=== PATIENT | female | born 1955 | race Caucasian/White ===

== ENCOUNTER 2025-08-19 16:02 | Inpatient (IN) | payer OTHER ==
[~2025-08-19] VITALS: Ht 160 cm; Wt 55.8 kg
--- NOTE | 2025-08-19 16:21 | ED.PDOC ---
History of Present Illness HPI Comments 70 year old female with PMHx COPD presents to the ED with a chief complaint of generalized weakness onset 1 week. Patient states she has been experiencing generalized weakness for the past week, worsened today. She is usually on home O2, 2L due to COPD. Patient noticed bilateral leg weakness, cough, sore throat. Denies chest pain, headache, nausea, vomiting, diarrhea, hematuria, dizziness. No other symptoms or modifying factors present at this time. Chief Complaint: General Weakness Time Seen by MD: 16:20 Reviewed Notes: Medications, Allergies Allergies: Coded Allergies: Acetaminophen (Verified Allergy, Severe, 08/19/25) Codeine (Verified Allergy, Severe, 08/19/25) Home Meds Reported Medications Omeprazole (Gnp Omeprazole) 20 Mg Tab, 40 MG PO, TAB 08/20/25 Primidone (Primidone) 125 Mg Tab, 1 TAB PO BID 08/20/25 Information Source: Patient, Emergency Med Personnel Mode of Arrival: EMS Severity: Moderate Timing: Weeks Duration: Since onset Prehospital treatment: None Past Medical History PAST MEDICAL HISTORY: COPD Surgical History: Denies all surgeries GRINDER HAND History: No Pertinent GRINDER HAND History Family History Family History: Reviewed,noncontributory to illness, No family hx of Cancer, No family hx of DM, No family hx of Heart joanne, No family hx of HTN, No family hx ofKidney joanne, No family hx of Liver joanne, No family hx of Lung joanne, No family hx of Stroke Social History Smoker: Non-Smoker Alcohol: Denies ETOH Use Drugs: Denies Drug Use Lives In: Home Constitutional: reports: weakness; denies: chills, diaphoresis, fatigue, fever, malaise, sweats, others EENTM: reports: throat pain; denies: blurred vision, double vision, ear bleeding, ear discharge, ear drainage, ear pain, ear ringing, eye pain, eye redness, hearing loss, mouth pain, mouth swelling, nasal discharge, nose bleeding, nose congestion, nose pain, photophobia, tearing, throat swelling, voice changes, others Respiratory: reports: cough; denies: hemoptysis, orthopnea, SOB at rest, shortness of breath, SOB with excertion, stridor, wheezing, others Cardiovascular: denies: chest pain, dizzy spells, diaphoresis, Dyspnea on exertion, edema, irregular heart beat, left arm pain, lightheadedness, palpitations, PND, syncope, others Gastrointestinal: denies: abdomen distended, abdominal pain, blood streaked bowels, constipated, diarrhea, dysphagia, difficulty swallowing, hematemesis, melena, nausea, poor appetite, poor fluid intake, rectal bleeding, rectal pain, vomiting, others Genitourinary: denies: abnormal vagina bleeding, burning, dyspareunia, dysuria, flank pain, frequency, hematuria, incontinence, pain, , vagina discharge, urgency, others Neurological: reports: weakness; denies: dizziness, fainting, headache, left sided numbness, left sided weakness, numbness, paresthesia, pre-existing deficit, right sided numbness, right sided weakness, seizure, speech problems, tingling, tremors, others Musculoskeletal: denies: back pain, gout, joint pain, joint swelling, muscle pain, muscle stiffness, neck pain, others Integumetry: denies: bruises, change in color, change in hair/nails, dryness, laceration, lesions, lumps, rash, wounds, others Allergic/Immunocompromised: denies: Difficulty Healing, Frequent Infections, Hives, Itching, others Hematologic/Lymphatic: denies: anemia, blood clots, easy bleeding, easy bruising, swollen glands, others Endocrine: denies: excessive hunger, excessive sweating, excessive thirst, excessive urination, flushing, intolerance to cold, intolerance to heat, unexplained weight gain, unexplained weight loss, others Psychiatric: denies: anxiety, bipolar disorder, depression, hopeless, panic disorder, schizophrenia, sleepless, suicidal, others All Other Systems: Reviewed and Negative Physical Exam General Appearance: Normal HEENT: Normal ENT Inspection, Pharynx Normal, TMs Normal Neck: Full Range of Motion, Non-Tender, Normal, Normal Inspection Respiratory: Chest Non-Tender, Lungs Clear, No Accessory Muscle Use, No Respiratory Distress, Normal Breath Sounds Cardiovascular: No Edema, No JVD, No Murmur, No Gallop, Normal Peripheral Pulses, Regular Rate/Rhythm Breast Exam: Deferred Gastrointestinal: No Organomegaly, Non Tender, No Pulsatile Mass, Normal Bowel Sounds, Soft Genitalia: Deferred Pelvic: Deferred Rectal: Deferred Extremities: No calf tenderness, Normal capillary refill, Normal inspection, Normal range of motion, Non-tender, No pedal edema Musculoskeletal : Apperance: Normal Neurologic: Alert, cookie mixer helper II-XII nml as Tested, No Motor Deficits, Normal Affect, Normal Mood, No Sensory Deficits Cerebellar Function: Normal Reflexes: Normal Skin: Dry, Normal Color, Warm Lymphatic: No Adenopathy Was a procedure done? Was a procedure done?: No Differential Dx Considerations may include: ACS, CHF, COPD, CVA, electrolyte abnormality X-Ray, Labs, Meds, VS Vital Signs Date Time Temp Pulse Resp B/P (MAP) Pulse Ox O2 Delivery O2 Flow Rate FiO2 08/19/25 20:01 98 Room Air* 0 21 08/19/25 18:43 99.0 72 14 137/65 (89) 99 99.0 08/19/25 16:12 73 08/19/25 16:05 98.9 88 15 140/69 100 98.9 Lab Test 08/19/25 19:59 08/19/25 17:58 08/19/25 17:05 08/19/25 16:50 Range/Units Troponin I High Sensitivity 38 *H 38 *H 40 *H </=34 ng/L White Blood Count 2.3 L 4.4-10.8 10^3/uL Red Blood Count 3.60 L 4.0-5.20 10^6/uL Hemoglobin 11.0 L 12.2-16.2 g/dL Hematocrit 35.0 L 36.0-46.0 % Mean Corpuscular Volume 97.4 80.0-100.0 fL Mean Corpuscular Hemoglobin 30.7 28.0-32.0 pg Mean Corpuscular Hemoglobin Concent 31.5 L 32.0-36.0 g/dL Red Cell Distribution Width 22.0 H 11.8-14.3 % Platelet Count 170 140-450 10^3/uL Mean Platelet Volume 6.8 L 6.9-10.8 fL Neutrophils (%) (Auto) 75.3 37.0-80.0 % Lymphocytes (%) (Auto) 16.2 10.0-50.0 % Monocytes (%) (Auto) 7.4 0.0-12.0 % Eosinophils (%) (Auto) 0.3 0.0-7.0 % Basophils (%) (Auto) 0.8 0.0-2.0 % Neutrophils # (Auto) 1.7 1.6-8.6 10 ^3/uL Lymphocytes # (Auto) 0.4 0.4-5.4 10 ^3/uL Monocytes # (Auto) 0.2 0-1.3 10 ^3/uL Eosinophils # (Auto) 0 0-0.8 10 ^3/uL Basophils # (Auto) 0 0-0.2 10 ^3/uL Nucleated Red Blood Cells 0.5 % Sodium Level 142 136-145 mmol/L Potassium Level 2.9 L 3.5-5.1 mmol/L Chloride Level 104 98-107 mmol/L Carbon Dioxide Level 20 20-31 mmol/L Anion Gap 18 H 5-15 Blood Urea Nitrogen 6 L 9-23 mg/dL Creatinine 0.76 0.550-1.02 mg/dL Glomerular Filtration Rate Calc 84 >90 mL/min BUN/Creatinine Ratio 7.9 L 10.0-20.0 Serum Glucose 68 L 74-106 mg/dL Lactic Acid Level 0.7 0.4-2.0 mmol/L Calcium Level 7.9 L 8.7-10.4 mg/dL Total Bilirubin 0.8 0.2-1.0 mg/dL Aspartate Amino Transferase (AST) 24 13-40 U/L Alanine Aminotransferase (ALT) 17 7-40 U/L Alkaline Phosphatase 82 46-116 U/L Total Protein 6.2 5.7-8.2 g/dL Albumin 3.8 3.2-4.8 g/dL Lipase 21 12-53 U/L Urine Color Light-yellow Yellow Urine Clarity Clear Clear Urine pH 6.0 5.0-9.0 Urine Specific [place] 1.014 1.001-1.035 Urine Protein Trace H Negative Urine Ketones 4+ H Negative Urine Blood Negative Negative /uL Urine Nitrite Negative Negative Urine Bilirubin Negative Negative Urine Urobilinogen Normal Negative mg/dL Urine Leukocyte Esterase Negative Negative /uL Urine RBC 1 0 - 4 /hpf Urine Microscopic WBC 1 0-5 /HPF Urine Squamous Epithelial Cells Few <5 /hpf Urine Bacteria None seen None Seen /hpf Urine Glucose Normal Normal mg/dL Microbiology Date/Time Source Procedure Growth Status 08/19/25 17:15 Blood Blood Culture - Preliminary NO GROWTH AFTER 48 HOURS OF INCUBATION. Resulted 08/19/25 17:05 Blood Blood Culture - Preliminary NO GROWTH AFTER 48 HOURS OF INCUBATION. Resulted 08/19/25 16:50 Voided Urine Urine Culture - Preliminary Resulted Time of 1ST Reevaluation: 16:50 Reevaluation 1ST: Unchanged Patient Education/Counseling: Diagnosis, Treatment, Prognosis Family Education/Counseling: No Family Present SEPSIS Sepsis Screen Date sepsis recognized/suspect: Aug 19, 2025 Time Sepsis recognized/suspect: 1605 Recent Procedure: No On Antibiotic Therapy: No Respiratory Rate >20: No Heart Rate >90: No Temp<36 C (96.8 F) or >38.3 C: No SBP <90 or MAP <65 mmHG: No New Acute Mental Status Change: No Is the patient on CPAP, BIPAP,: No Physician Orders Chest Portable (08/19/25 16:17) Head Without Contrast (08/19/25 16:17) Blood Culture (08/19/25 16:17) Urine Bacterial Culture (08/19/25 16:17) Electrocardigram (08/19/25 17:17) Electrocardigram (08/19/25 19:17) Atorvastatin (Lipitor) (08/20/25 22:00) Albuterol Medneb (Ventolin Medneb) (08/19/25 22:45) Aspirin Tablet (08/20/25 10:00) Admit (08/19/25 22:33) Ondansetron Hcl (Zofran) (08/19/25 22:45) Cardiac Diet-2gna,Lofat,Lochol (08/20/25 Breakfast) Condition: Stable (08/19/25 22:33) Bedrest With Bathroom Privileg (08/19/25 22:33) Pt Request For Service (08/19/25 22:33) Vital Signs Date Time Temp Pulse Resp B/P (MAP) Pulse Ox O2 Delivery O2 Flow Rate FiO2 08/19/25 20:01 98 Room Air* 0 21 08/19/25 18:43 99.0 72 14 137/65 (89) 99 99.0 08/19/25 16:12 73 08/19/25 16:05 98.9 88 15 140/69 100 98.9 Laboratory Tests Test 08/19/25 17:05 Lactic Acid Level 0.7 mmol/L (0.4-2.0) White Blood Count 2.3 10^3/uL (4.4-10.8) L Departure 1 Departure Time of Disposition: 19:04 Impression: Primary Impression: Generalized weakness Additional Impressions: Unable to ambulate Hypokalemia Elevated troponin Disposition: ADMITTED INPATIENT Admit to: Tele Condition: Guarded Discharged With: Self Critical Care Note Critical Care Time?: No Stability Stability form required: No Heart Score Heart Score: Heart Score Response (Comments) Value History N/A 0 EKG N/A 0 Age N/A 0 Risk Factors N/A 0 Troponin N/A 0 Total 0 I personally scribed for NICOLE LOUISE MD ([email or web address]) on 08/19/25 at 16:21. Electronically submitted by Katey Gutiérrez ([email or web address]). NICOLE LOUISE MD Aug 19, 2025 16:21 DANN SANDERS DO Aug 19, 2025 19:05
--- NOTE | 2025-08-19 16:56 | ECG ---
[facility] Test Date: 2025-08-19 Test Time: 16:12:26 Pat Name: DAMIEN COPELAND Department: Room: 0219 Gender: F Health Promoter: RADHA : 1955 Requested By: NICOLE LOUISE Order Number: [id number] Reading MD: Ceferino Chong Measurements Intervals [place] Rate: 73 P: 40 MI: 113 QRS: 64 QRSD: 101 T: -53 QT: 396 QTc: 437 Interpretive Statements Sinus rhythm Borderline short MI interval RSR' in V1 or V2, right VCD or RVH Borderline T abnormalities, diffuse leads Baseline wander in lead(s) V1 Electronically Signed On 08-22-2025 19:22:28 PST by Ceferino Chong Please click the below link to view image of tracing.
[2025-08-19 17:36] LABS: Hematocrit 35.0 % (36.0-46.0); Hemoglobin 11.0 g/dL (12.2-16.2); Mean Corpuscular Hemoglobin 30.7 pg (28.0-32.0); Mean Corpuscular Volume 97.4 fL (80.0-100.0); Nucleated Red Blood Cells % 0.5 %
[2025-08-19 18:47] LABS: Alanine Aminotransferase 17 U/L (7-40); Albumin 3.8 g/dL (3.2-4.8); Alkaline Phosphatase 82 U/L (46-116); Anion Gap 18 (5-15); BUN/Creatinine Ratio 7.9 (10.0-20.0); Bilirubin, Total 0.8 mg/dL (0.2-1.0); Chloride 104 mmol/L (98-107); Lipase 21 U/L (12-53); Sodium 142 mmol/L (136-145); Total Protein 6.2 g/dL (5.7-8.2)
[2025-08-19 18:48] LABS: Urine Protein, UAD TRACE (Negative)
[2025-08-19 18:55] LABS: Blood Urea Nitrogen 6 mg/dL (9-23); Calcium 7.9 mg/dL (8.7-10.4); Carbon Dioxide 20 mmol/L (20-31); Glucose 68 mg/dL (74-106); Potassium 2.9 mmol/L (3.5-5.1)
--- NOTE | 2025-08-19 19:04 | DVH ---
Procedure: CT HEAD WITHOUT CONTRAST Study Date and Requested Time: 08/19/2025 06:19 PM History: weakness Comparison: None Dose: CTDI: 51.33 mGy DLP: 1.71 mGycm Technique: Multiplanar images obtained through the brain without intravenous contrast. Findings: [id number] Diffuse brain atrophy Mild chronic small vessel ischemic changes. Right posterior frontal lobe areas of hypodensity with associated Adjacent prominent sulci. No hemorrhages, masses, mass effect, midline shift, herniation or cytotoxic edema following a large vascular territory. No intra-axial or extra-axial fluid collections. No evidence of hydrocephalus. The basal cisterns are patent. The pituitary gland, sella and parasellar regions are unremarkable. The cerebellar tonsils are in normal position. The cerebellum is unremarkable. Bilateral lens replacement. Otherwise, orbits and globes are unremarkable. The paranasal sinuses and mastoids are clear. There are no worrisome calvarial lesions. 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 Superimposed acute infarct can not be completely excluded. If there is concern for acute infarct, MRI should be considered for further evaluation.
--- NOTE | 2025-08-19 19:21 | DVH ---
CHEST RADIOGRAPH Indication: weakness Technique: Single frontal view of the chest was obtained Comparison: XR CHEST 1 VIEW on DOS: 06/14/25 FINDINGS: Lines and Tubes: None Lungs: No focal consolidation. Pleura: No effusion. No pneumothorax. Cardiomediastinal contours: Unremarkable Bones: No acute osseous abnormality. IMPRESSION: 1. No acute cardiopulmonary disease.
[2025-08-19 20:01] VITALS: O2SAT 98
[2025-08-19] MEDS: POTASSIUM CHL 20 Meq TABLET PO ONE (20:01)
[2025-08-19] MEDS: ASPirin-EC 325mg tab PO ONE (22:08)
[2025-08-20] VITALS (11 sets, daily range): BP systolic 137–156; BP diastolic 76–82; PULSE 73–83; RESP 14–18; TEMP 97.6–98.2; O2SAT 90–99
--- NOTE | 2025-08-20 00:58 | DVHHP2 ---
History of Present Illness Reason for Visit: Generalized weakness History of Present Illness 70-year-old female presents for evaluation of generalized weakness. Patient reports a one-week history of worsening generalized weakness. Patient reports having bilateral lower extremity pain and weakness making it difficult to ambula te. Patient reports living alone and does not have anyone to assist her. Denies unilateral weakness or slurred speech. No cardiac or respiratory complaints. Past Medical History COPD Past Surgical History Denies Family History Noncontributory Smoke: No ALCOHOL: none Drugs: None Lives: Alone Review of Systems Review of Systems Review of systems are currently negative otherwise addressed in HPI. Allergies: Coded Allergies: Acetaminophen (Verified Allergy, Severe, 08/19/25) Codeine (Verified Allergy, Severe, 08/19/25) Medications Current Medications Medications Dose Ordered Sig/Darci Route Start Time Stop Time Status Last Admin Dose Admin Atorvastatin Calcium 10 mg HS PO 08/20/25 22:00 Albuterol 2.5 mg Q6HPRN PRN NEB 08/19/25 22:45 Aspirin 81 mg DAILY PO 08/20/25 10:00 Ondansetron HCl 4 mg Q4HP PRN IV 08/19/25 22:45 Enoxaparin Sodium 40 mg DAILY SC 08/20/25 10:00 Exam Vital Signs Vital Signs Date Time Temp Pulse Resp B/P (MAP) Pulse Ox O2 Delivery O2 Flow Rate FiO2 08/20/25 00:19 80 18 0.0 21 08/20/25 00:16 96 Room Air* 08/19/25 23:17 98.5 128/63 (84) 98.5 Exam Gen: 70-year-old female in mild distress. Skin: Warm, dry, normal color and texture, no rash. HEENT: Normocephalic atraumatic, mucous membranes moist and pink. Neck: Cervical and supraclavicular nodes normal without enlargement, trachea is midline, thyroid gland is normal without masses. Pulmonary: Clear to auscultation and percussion bilaterally. Cardiac: Regular rate and rhythm. No murmur Abdomen: Soft, nontender, nondistended, bowel sounds present all 4 quadrants, no guarding, no rigidity, no organomegaly. Extremities: No cyanosis, clubbing, no edema Neuro: Cranial nerves II through XII grossly intact, normal affect and speech, no focal motor deficits. Labs/Xrays Labs Test 08/19/25 19:59 08/19/25 17:05 08/19/25 16:50 Range/Units Troponin I High Sensitivity 38 *H </=34 ng/L White Blood Count 2.3 L 4.4-10.8 10^3/uL Red Blood Count 3.60 L 4.0-5.20 10^6/uL Hemoglobin 11.0 L 12.2-16.2 g/dL Hematocrit 35.0 L 36.0-46.0 % Mean Corpuscular Volume 97.4 80.0-100.0 fL Mean Corpuscular Hemoglobin 30.7 28.0-32.0 pg Mean Corpuscular Hemoglobin Concent 31.5 L 32.0-36.0 g/dL Red Cell Distribution Width 22.0 H 11.8-14.3 % Platelet Count 170 140-450 10^3/uL Mean Platelet Volume 6.8 L 6.9-10.8 fL Neutrophils (%) (Auto) 75.3 37.0-80.0 % Lymphocytes (%) (Auto) 16.2 10.0-50.0 % Monocytes (%) (Auto) 7.4 0.0-12.0 % Eosinophils (%) (Auto) 0.3 0.0-7.0 % Basophils (%) (Auto) 0.8 0.0-2.0 % Neutrophils # (Auto) 1.7 1.6-8.6 10 ^3/uL Lymphocytes # (Auto) 0.4 0.4-5.4 10 ^3/uL Monocytes # (Auto) 0.2 0-1.3 10 ^3/uL Eosinophils # (Auto) 0 0-0.8 10 ^3/uL Basophils # (Auto) 0 0-0.2 10 ^3/uL Nucleated Red Blood Cells 0.5 % Sodium Level 142 136-145 mmol/L Potassium Level 2.9 L 3.5-5.1 mmol/L Chloride Level 104 98-107 mmol/L Carbon Dioxide Level 20 20-31 mmol/L Anion Gap 18 H 5-15 Blood Urea Nitrogen 6 L 9-23 mg/dL Creatinine 0.76 0.550-1.02 mg/dL Glomerular Filtration Rate Calc 84 >90 mL/min BUN/Creatinine Ratio 7.9 L 10.0-20.0 Serum Glucose 68 L 74-106 mg/dL Lactic Acid Level 0.7 0.4-2.0 mmol/L Calcium Level 7.9 L 8.7-10.4 mg/dL Total Bilirubin 0.8 0.2-1.0 mg/dL Aspartate Amino Transferase (AST) 24 13-40 U/L Alanine Aminotransferase (ALT) 17 7-40 U/L Alkaline Phosphatase 82 46-116 U/L Total Protein 6.2 5.7-8.2 g/dL Albumin 3.8 3.2-4.8 g/dL Lipase 21 12-53 U/L Urine Color Light-yellow Yellow Urine Clarity Clear Clear Urine pH 6.0 5.0-9.0 Urine Specific [place] 1.014 1.001-1.035 Urine Protein Trace H Negative Urine Ketones 4+ H Negative Urine Blood Negative Negative /uL Urine Nitrite Negative Negative Urine Bilirubin Negative Negative Urine Urobilinogen Normal Negative mg/dL Urine Leukocyte Esterase Negative Negative /uL Urine RBC 1 0 - 4 /hpf Urine Microscopic WBC 1 0-5 /HPF Urine Squamous Epithelial Cells Few <5 /hpf Urine Bacteria None seen None Seen /hpf Urine Glucose Normal Normal mg/dL SEPSIS Sepsis Screen Date sepsis recognized/suspect: Aug 19, 2025 Time Sepsis recognized/suspect: 1606 Recent Procedure: No On Antibiotic Therapy: No Respiratory Rate >20: No Heart Rate >90: No Temp<36 C (96.8 F) or >38.3 C: No SBP <90 or MAP <65 mmHG: No New Acute Mental Status Change: No Is the patient on CPAP, BIPAP,: No Physician Orders Atorvastatin (Lipitor) (08/20/25 22:00) Albuterol Medneb (Ventolin Medneb) (08/19/25 22:45) Aspirin Tablet (08/20/25 10:00) Basic Metabolic Panel (08/20/25 04:00) Admit (08/19/25 22:33) Ondansetron Hcl (Zofran) (08/19/25 22:45) Enoxaparin Sodium (Lovenox) (08/20/25 10:00) Complete Blood Count (08/20/25 04:00) Cardiac Diet-2gna,Lofat,Lochol (08/20/25 Breakfast) Condition: Stable (08/19/25 22:33) Bedrest With Bathroom Privileg (08/19/25 22:33) Pt Request For Service (08/19/25 22:33) Vital Signs Date Time Temp Pulse Resp B/P (MAP) Pulse Ox O2 Delivery O2 Flow Rate FiO2 08/20/25 00:19 80 18 0.0 21 08/20/25 00:16 96 Room Air* 0 21 08/20/25 00:16 96 Room Air 0.0 08/19/25 23:17 98.5 75 18 128/63 (84) 95 98.5 08/19/25 20:01 98 Room Air* 0 21 08/19/25 18:43 99.0 72 14 137/65 (89) 99 99.0 Laboratory Tests Test 08/19/25 17:05 Lactic Acid Level 0.7 mmol/L (0.4-2.0) White Blood Count 2.3 10^3/uL (4.4-10.8) L Medications Medications Dose Ordered Sig/Darci Route Start Time Stop Time Status Last Admin Dose Admin Aspirin 325 mg ONCE ONCE PO 08/19/25 21:15 08/19/25 21:16 DC 08/19/25 22:08 325 MG Potassium Chloride 40 meq ONCE ONCE PO 08/19/25 19:15 08/19/25 19:16 DC 08/19/25 20:01 40 MEQ Assessment/Plan Assessment/Plan Assessment Generalized weakness Hypokalemia Elevated troponin, downtrending Neutropenia Plan Admit the patient to [facility] to the hospitalist Physical therapy eval Social service consult for possible placement MRI of the brain pending Continue treatment per orders. Plan discussed with: Patient My Orders Orders - PRANAY ARMENTASiria Procedure Category Date Status Time Atorvastatin (Lipitor) PHA 08/20/25 In Process 22:00 Albuterol Medneb PHA 08/19/25 In Process (Ventolin Medneb) 22:45 Aspirin Tablet PHA 08/20/25 In Process 10:00 Basic Metabolic Panel LAB 08/20/25 Logged 04:00 Admit ADMIT 08/19/25 Transmitted 22:33 Ondansetron Hcl PHA 08/19/25 In Process (Zofran) 22:45 Enoxaparin Sodium PHA 08/20/25 In Process (Lovenox) 10:00 Complete Blood Count LAB 08/20/25 Logged 04:00 Cardiac DIET 08/20/25 Transmitted Diet-2gna,Lofat,Lochol Breakfast Condition: Stable SANDY 08/19/25 In Process 22:33 Bedrest With Bathroom SANDY 08/19/25 In Process Privileg 22:33 Pt Request For Service PT 08/19/25 Logged 22:33 Date of Service: Aug 19, 2025 Billing Provider: PRANAY ARMENTA Common Visit Codes: [id number] INP/OBS CARE (MOD) PRANAY ARMENTA Aug 20, 2025 00:58
[2025-08-20 05:00] LABS: Chloride 103 mmol/L (98-107); Sodium 142 mmol/L (136-145)
[2025-08-20 05:01] LABS: Anion Gap 19 (5-15)
[2025-08-20 05:02] LABS: Calcium 9.0 mg/dL (8.7-10.4)
[2025-08-20 05:03] LABS: Carbon Dioxide 20 mmol/L (20-31); Potassium 3.1 mmol/L (3.5-5.1)
[2025-08-20 05:06] LABS: BUN/Creatinine Ratio 6.5 (10.0-20.0); Glucose 99 mg/dL (74-106)
[2025-08-20 05:08] LABS: Blood Urea Nitrogen 6 mg/dL (9-23); Hematocrit 40.8 % (36.0-46.0); Hemoglobin 12.7 g/dL (12.2-16.2); Mean Corpuscular Hemoglobin 30.2 pg (28.0-32.0); Mean Corpuscular Volume 97.3 fL (80.0-100.0); Nucleated Red Blood Cells % 0.4 %
[2025-08-20] MEDS ORDERED: PRIM125T PO (05:59)
[2025-08-20] MEDS ORDERED: OMEP20TA PO (05:59)
--- NOTE | 2025-08-20 09:07 | DVH ---
CLINICAL HISTORY: r/o cva TECHNIQUE: Routine multiplanar imaging of the brain was performed without gadolinium contrast. COMPARISON: CT HEAD WITHOUT CONTRAST on DOS: 08/19/25 FINDINGS: There is no abnormal restricted diffusion to suggest acute infarction. There is mild brain volume loss. There is a small to moderate old infarct involving the right posterior frontal and parietal lobes. There is no evidence for acute ischemic changes, mass, mass effect, or extra- axial fluid collection. There is no hydrocephalus or midline shift. The cerebral sulci and subarachnoid cisterns are not effaced. The imaged paranasal sinuses are clear. There has been bilateral cataract extraction. The midline structures, including the corpus callosum, are unremarkable. The intracranial flow voids are maintained. IMPRESSION: No acute intracranial abnormality seen. No evidence for acute infarct. 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 Bilateral cataract extraction.
[2025-08-20] MEDS: ENOXAPARIN SOD 40 MG/0.4 ML SYRINGE SC SCH (09:34)
--- NOTE | 2025-08-20 13:13 | DVHPN2 ---
Reviewed: Care Plan, H&P, Labs, Medications, Previous Orders, Radiology Changes from previous H/P or p: No Changes Objective Vitals Vital Signs Date Time Temp Pulse Resp B/P (MAP) Pulse Ox O2 Delivery O2 Flow Rate FiO2 08/20/25 10:00 96 Nasal Cannula 2.0 08/20/25 10:00 21 08/20/25 08:30 97.9 78 14 141/76 (97) 97.9 Intake/Output Intake and Output 08/20/25 07:00 Intake Total 240 ml Balance 240 ml Intake Oral 240 ml # Voids 1 Medications Current Medications Medications Dose Ordered Sig/Darci Route Start Time Stop Time Status Last Admin Dose Admin Atorvastatin Calcium 10 mg HS PO 08/20/25 22:00 Albuterol 2.5 mg Q6HPRN PRN NEB 08/19/25 22:45 Aspirin 81 mg DAILY PO 08/20/25 10:00 08/20/25 09:34 81 MG Ondansetron HCl 4 mg Q4HP PRN IV 08/19/25 22:45 Enoxaparin Sodium 40 mg DAILY SC 08/20/25 10:00 08/20/25 09:34 40 MG Mupirocin 1 applic BID EACHNOSTRI 08/20/25 22:00 08/25/25 21:59 UNV Laboratory Results Laboratory Tests 08/20/25 04:15 Chemistry Test 08/19/25 17:05 08/20/25 04:15 Albumin 3.8 g/dL (3.2-4.8) Calcium Level 7.9 mg/dL (8.7-10.4) L 9.0 mg/dL (8.7-10.4) Total Protein 6.2 g/dL (5.7-8.2) Lipid panel Test 08/19/25 17:05 Lipase 21 U/L (12-53) LFT Test 08/19/25 17:05 Alanine Aminotransferase (ALT) 17 U/L (7-40) Alkaline Phosphatase 82 U/L (46-116) Aspartate Amino Transferase (AST) 24 U/L (13-40) Total Bilirubin 0.8 mg/dL (0.2-1.0) Urinalysis Test 08/19/25 16:50 Urine Color Light-yellow (Yellow) Urine Clarity Clear (Clear) Urine pH 6.0 (5.0-9.0) Urine Specific [place] 1.014 (1.001-1.035) Urine Protein Trace (Negative) H Urine Ketones 4+ (Negative) H Urine Blood Negative /uL (Negative) Urine Nitrite Negative (Negative) Urine Bilirubin Negative (Negative) Urine Urobilinogen Normal mg/dL (Negative) Urine Leukocyte Esterase Negative /uL (Negative) Urine RBC 1 /hpf (0 - 4) Urine Microscopic WBC 1 /HPF (0-5) Urine Squamous Epithelial Cells Few /hpf (<5) Urine Bacteria None seen /hpf (None Seen) Urine Glucose Normal mg/dL (Normal) Microbiology Microbiology Date/Time Source Procedure Growth Status 08/19/25 16:50 Voided Urine Urine Culture - Preliminary No growth Resulted Labs and/or images reviewed: Labs reviewed by me, Image(s) reviewed by me Assessment/Plan Assessment/Plan Acute Generalized weakness Acute Hypokalemia potassium 2.9: Replace potassium Elevated troponin, downtrending Neutropenia WBC 2.5 Chronic anemia hemoglobin 11 Acute COPD exacerbation Unsteady gait Chest x-ray negative CT head shows chronic right posterior frontal infarct MRI brain shows chronic right posterior frontal infarct: Consult for Neurology Dr. Tong Patient lives alone: Social service consult Time spent 70 minutes Advanced care planning time 20 minutes Patient is full code Plan discussed with: Patient My Orders Orders - RACH WU MD Procedure Category Date Status Time Mupirocin 2% Oint PHA 08/20/25 Logged Mrsa Nares (Bactroban 22:00 Date of Service: Aug 20, 2025 Billing Provider: RACH WU MD Common Visit Codes: [id number] CARE 30-74 MIN RACH WU MD Aug 20, 2025 13:13
[2025-08-20] MEDS: POTASSIUM EFFERVESENT TAB 25 MEQ PO ONE (15:06)
[2025-08-20 16:40] LABS: COVID19 ANTIGEN SOFIA FIA NEGATIVE (NEGATIVE)
[2025-08-20] MEDS: ATORVASTATIN 20 MG TAB PO SCH (20:51)
--- NOTE | 2025-08-20 21:51 | DVHINCON2 ---
Date of service: Aug 20, [address] De Jesus Reason for Consultation Unsteady gait History of Present Illness This is a difficult and complicated consultation Ms. Yanez is a 70 years old right-handed female with a history of breast cancer, COPD on home oxygen, she came to the [facility] on 08/19/2025 with a chief complaint of general weakness, gait disturbance, at that time, he is alert, oriented x3, but is a poor historian. She has a gait disturbance for a while, in early 2024, the patient could walk up to 30 ft, her gait disturbance has been progressively getting worse since 04/2025, especially in lasts a few weeks, she could hardly walk. About eight years ago, she developed acute left-sided weakness, she was seen in the local hospital, stroke was confirmed after MR brain scan. Patient has some recovery after rehab. At home, he is on aspirin 81 mg daily, Crystal 5 mg daily Coincidentally after the stroke eight years ago, the patient has fecal incontinence but bladder control is normal He is tingling and numbness in both feet, at that time she has burning pain, worse with walking, he was said to have polyneuropathy He has reports pain in the lumbar spine for 3-4 months of time She had shaking in both legs when he walks, he was said to have wobbling leg, she has been on primidone with good results. He only occasionally has tremor in the hands when he is carrying an object. No family history of tremors. She does not touch alcohol at all Urinalysis, 08/19/2025: Unremarkable WBC/HB/PLT/MCV, 08/20/2025: 3.1/12.7/201/97.3 BMP, 08/19/2025: Unremarkable Liver function tests, 08/19/2025: Unremarkable CT head, 08/19/2025: Right posterior frontal lobe suggested area of Chronic infarct. Superimposed acute infarct can not be completely excluded. If there is concern for acute infarct, MRI should be considered for further evaluation MRI head, 08/20/2025: No acute intracranial abnormality seen. No evidence for acute infarct. 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 Bilateral cataract extraction. Past Medical History COPD, breast cancer. No hypertension, no diabetes Past Surgical History Lumpectomy for breast cancer Family History: Patient reports no known family medical history. Family History Hypertension, diabetes, heart disease no tremor Social History She is a not-smoker, she does not touch alcohol, she has no history of drug abuse Allergies: Coded Allergies: Acetaminophen (Verified Allergy, Severe, 08/19/25) Codeine (Verified Allergy, Severe, 08/19/25) Home Meds Reported Medications Omeprazole (Gnp Omeprazole) 20 Mg Tab, 40 MG PO, TAB 08/20/25 Primidone (Primidone) 125 Mg Tab, 1 TAB PO BID 08/20/25 Current Medications Current Medications Medications (Trade) Dose Ordered Sig/Darci Route PRN Reason Start Time Stop Time Status Last Admin Atorvastatin Calcium (Lipitor) 10 mg HS PO 08/20/25 22:00 08/20/25 20:51 Albuterol (Ventolin Medneb) 2.5 mg Q6HPRN PRN NEB SHORTNESS OF BREATH 08/19/25 22:45 Aspirin 81 mg DAILY PO 08/20/25 10:00 08/20/25 09:34 Ondansetron HCl (Zofran) 4 mg Q4HP PRN IV NAUSEA / VOMITING 08/19/25 22:45 Enoxaparin Sodium (Lovenox) 40 mg DAILY SC 08/20/25 10:00 08/20/25 09:34 Mupirocin (Bactroban 2% Ointment) 1 applic BID EACHNOSTRI 08/20/25 22:00 08/20/25 14:10 DC Review of Systems As above, the other systems are negative Vital Signs Vital Signs Date Time Temp Pulse Resp B/P (MAP) Pulse Ox O2 Delivery O2 Flow Rate FiO2 08/20/25 21:00 98.1 73 18 153/79 (103) 98 98.1 08/20/25 10:00 Nasal Cannula 2.0 08/20/25 10:00 21 Physical Exam GENERAL EXAM: General: the patient is well developed and nourished. No acute distress. HEENT: Normocephalic, neck is supple, no carotid bruits. No mass. RESPIRATORY: Normal respiratory effort with symmetrical lung expansion. Lungs clear to auscultation. CARDIOVASCULAR: Regular rate and rhythm with no murmurs. S1, S2. ABDOMEN: Soft, nontender, normal bowel sound MUSCULOSKELETAL EXAM: Mild tenderness to palpation in the neck NEUROLOGICAL: MENTAL STATUS: Awake and alert. Oriented to person, place, time, poor historian SPEECH, LANGUAGE, HIGHER CORTICAL FUNCTION: no aphasia or dysathria. CRANIAL NERVES: #2: Intact visual whitehead to confrontation. The optic discs were sharp. #3,4,6: Pupils are equal, round and reactive. EOMs full and conjugate. No nystagmus. #5: Facial sensation intact in all three divisions bilaterally. Mandibular strength intact. #7: Facial muscles symmetrical and strength intact. #8: Hearing grossly normal to voice. #9,10: Uvula and soft palate rise in the midline. Swallow and voice are normal. #11: Trapezius and sternomastoid strength intact bilaterally. #12: Tongue midline. No fasciculations or atrophy. SENSATION: Sensation to touch and pinprick is diminished distally in the lower extremities, no sensory level MOTOR: Increased muscle tone in the left arm than leg, questionable increased tone in the right leg. Normal muscle bulk. No fasciculations. No abnormal movements or posturing. Muscle strength of the major groups in the upper extremities is 4/5 with the left-sided weaker. Muscle strength of the major groups in the lower extremities is 4/5. REFLEXES: Deep tendon reflexes: Arms: 3/4 with left-sided stronger, knees: 3/4, ankles: 3-4/4. No pathological reflexes. CEREBELLAR/COORDINATION: Finger to nose fine bilaterally. GAIT/STATION: deferred. Labs/Diagnostic Data Labs Test 08/20/25 15:35 08/20/25 14:29 08/20/25 04:15 08/19/25 19:59 Range/Units Influenza Type A Antigen Negative Negative Influenza Type B Antigen Negative Negative SARS-CoV-2 Antigen (Rapid) Negative NEGATIVE D-Dimer, Quantitative 3.07 H 0.0-0.49 mg/L FEU White Blood Count 3.1 #L 4.4-10.8 10^3/uL Red Blood Count 4.19 4.0-5.20 10^6/uL Hemoglobin 12.7 # 12.2-16.2 g/dL Hematocrit 40.8 # 36.0-46.0 % Mean Corpuscular Volume 97.3 80.0-100.0 fL Mean Corpuscular Hemoglobin 30.2 28.0-32.0 pg Mean Corpuscular Hemoglobin Concent 31.0 L 32.0-36.0 g/dL Red Cell Distribution Width 22.1 H 11.8-14.3 % Platelet Count 201 140-450 10^3/uL Mean Platelet Volume 7.0 6.9-10.8 fL Neutrophils (%) (Auto) 78.3 37.0-80.0 % Lymphocytes (%) (Auto) 14.2 10.0-50.0 % Monocytes (%) (Auto) 6.0 0.0-12.0 % Eosinophils (%) (Auto) 0.6 0.0-7.0 % Basophils (%) (Auto) 0.9 0.0-2.0 % Neutrophils # (Auto) 2.4 1.6-8.6 10 ^3/uL Lymphocytes # (Auto) 0.4 0.4-5.4 10 ^3/uL Monocytes # (Auto) 0.2 0-1.3 10 ^3/uL Eosinophils # (Auto) 0 0-0.8 10 ^3/uL Basophils # (Auto) 0 0-0.2 10 ^3/uL Nucleated Red Blood Cells 0.4 % Sodium Level 142 136-145 mmol/L Potassium Level 3.1 L 3.5-5.1 mmol/L Chloride Level 103 98-107 mmol/L Carbon Dioxide Level 20 20-31 mmol/L Anion Gap 19 H 5-15 Blood Urea Nitrogen 6 L 9-23 mg/dL Creatinine 0.92 0.550-1.02 mg/dL Glomerular Filtration Rate Calc 67 >90 mL/min BUN/Creatinine Ratio 6.5 L 10.0-20.0 Serum Glucose 99 74-106 mg/dL Calcium Level 9.0 8.7-10.4 mg/dL Troponin I High Sensitivity 38 *H </=34 ng/L Test 08/19/25 17:05 08/19/25 16:50 Range/Units Lactic Acid Level 0.7 0.4-2.0 mmol/L Total Bilirubin 0.8 0.2-1.0 mg/dL Aspartate Amino Transferase (AST) 24 13-40 U/L Alanine Aminotransferase (ALT) 17 7-40 U/L Alkaline Phosphatase 82 46-116 U/L Total Protein 6.2 5.7-8.2 g/dL Albumin 3.8 3.2-4.8 g/dL Lipase 21 12-53 U/L Urine Color Light-yellow Yellow Urine Clarity Clear Clear Urine pH 6.0 5.0-9.0 Urine Specific [place] 1.014 1.001-1.035 Urine Protein Trace H Negative Urine Ketones 4+ H Negative Urine Blood Negative Negative /uL Urine Nitrite Negative Negative Urine Bilirubin Negative Negative Urine Urobilinogen Normal Negative mg/dL Urine Leukocyte Esterase Negative Negative /uL Urine RBC 1 0 - 4 /hpf Urine Microscopic WBC 1 0-5 /HPF Urine Squamous Epithelial Cells Few <5 /hpf Urine Bacteria None seen None Seen /hpf Urine Glucose Normal Normal mg/dL Microbiology Date/Time Source Procedure Growth Status 08/19/25 17:15 Blood Blood Culture - Preliminary NO GROWTH AFTER 24 HOURS OF INCUBATION. Resulted 08/19/25 16:50 Voided Urine Urine Culture - Preliminary No growth Resulted Assessment General weakness Gait disturbance Chronic stroke Cervical spine myelopathy Subacute combined degeneration Polyneuropathy "Wobbling leg" Plan/Recommendation Monitoring Supportive treatment Med surge Vitamin B12, folic acid, TSH, FT4 HGB A1c MRI C-spine MRI thoracic spine Aspirin 81 mg daily Lipitor 10 mg daily Primidone 125 mg HS for now (was b.i.d. at home) Oxygen DVT prophylaxis Up to chair Physical therapy More recommendation per clinical course Prognosis: Poor This medical document was created using an electronic medical record system with [employer] dictation system. Although this document has been carefully reviewed, there may still be some phonetic and typographical errors. These areas are purely typographical due to imperfections of the software programs, and do not reflect any compromise in the patient's medical care. Plan discussed with: Patient, Other SUZAN ROLDAN MD Aug 20, 2025 21:51
[2025-08-20] MEDS ORDERED: MUPIROCIN 2% OINT 15gm or 22gm FOR MRSA NARES EACHNOSTRI SCH (22:00)
[2025-08-20] MEDS ORDERED: LORazepam 2MG/ML-1ML VIAL IV PRN (23:00)
[2025-08-20 23:38] LABS: Free T4 (Free Thyroxine) 0.75 ng/dL (0.89-1.76)
[2025-08-21] VITALS (11 sets, daily range): BP systolic 110–129; BP diastolic 47–64; PULSE 75–107; RESP 16–18; TEMP 97.2–98.5; O2SAT 90–99
[2025-08-21] MEDS: PRIMIDONE 50 MG TAB PO ONE (03:42)
--- NOTE | 2025-08-21 10:20 | DVHPN2 ---
Reviewed: Care Plan, H&P, Labs, Medications, Previous Orders, Radiology Changes from previous H/P or p: No Changes Objective Vitals Vital Signs Date Time Temp Pulse Resp B/P (MAP) Pulse Ox O2 Delivery O2 Flow Rate FiO2 08/21/25 10:00 99 Nasal Cannula* 2 28 08/21/25 08:40 97.6 75 16 128/63 (84) 97.6 Intake/Output Intake and Output 08/21/25 07:00 Intake Total 225 ml Output Total 0 ml Balance 225 ml Intake Oral 225 ml Output Stool Total 0 ml # Voids 9 Medications Current Medications Medications Dose Ordered Sig/Darci Route Start Time Stop Time Status Last Admin Dose Admin Atorvastatin Calcium 10 mg HS PO 08/20/25 22:00 08/20/25 20:51 10 MG Albuterol 2.5 mg Q6HPRN PRN NEB 08/19/25 22:45 Aspirin 81 mg DAILY PO 08/20/25 10:00 08/21/25 09:48 81 MG Ondansetron HCl 4 mg Q4HP PRN IV 08/19/25 22:45 Enoxaparin Sodium 40 mg DAILY SC 08/20/25 10:00 08/21/25 09:49 40 MG Primidone 125 mg HS PO 08/21/25 22:00 Lorazepam 1 mg ONCE PRN IV 08/20/25 23:00 Laboratory Results Laboratory Tests 08/20/25 04:15 Coagulation Test 08/20/25 14:29 D-Dimer, Quantitative 3.07 mg/L FEU (0.0-0.49) H HgA1c, TSH Test 08/20/25 17:58 08/20/25 19:59 Hemoglobin A1c 4.8 % A1C (<5.7) Thyroid Stimulating Hormone (TSH) 0.78 uIU/mL (0.55-4.78) Urinalysis Test 08/19/25 16:50 Urine Color Light-yellow (Yellow) Urine Clarity Clear (Clear) Urine pH 6.0 (5.0-9.0) Urine Specific [place] 1.014 (1.001-1.035) Urine Protein Trace (Negative) H Urine Ketones 4+ (Negative) H Urine Blood Negative /uL (Negative) Urine Nitrite Negative (Negative) Urine Bilirubin Negative (Negative) Urine Urobilinogen Normal mg/dL (Negative) Urine Leukocyte Esterase Negative /uL (Negative) Urine RBC 1 /hpf (0 - 4) Urine Microscopic WBC 1 /HPF (0-5) Urine Squamous Epithelial Cells Few /hpf (<5) Urine Bacteria None seen /hpf (None Seen) Urine Glucose Normal mg/dL (Normal) Microbiology Microbiology Date/Time Source Procedure Growth Status 08/19/25 17:15 Blood Blood Culture - Preliminary NO GROWTH AFTER 24 HOURS OF INCUBATION. Resulted 08/19/25 16:50 Voided Urine Urine Culture - Preliminary No growth Resulted Labs and/or images reviewed: Labs reviewed by me, Image(s) reviewed by me Assessment/Plan Assessment/Plan Acute Generalized weakness Acute Hypokalemia potassium 2.9: Replace potassium Elevated troponin, downtrending Neutropenia WBC 2.5 Chronic anemia hemoglobin 11 Acute COPD exacerbation Unsteady gait Chronic stroke Cervical spine myelopathy Chest x-ray negative CT head shows chronic right posterior frontal infarct MRI brain shows chronic right posterior frontal infarct: Consult for Neurology Dr. Tong, primidone 125 mg p.o. HS Bipedal edema: Venous ultrasound rule out DVT Patient lives alone: Social service consult Time spent 60 minutes Advanced care planning time 20 minutes Patient is full code Plan discussed with: Patient My Orders Orders - RACH WU MD Procedure Category Date Status Time * Neurology Consult CONS 08/20/25 Transmitted 13:08 Date of Service: Aug 21, 2025 Billing Provider: RACH WU MD Common Visit Codes: [id number] INP/OBS CARE(HIGH) RACH WU MD Aug 21, 2025 10:20
[2025-08-21] MEDS: ONDANSETRON HCL 4 MG/2 ML VIAL IV PRN (12:23)
--- NOTE | 2025-08-21 12:48 | DVH ---
EXAM: MRI THORACIC SPINE WITHOUT HISTORY: Combined subacute degeneration COMPARISON: CT scan of the chest dated 06/14/2025 was not made available on the PACS system for viewing. TECHNIQUE: Multiplanar multisequence noncontrast MR images of the thoracic spine were performed. FINDINGS: No fracture or listhesis are identified in the thoracic spine. There is mild degenerative disc disease without significant spinal canal stenosis at any level in the thoracic spine. No abnormal signal is identified in the thoracic spinal cord. The conus terminates at L1. There is Advanced lower Cervical degenerative disc disease, not fully imaged here. The heart is enlarged. There are bilateral pleural effusions, larger on the right. There is a gallstone in the dependent portion of the gallbladder measuring 2.2 cm (image 59, series 15). IMPRESSION: 1. No fracture of the thoracic spine. 2. Mild thoracic and advanced lower cervical degenerative disc disease. No high- grade spinal canal stenosis at any level in the thoracic spine. 3. Cardiomegaly and bilateral pleural effusions suggestive of CHF. This is better appreciated on chest x-ray dated 08/19/2025. 4. Cholelithiasis.
--- NOTE | 2025-08-21 13:37 | DVH ---
Bilateral lower extremity venous duplex CLINICAL HISTORY: Rule out DVT COMPARISON: US VENOUS EXTREMITY BILAT on DOS: 06/14/25 TECHNIQUE: Duplex doppler evaluation of the deep venous systems of both lower extremities from the common femoral veins to the popliteal veins including color doppler and spectral/pulsed waveform analysis was performed. FINDINGS: RIGHT SIDE: The common femoral vein demonstrates appropriate compressibility and waveform variability. There is compressibility/patency of the great saphenous vein at the proximal thigh. The deep femoral vein demonstrates appropriate compressibility and waveform variability. Occlusive deep venous thrombus in the mid to distal right femoral vein and in the right popliteal vein. LEFT SIDE: The common femoral vein demonstrates appropriate compressibility and waveform variability. There is compressibility/patency of the great saphenous vein at the proximal thigh. The femoral vein demonstrates appropriate compressibility and waveform variability. The deep femoral vein demonstrates appropriate compressibility and waveform variability. The popliteal vein demonstrates appropriate compressibility and waveform variability. There is normal compressibility at the tibioperoneal trunk. IMPRESSION: 1. Occlusive deep venous thrombus in the mid-distal right femoral vein and right popiteal vein. 2. No evidence of deep venous thrombosis in the left lower extremity. Critical findings discussed with Dr. Rogelio De Jesus by Dr. Kang ness 08/21/2025 01:34 PM.
--- NOTE | 2025-08-21 14:32 | DVH ---
PROCEDURE: MRI CERVICAL WO CONTRAST INDICATION: C-spine myelopathy, subacute combined degeneration EXAM DATE: 08/21/2025 11:28 AM COMPARISON: No comparison studies are available. TECHNIQUE: MRI cervical spine without intravenous contrast. FINDINGS: No fracture or listhesis of the cervical spine. There is slight reversal of normal cervical lordosis. No cerebellar tonsillar ectopia. No abnormal signal in the cervical spinal cord. C2-C3: No significant discopathy, spinal canal stenosis, or neural foraminal stenosis bilaterally. There is right facet hypertrophy. C3-C4: There is disc desiccation without loss of disc height. There is a central disc herniation measuring 4.6 mm AP, with extrusion of disc material cephalad and caudad measuring 12 mm longitudinal (image 8, series 5). The AP dimension of the spinal canal measures 8.8 mm. There is mass effect on the anterior margin of the cervical spinal cord. There is moderate right and no significant left neural foraminal stenosis. C4-C5: There is disc desiccation with loss of disc height. There is a circumferential disc bulge with endplate hypertrophy. There are Modic type 2 changes in the adjacent endplates. There is bilateral uncinate process hypertrophy. No significant facet hypertrophy. The AP dimension of the spinal canal measures 9.7 mm. There is mild mass effect on the anterior margin of the cervical spinal cord at this level. There is moderate to severe bilateral neural foraminal stenosis. C5-C6: There is disc desiccation with loss of disc height. There are mild Modic type 2 changes in the adjacent endplates. There is a circumferential disc bulge with endplate hypertrophy. There is bilateral uncinate process hypertrophy. No significant facet hypertrophy. The AP dimension of the spinal canal measures 8.2 mm. There is mass effect on the anterior margin of the cervical spinal cord at this level. There is moderate to severe right and moderate left neural foraminal stenosis. C6-C7: There is disc desiccation with loss of disc height. Possible vacuum phenomenon in the disc. There are Schmorl's nodes and Modic type 2 changes in the adjacent endplates. There is a circumferential disc bulge with endplate hypertrophy. There is bilateral uncinate process hypertrophy, greater on the right. No significant facet hypertrophy. The AP dimension of the spinal canal measures 8.2 mm. There is moderate bilateral neural foraminal stenosis. IMPRESSION: 1. No fracture of the cervical spine. 2. Advanced cervical degenerative disc disease and facet arthropathy with [id number] spinal canal stenosis at C5-C6 and C6-C7; mild spinal canal stenosis at C3-C4 and C4-C5. There is mass effect on the cervical spinal cord at every disc level C3-C6. Recommend spinal surgery consultation if not already obtained. 3. Multilevel significant neural foraminal stenosis including C3-C4 on the right, C4-C5 bilaterally, C5-C6 bilaterally, and C6-C7 bilaterally. These findings may correspond to upper extremity radicular symptoms in the right C4, bilateral C5, bilateral C6, and bilateral C7 nerve root distributions. 4. Slight reversal of normal cervical lordosis is likely chronic for the patient, less likely due to muscle spasm.
--- NOTE | 2025-08-21 20:31 | DVHPN2 ---
Progress Note - Dictate Date Seen: Aug 21, 2025 Medical Necessity Reason Pt with a Central, PICC or Fol: No Subjective Ms. Yanez is a 70 years old right-handed female with a history of breast cancer, COPD on home oxygen, she came to the [facility] on 08/19/2025 with a chief complaint of general weakness, gait disturbance I have seen and examined the patient, I have talked to her nurse, she is alert, oriented x3, again not a good historian No change on physical examination Urinalysis, 08/19/2025: Unremarkable WBC/HB/PLT/MCV, 08/20/2025: 3.1/12.7/201/97.3 BMP, 08/19/2025: Unremarkable HGB A1c, 08/20/2025: 4.8 Liver function tests, 08/19/2025: Unremarkable Vitamin B12, 08/20/25: 718 Folic acid, 08/20/2025: 2.62 TSH, 08/20/2025: 0.78 FT4, 08/20/2025: 0.75 Extremity venous study, 08/21/2025: 1. Occlusive deep venous thrombus in the mid-distal right femoral vein and right popiteal vein. 2. No evidence of deep venous thrombosis in the left lower extremity. CT head, 08/19/2025: Right posterior frontal lobe suggested area of Chronic infarct. Superimposed acute infarct can not be completely excluded. If there is concern for acute infarct, MRI should be considered for further evalution MRI head, 08/20/2025: No acute intracranial abnormality seen. No evidence for acute infarct. 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 Bilateral cataract extraction MRI C-spine, 08/21/2025: 1. No fracture of the cervical spine. 2. Advanced cervical degenerative disc disease and facet arthropathy with [id number] spinal canal stenosis at C5-C6 and C6-C7; mild spinal canal stenosis at C3-C4 and C4-C5. There is mass effect on the cervical spinal cord at every disc level C3-C6. Recommend spinal surgery consultation if not already obtained. 3. Multilevel significant neural foraminal stenosis including C3-C4 on the right, C4-C5 bilaterally, C5-C6 bilaterally, and C6-C7 bilaterally. These findings may correspond to upper extremity radicular symptoms in the right C4, bilateral C5, bilateral C6, and bilateral C7 nerve root distributions. 4. Slight reversal of normal cervical lordosis is likely chronic for the patient, less likely due to muscle spasm MRI T-spine, 08/21/2025: 1. No fracture of the thoracic spine. 2. Mild thoracic and advanced lower cervical degenerative disc disease. No high-grade spinal canal stenosis at any level in the thoracic spine. 3. Cardiomegaly and bilateral pleural effusions suggestive of CHF. This is better appreciated on chest x-ray dated 08/19/2025. 4. Cholelithiasis. vital signs Vital Sign Date Time Temp Pulse Resp B/P (MAP) Pulse Ox O2 Delivery O2 Flow Rate FiO2 08/21/25 19:58 99 Nasal Cannula 2.0 08/21/25 19:58 28 08/21/25 17:00 97.4 77 16 125/64 (84) 97.4 Total Intake and Output 08/20/25 08/20/25 08/21/25 15:00 23:00 07:00 Intake Total 225 ml Output Total 0 ml Balance 0 ml 225 ml medications Current Medications Medications Dose Ordered Sig/Darci Route Start Time Stop Time Status Last Admin Dose Admin Atorvastatin Calcium 10 mg HS PO 08/20/25 22:00 08/20/25 20:51 10 MG Albuterol 2.5 mg Q6HPRN PRN NEB 08/19/25 22:45 Aspirin 81 mg DAILY PO 08/20/25 10:00 08/21/25 09:48 81 MG Ondansetron HCl 4 mg Q4HP PRN IV 08/19/25 22:45 08/21/25 12:23 4 MG Primidone 125 mg HS PO 08/21/25 22:00 Lorazepam 1 mg ONCE PRN IV 08/20/25 23:00 Enoxaparin Sodium 60 mg Q12HR SC 08/21/25 22:00 objective General: the patient is well developed and nourished. No acute distress. MUSCULOSKELETAL EXAM: Mild tenderness to palpation in the neck MENTAL STATUS: Subjective SPEECH, LANGUAGE, HIGHER CORTICAL FUNCTION: no aphasia or dysathria. CRANIAL NERVES: Pupils are equal, round and reactive. EOMs full and conjugate. No nystagmus. Facial sensation intact in all three divisions bilaterally. Mandibular strength intact. Facial muscles symmetrical and strength intact. SENSATION: Sensation to touch and pinprick is diminished distally in the lower extremities, no sensory level MOTOR: Increased muscle tone in the left arm than leg, questionable increased tone in the right leg. Normal muscle bulk. No fasciculations. No abnormal movements or posturing. Muscle strength of the major groups in the upper extremities is 4/5 with the left-sided weaker. Muscle strength of the major groups in the lower extremities is 4/5. REFLEXES: Deep tendon reflexes: Arms: 3/4 with left-sided stronger, knees: 3/4, ankles: 3-4/4. No pathological reflexes. CEREBELLAR/COORDINATION: Finger to nose fine bilaterally. GAIT/STATION: deferred laboratory and microbiology Laboratory Tests 08/20/25 04:15 Test 08/20/25 04:15 Range/Units Serum Glucose 99 74-106 mg/dL Problem List General weakness Gait disturbance Chronic stroke Cervical spine spondylosis Polyneuropathy "Wobbling leg" Assessment/Plan Monitoring Supportive treatment Med surge Aspirin 81 mg daily Lipitor 10 mg daily Primidone 125 mg HS for now (was b.i.d. at home) Oxygen DVT prophylaxis Up to chair Physical therapy More recommendation per clinical course This medical document was created using an electronic medical record system with [employer] dictation system. Although this document has been carefully reviewed, there may still be some phonetic and typographical errors. These areas are purely typographical due to imperfections of the software programs, and do not reflect any compromise in the patient's medical care. Prognosis poor Plan discussed with: Patient, Other Total Time (mins): 35 SUZAN ROLDAN MD Aug 21, 2025 20:31
[2025-08-21] MEDS: PRIMIDONE 50 MG TAB PO SCH (21:29)
[2025-08-21] MEDS: ENOXAPARIN SOD 60 MG/0.6 ML SYRINGE SC SCH (21:30)
[2025-08-22] VITALS (11 sets, daily range): BP systolic 114–144; BP diastolic 60–76; PULSE 72–85; RESP 16–18; TEMP 97.6–99.3; O2SAT 95–100
--- NOTE | 2025-08-22 10:15 | DVHPN2 ---
Progress Note - Dictate Date Seen: Aug 22, 2025 Medical Necessity Reason Pt with a Central, PICC or Fol: No Subjective Ms. Yanez is a 70 years old right-handed female with a history of breast cancer, COPD on home oxygen, she came to the [facility] on 08/19/2025 with a chief complaint of general weakness, gait disturbance I have seen and examined the patient, I have talked to her nurse, she is alert, oriented x3, again not a good historian No change on physical examination She walked, her gait was slow, but no tremors/shaking noticed Urinalysis, 08/19/2025: Unremarkable WBC/HB/PLT/MCV, 08/20/2025: 3.1/12.7/201/97.3 BMP, 08/19/2025: Unremarkable HGB A1c, 08/20/2025: 4.8 Liver function tests, 08/19/2025: Unremarkable Vitamin B12, 08/20/25: 718 Folic acid, 08/20/2025: 2.62 TSH, 08/20/2025: 0.78 FT4, 08/20/2025: 0.75 Extremity venous study, 08/21/2025: 1. Occlusive deep venous thrombus in the mid-distal right femoral vein and right popiteal vein. 2. No evidence of deep venous thrombosis in the left lower extremity. CT head, 08/19/2025: Right posterior frontal lobe suggested area of Chronic infarct. Superimposed acute infarct can not be completely excluded. If there is concern for acute infarct, MRI should be considered for further evalution MRI head, 08/20/2025: No acute intracranial abnormality seen. No evidence for acute infarct. 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 Bilateral cataract extraction MRI C-spine, 08/21/2025: 1. No fracture of the cervical spine. 2. Advanced cervical degenerative disc disease and facet arthropathy with [id number] spinal canal stenosis at C5-C6 and C6-C7; mild spinal canal stenosis at C3-C4 and C4-C5. There is mass effect on the cervical spinal cord at every disc level C3-C6. Recommend spinal surgery consultation if not already obtained. 3. Multilevel significant neural foraminal stenosis including C3-C4 on the right, C4-C5 bilaterally, C5-C6 bilaterally, and C6-C7 bilaterally. These findings may correspond to upper extremity radicular symptoms in the right C4, bilateral C5, bilateral C6, and bilateral C7 nerve root distributions. 4. Slight reversal of normal cervical lordosis is likely chronic for the patient, less likely due to muscle spasm MRI T-spine, 08/21/2025: 1. No fracture of the thoracic spine. 2. Mild thoracic and advanced lower cervical degenerative disc disease. No high-grade spinal canal stenosis at any level in the thoracic spine. 3. Cardiomegaly and bilateral pleural effusions suggestive of CHF. This is better appreciated on chest x-ray dated 08/19/2025. 4. Cholelithiasis. vital signs Vital Sign Date Time Temp Pulse Resp B/P (MAP) Pulse Ox O2 Delivery O2 Flow Rate FiO2 08/22/25 09:20 98 Nasal Cannula 2.0 08/22/25 09:20 28 08/22/25 09:00 98.2 73 16 124/60 (81) 98.2 Total Intake and Output 08/21/25 08/21/25 08/22/25 15:00 23:00 07:00 Intake Total 1410 ml 600 ml Output Total 800 ml Balance 610 ml 600 ml medications Current Medications Medications Dose Ordered Sig/Darci Route Start Time Stop Time Status Last Admin Dose Admin Atorvastatin Calcium 10 mg HS PO 08/20/25 22:00 08/21/25 21:28 10 MG Albuterol 2.5 mg Q6HPRN PRN NEB 08/19/25 22:45 Aspirin 81 mg DAILY PO 08/20/25 10:00 08/22/25 09:56 81 MG Ondansetron HCl 4 mg Q4HP PRN IV 08/19/25 22:45 08/21/25 12:23 4 MG Primidone 125 mg HS PO 08/21/25 22:00 08/21/25 21:29 125 MG Lorazepam 1 mg ONCE PRN IV 08/20/25 23:00 Enoxaparin Sodium 60 mg Q12HR SC 08/21/25 22:00 08/22/25 09:56 60 MG objective General: the patient is well developed and nourished. No acute distress. MUSCULOSKELETAL EXAM: Mild tenderness to palpation in the neck MENTAL STATUS: Subjective SPEECH, LANGUAGE, HIGHER CORTICAL FUNCTION: no aphasia or dysathria. CRANIAL NERVES: Pupils are equal, round and reactive. EOMs full and conjugate. No nystagmus. Facial sensation intact in all three divisions bilaterally. Mandibular strength intact. Facial muscles symmetrical and strength intact. SENSATION: Sensation to touch and pinprick is diminished distally in the lower extremities, no sensory level MOTOR: Increased muscle tone in the left arm than leg, questionable increased tone in the right leg. Normal muscle bulk. No fasciculations. No abnormal movements or posturing. Muscle strength of the major groups in the upper extremities is 4/5 with the left-sided weaker. Muscle strength of the major groups in the lower extremities is 4/5. REFLEXES: Deep tendon reflexes: Arms: 3/4 with left-sided stronger, knees: 3/4, ankles: 3-4/4. No pathological reflexes. CEREBELLAR/COORDINATION: Finger to nose fine bilaterally. GAIT/STATION: Slow, but no tremors/shaking laboratory and microbiology Laboratory Tests 08/20/25 04:15 Test 08/20/25 04:15 Range/Units Serum Glucose 99 74-106 mg/dL Problem List General weakness Gait disturbance Chronic stroke Cervical spine spondylosis Polyneuropathy "Wobbling leg" Assessment/Plan Monitoring Supportive treatment Med surge Aspirin 81 mg daily Lipitor 10 mg daily Primidone 125 mg HS for now (was b.i.d. at home) Oxygen Lovenox 60 mg subQ b.i.d. Up to chair Physical therapy Orthopedic surgeon More recommendation per clinical course This medical document was created using an electronic medical record system with [employer] dictation system. Although this document has been carefully reviewed, there may still be some phonetic and typographical errors. These areas are purely typographical due to imperfections of the software programs, and do not reflect any compromise in the patient's medical care. Prognosis poor Plan discussed with: Patient, Other SUZAN ROLDAN MD Aug 22, 2025 10:15
--- NOTE | 2025-08-22 10:33 | DVHPN2 ---
Reviewed: Care Plan, H&P, Labs, Medications, Previous Orders, Radiology Changes from previous H/P or p: No Changes Objective Vitals Vital Signs Date Time Temp Pulse Resp B/P (MAP) Pulse Ox O2 Delivery O2 Flow Rate FiO2 08/22/25 09:20 98 Nasal Cannula 2.0 08/22/25 09:20 28 08/22/25 09:00 98.2 73 16 124/60 (81) 98.2 Intake/Output Intake and Output 08/22/25 07:00 Intake Total 2009 ml Output Total 800 ml Balance 1210 ml Intake Oral 2010 ml Output Urine Total 800 ml # Voids 2 Medications Current Medications Medications Dose Ordered Sig/Darci Route Start Time Stop Time Status Last Admin Dose Admin Atorvastatin Calcium 10 mg HS PO 08/20/25 22:00 08/21/25 21:28 10 MG Albuterol 2.5 mg Q6HPRN PRN NEB 08/19/25 22:45 Aspirin 81 mg DAILY PO 08/20/25 10:00 08/22/25 09:56 81 MG Ondansetron HCl 4 mg Q4HP PRN IV 08/19/25 22:45 08/21/25 12:23 4 MG Primidone 125 mg HS PO 08/21/25 22:00 08/21/25 21:29 125 MG Lorazepam 1 mg ONCE PRN IV 08/20/25 23:00 Enoxaparin Sodium 60 mg Q12HR SC 08/21/25 22:00 08/22/25 09:56 60 MG Laboratory Results Laboratory Tests 08/20/25 04:15 Urinalysis Test 08/19/25 16:50 Urine Color Light-yellow (Yellow) Urine Clarity Clear (Clear) Urine pH 6.0 (5.0-9.0) Urine Specific [place] 1.014 (1.001-1.035) Urine Protein Trace (Negative) H Urine Ketones 4+ (Negative) H Urine Blood Negative /uL (Negative) Urine Nitrite Negative (Negative) Urine Bilirubin Negative (Negative) Urine Urobilinogen Normal mg/dL (Negative) Urine Leukocyte Esterase Negative /uL (Negative) Urine RBC 1 /hpf (0 - 4) Urine Microscopic WBC 1 /HPF (0-5) Urine Squamous Epithelial Cells Few /hpf (<5) Urine Bacteria None seen /hpf (None Seen) Urine Glucose Normal mg/dL (Normal) Microbiology Microbiology Date/Time Source Procedure Growth Status 08/19/25 17:15 Blood Blood Culture - Preliminary NO GROWTH AFTER 48 HOURS OF INCUBATION. Resulted 08/19/25 16:50 Voided Urine Urine Culture - Preliminary Resulted Labs and/or images reviewed: Labs reviewed by me, Image(s) reviewed by me Assessment/Plan Assessment/Plan Acute Generalized weakness Acute Hypokalemia potassium 2.9: Replace potassium Elevated troponin, downtrending Neutropenia WBC 2.5 Chronic anemia hemoglobin 11 Acute COPD exacerbation Unsteady gait Chronic stroke Cervical spine myelopathy Chest x-ray negative CT head shows chronic right posterior frontal infarct MRI brain shows chronic right posterior frontal infarct: Consult for Neurology Dr. Tong, primidone 125 mg p.o. HS DVT right lower extremity: Lovenox 1 milligram/kilos subQ b.i.d. Patient lives alone: Social service consult Time spent 60 minutes Advanced care planning time 20 minutes Patient is full code Plan discussed with: Patient My Orders Orders - RACH WU MD Procedure Category Date Status Time Enoxaparin Sodium PHA 08/21/25 In Process (Lovenox) 22:00 Date of Service: Aug 22, 2025 Billing Provider: RACH WU MD Common Visit Codes: [id number] INP/OBS CARE(HIGH) RACH WU MD Aug 22, 2025 10:33
[2025-08-22] MEDS: POLYETHYLENE GLYCOL 17 GM PWDR PO PRN (16:31)
--- NOTE | 2025-08-22 22:37 | DVHINCON2 ---
TAMMY FRIED NP 08/22/25 2237: Consultation - Surgical Date Seen: Aug 22, 2025 Referring Physician Referring Physician Attending Doctor: Rogelio De Jesus MD Reason for Consultation Reason for Visit: Generalized weakness History of Present Illness History of Present Illness History of Present Illness 70-year-old female presents for evaluation of generalized weakness. Patient reports a one-week history of worsening generalized weakness. Patient reports having bilateral lower extremity pain and weakness making it difficult to ambulate. Patient reports living alone and does not have anyone to assist her. Denies unilateral weakness or slurred speech. No cardiac or respiratory complaints. Past Medical/Surgical History Past Medical/Surgical History Past Medical History COPD Past Surgical History Denies Family and Social History Family and Social History Family History Noncontributory Smoke: No ALCOHOL: none Drugs: None Lives: Alone Allergies and medications Allergies: Coded Allergies: Acetaminophen (Verified Allergy, Severe, 08/19/25) Codeine (Verified Allergy, Severe, 08/19/25) Home Meds Reported Medications Omeprazole (Gnp Omeprazole) 20 Mg Tab, 40 MG PO, TAB 08/20/25 Primidone (Primidone) 125 Mg Tab, 1 TAB PO BID 08/20/25 Review of systems Review of Systems: NEURO:Abnormal (patient reports weakness and difficulty ambulating, no hx of spine surgery ) Examination Vital signs Imaging: RDERING PHYSICIAN: SUZAN ROLDAN MD PROCEDURE(s): MNE - CERVICAL WO CONTRAST REASON: C-spine myelopathy, subacute combined degeneration ORDER NUMBER(s): [id number], ACCESSION NUMBER(s): [id number] PROCEDURE: MRI CERVICAL WO CONTRAST INDICATION: C-spine myelopathy, subacute combined degeneration EXAM DATE: 08/21/2025 11:28 AM COMPARISON: No comparison studies are available. TECHNIQUE: MRI cervical spine without intravenous contrast. FINDINGS: No fracture or listhesis of the cervical spine. There is slight reversal of normal cervical lordosis. No cerebellar tonsillar ectopia. No abnormal signal in the cervical spinal cord. C2-C3: No significant discopathy, spinal canal stenosis, or neural foraminal stenosis bilaterally. There is right facet hypertrophy. C3-C4: There is disc desiccation without loss of disc height. There is a central disc herniation measuring 4.6 mm AP, with extrusion of disc material cephalad and caudad measuring 12 mm longitudinal (image 8, series 5). The AP dimension of the spinal canal measures 8.8 mm. There is mass effect on the anterior margin of the cervical spinal cord. There is moderate right and no significant left neural foraminal stenosis. C4-C5: There is disc desiccation with loss of disc height. There is a circumferential disc bulge with endplate hypertrophy. There are Modic type 2 changes in the adjacent endplates. There is bilateral uncinate process hypertrophy. No significant facet hypertrophy. The AP dimension of the spinal canal measures 9.7 mm. There is mild mass effect on the anterior margin of the cervical spinal cord at this level. There is moderate to severe bilateral neural foraminal stenosis. C5-C6: There is disc desiccation with loss of disc height. There are mild Modic type 2 changes in the adjacent endplates. There is a circumferential disc bulge with endplate hypertrophy. There is bilateral uncinate process hypertrophy. No significant facet hypertrophy. The AP dimension of the spinal canal measures 8.2 mm. There is mass effect on the anterior margin of the cervical spinal cord at this level. There is moderate to severe right and moderate left neural foraminal stenosis. C6-C7: There is disc desiccation with loss of disc height. Possible vacuum phenomenon in the disc. There are Schmorl's nodes and Modic type 2 changes in the adjacent endplates. There is a circumferential disc bulge with endplate hypertrophy. There is bilateral uncinate process hypertrophy, greater on the rig ht. No significant facet hypertrophy. The AP dimension of the spinal canal measures 8.2 mm. There is moderate bilateral neural foraminal stenosis. IMPRESSION: 1. No fracture of the cervical spine. 2. Advanced cervical degenerative disc disease and facet arthropathy with [id number] spinal canal stenosis at C5-C6 and C6-C7; mild spinal canal stenosis at C3-C4 and C4-C5. There is mass effect on the cervical spinal cord at every disc level C3-C6. Recommend spinal surgery consultation if not already obtained. 3. Multilevel significant neural foraminal stenosis including C3-C4 on the right, C4-C5 bilaterally, C5-C6 bilaterally, and C6-C7 bilaterally. These findings may correspond to upper extremity radicular symptoms in the right C4, bilateral C5, bilateral C6, and bilateral C7 nerve root distributions. 4. Slight reversal of normal cervical lordosis is likely chronic for the patient, less likely due to muscle spasm. RING PHYSICIAN: SUZAN ROLDAN MD PROCEDURE(s): MST4 - THORACIC SPINE WITHOUT REASON: Combined subacute degeneration ORDER NUMBER(s): [id number], ACCESSION NUMBER(s): [id number] EXAM: MRI THORACIC SPINE WITHOUT HISTORY: Combined subacute degeneration COMPARISON: CT scan of the chest dated 06/14/2025 was not made available on the PACS system for viewing. TECHNIQUE: Multiplanar multisequence noncontrast MR images of the thoracic spine were performed. FINDINGS: No fracture or listhesis are identified in the thoracic spine. There is mild degenerative disc disease without significant spinal canal stenosis at any level in the thoracic spine. No abnormal signal is identified in the thoracic spinal cord. The conus terminates at L1. There is Advanced lower Cervical degenerative disc disease, not fully imaged here. The heart is enlarged. There are bilateral pleural effusions, larger on the right. There is a gallstone in the dependent portion of the gallbladder measuring 2.2 cm (image 59, series 15). IMPRESSION: 1. No fracture of the thoracic spine. 2. Mild thoracic and advanced lower cervical degenerative disc disease. No high- grade spinal canal stenosis at any level in the thoracic spine. 3. Cardiomegaly and bilateral pleural effusions suggestive of CHF. This is better appreciated on chest x-ray dated 08/19/2025. 4. Cholelithiasis. Vital Signs Date Time Temp Pulse Resp B/P (MAP) Pulse Ox O2 Delivery O2 Flow Rate FiO2 08/22/25 21:00 97.9 85 16 144/76 (98) 97 97.9 08/22/25 20:23 Nasal Cannula 2.5 08/22/25 20:23 28 Medications Current Medications Medications (Trade) Dose Ordered Sig/Darci Route PRN Reason Start Time Stop Time Status Last Admin Polyethylene Glycol (Miralax 17GM Powder) 17 gm DAILYPRN PRN PO FOR CONSTIPATION 08/22/25 16:15 08/22/25 16:31 Laboratory Labs Test 08/20/25 19:59 08/20/25 17:58 08/20/25 15:35 08/20/25 14:29 Range/Units Thyroid Stimulating Hormone (TSH) 0.78 0.55-4.78 uIU/mL Hemoglobin A1c 4.8 <5.7 % A1C Vitamin B12 Level 718 211-911 pg/mL Folic Acid 2.62 >5.38 ng/mL Free Thyroxine (T4) Calculated 0.75 L 0.89-1.76 ng/dL Influenza Type A Antigen Negative Negative Influenza Type B Antigen Negative Negative SARS-CoV-2 Antigen (Rapid) Negative NEGATIVE D-Dimer, Quantitative 3.07 H 0.0-0.49 mg/L FEU Test 08/20/25 04:15 08/19/25 19:59 08/19/25 17:05 08/19/25 16:50 Range/Units White Blood Count 3.1 #L 4.4-10.8 10^3/uL Red Blood Count 4.19 4.0-5.20 10^6/uL Hemoglobin 12.7 # 12.2-16.2 g/dL Hematocrit 40.8 # 36.0-46.0 % Mean Corpuscular Volume 97.3 80.0-100.0 fL Mean Corpuscular Hemoglobin 30.2 28.0-32.0 pg Mean Corpuscular Hemoglobin Concent 31.0 L 32.0-36.0 g/dL Red Cell Distribution Width 22.1 H 11.8-14.3 % Platelet Count 201 140-450 10^3/uL Mean Platelet Volume 7.0 6.9-10.8 fL Neutrophils (%) (Auto) 78.3 37.0-80.0 % Lymphocytes (%) (Auto) 14.2 10.0-50.0 % Monocytes (%) (Auto) 6.0 0.0-12.0 % Eosinophils (%) (Auto) 0.6 0.0-7.0 % Basophils (%) (Auto) 0.9 0.0-2.0 % Neutrophils # (Auto) 2.4 1.6-8.6 10 ^3/uL Lymphocytes # (Auto) 0.4 0.4-5.4 10 ^3/uL Monocytes # (Auto) 0.2 0-1.3 10 ^3/uL Eosinophils # (Auto) 0 0-0.8 10 ^3/uL Basophils # (Auto) 0 0-0.2 10 ^3/uL Nucleated Red Blood Cells 0.4 % Sodium Level 142 136-145 mmol/L Potassium Level 3.1 L 3.5-5.1 mmol/L Chloride Level 103 98-107 mmol/L Carbon Dioxide Level 20 20-31 mmol/L Anion Gap 19 H 5-15 Blood Urea Nitrogen 6 L 9-23 mg/dL Creatinine 0.92 0.550-1.02 mg/dL Glomerular Filtration Rate Calc 67 >90 mL/min BUN/Creatinine Ratio 6.5 L 10.0-20.0 Serum Glucose 99 74-106 mg/dL Calcium Level 9.0 8.7-10.4 mg/dL Troponin I High Sensitivity 38 *H </=34 ng/L Lactic Acid Level 0.7 0.4-2.0 mmol/L Total Bilirubin 0.8 0.2-1.0 mg/dL Aspartate Amino Transferase (AST) 24 13-40 U/L Alanine Aminotransferase (ALT) 17 7-40 U/L Alkaline Phosphatase 82 46-116 U/L Total Protein 6.2 5.7-8.2 g/dL Albumin 3.8 3.2-4.8 g/dL Lipase 21 12-53 U/L Urine Color Light-yellow Yellow Urine Clarity Clear Clear Urine pH 6.0 5.0-9.0 Urine Specific [place] 1.014 1.001-1.035 Urine Protein Trace H Negative Urine Ketones 4+ H Negative Urine Blood Negative Negative /uL Urine Nitrite Negative Negative Urine Bilirubin Negative Negative Urine Urobilinogen Normal Negative mg/dL Urine Leukocyte Esterase Negative Negative /uL Urine RBC 1 0 - 4 /hpf Urine Microscopic WBC 1 0-5 /HPF Urine Squamous Epithelial Cells Few <5 /hpf Urine Bacteria None seen None Seen /hpf Urine Glucose Normal Normal mg/dL Microbiology Date/Time Source Procedure Growth Status 08/19/25 17:15 Blood Blood Culture - Preliminary NO GROWTH AFTER 72 HOURS OF INCUBATION. Resulted 08/19/25 16:50 Voided Urine Urine Culture - Final Complete Examination: GENERAL:Normal, HEENT:Normal, NECK:Abnormal (pain), LUNGS:Normal, CVS:Normal, ABDOMEN:Normal, MSK:Abnormal (umnable to ambulate over the past 4 weeks), SKIN:Normal, NEURO:Abnormal (some left hand function loss from o;d CVA, LLE 4/5), :Normal Problem List/Assessment/Plan Problems: (1) Generalized weakness (2) Cervical stenosis of spinal canal (3) Muscle spasms of neck Assessment and Plan Advanced cervical degenerative disc disease and facet arthropathy with [id number] spinal canal stenosis at C5-C6 and C6-C7; mild spinal canal stenosis at C3-C4 and C4-C5. There is mass effect on the cervical spinal cord at every disc level C3-C6. Multilevel significant neural foraminal stenosis including C3-C4 on the right, C4-C5 bilaterally, C5-C6 bilaterally, and C6-C7 bilaterally. These findings may correspond to upper extremity radicular symptoms in the right C4, bilateral C5, bilateral C6, and bilateral C7 nerve root distributions. Continue care and support per admitting team's discretion Physical therapy evaluation, treatment recommendations and safe discharge planning recommendations Effective pain management including muscle relaxers if the patient is complaining of muscle spasms Discussed treatment options with the patient,she is open to surgical intervention, she has been told she would need cervical spine surgery in the past. With medical presentation at this time the patient must be medically and cardiology cleared for surgery. Once cleared we will put her on the surgery schedule pending OR availability Call with questions Daren Fried [facility] Orthopaedic Spine Surgery nurse practitioner For Dr Edenilson Estrada Patient was examined, chart reviewed, labs evaluated, and diagnostic studies and findings analyzed. Case was discussed with Dr. Jalen Estrada who formulated the plan of care. This medical document was created using an electronic medical record system with [employer] dictation system. Although this document has been carefully reviewed, there might still be some phonetic and typographical errors. These areas are purely typographical due to imperfections of the software programs, and do not reflect any compromise in the patient's medical care. Plan discussed with Plan discussed with: Patient, Other (bedside RN) Visit Coding Surgery Date of Service if different f: Aug 22, 2025 Billing Provider: TAMMY FRIED SUPERINTENDENT LAUNDRY Surgery Visit Codes: 35154 - INP CONSULT <55 MIN JALEN ESTRADA MD 08/26/25 1623: Consultation - Surgical Date Seen: Aug 26, 2025 Referring Physician Reason for Consultation severe neck pain radiating down botharms to the hands and legs with balance trouble and frequent falls History of Present Illness History of Present Illness this pleasant lady has a diagnosis of cervical spinal stenosis with severe myelopathy causing frequent falls. She was admitted to the hospital due to inability to walk Allergies and medications Allergies: Coded Allergies: Acetaminophen (Verified Allergy, Severe, 08/19/25) Codeine (Verified Allergy, Severe, 08/19/25) Home Meds Reported Medications Omeprazole (Gnp Omeprazole) 20 Mg Tab, 40 MG PO, TAB 08/20/25 Primidone (Primidone) 125 Mg Tab, 1 TAB PO BID 08/20/25 Review of systems Review of Systems: HEENT:Normal, CVS:Normal, RESPIRATORY:Normal, GI:Normal, :Normal, MSK:Abnormal, NEURO:Abnormal Examination Examination: GENERAL:Normal, HEENT:Normal, NECK:Abnormal, LUNGS:Normal, CVS:Normal, ABDOMEN:Normal, MSK:Abnormal, SKIN:Normal, NEURO:Abnormal, :Normal Problem List/Assessment/Plan Problems: (1) Cervical stenosis of spinal canal (2) Cervical myelopathy with cervical radiculopathy Assessment and Plan I agree with initial consult for discussion of the risks and benefits and to proceed with a cervical 3-6 ACDF with possible C6-7 acdf Plan discussed with Plan discussed with: Patient FARIHATAMMY Weaver NP Aug 22, 2025 22:37 JALEN ESTRADA MD Aug 26, 2025 16:23
[2025-08-23] VITALS (13 sets, daily range): BP systolic 132–154; BP diastolic 72–95; PULSE 73–87; RESP 14–18; TEMP 97.8–98.8; O2SAT 95–100
[2025-08-23] MEDS: ALBUTEROL SULF 2.5 MG/0.5ML(0.5%) NEB SOLN NEB PRN (01:05)
[2025-08-23] MEDS: METHOCARBAMOL 500 MG TAB PO SCH (05:28)
--- NOTE | 2025-08-23 09:33 | DVHPN2 ---
Reviewed: Care Plan, H&P, Labs, Medications, Previous Orders, Radiology Changes from previous H/P or p: No Changes Objective Vitals Vital Signs Date Time Temp Pulse Resp B/P (MAP) Pulse Ox O2 Delivery O2 Flow Rate FiO2 08/23/25 08:00 17 97 Nasal Cannula* 2 28 08/23/25 05:00 97.9 76 132/95 (107) 97.9 Intake/Output Intake and Output 08/23/25 07:00 Intake Total 800 ml Output Total 350 ml Balance 450 ml Intake Oral 800 ml Output Urine Total 350 ml # Voids 4 Medications Current Medications Medications Dose Ordered Sig/Darci Route Start Time Stop Time Status Last Admin Dose Admin Atorvastatin Calcium 10 mg HS PO 08/20/25 22:00 08/22/25 22:52 10 MG Albuterol 2.5 mg Q6HPRN PRN NEB 08/19/25 22:45 08/23/25 01:05 2.5 MG Aspirin 81 mg DAILY PO 08/20/25 10:00 08/22/25 09:56 81 MG Ondansetron HCl 4 mg Q4HP PRN IV 08/19/25 22:45 08/21/25 12:23 4 MG Primidone 125 mg HS PO 08/21/25 22:00 08/22/25 22:50 125 MG Lorazepam 1 mg ONCE PRN IV 08/20/25 23:00 Enoxaparin Sodium 60 mg Q12HR SC 08/21/25 22:00 08/22/25 22:52 60 MG Polyethylene Glycol 17 gm DAILYPRN PRN PO 08/22/25 16:15 08/22/25 16:31 17 GM Methocarbamol 500 mg TID PO 08/23/25 06:00 08/23/25 05:28 500 MG Laboratory Results Laboratory Tests 08/20/25 04:15 Urinalysis Test 08/19/25 16:50 Urine Color Light-yellow (Yellow) Urine Clarity Clear (Clear) Urine pH 6.0 (5.0-9.0) Urine Specific [place] 1.014 (1.001-1.035) Urine Protein Trace (Negative) H Urine Ketones 4+ (Negative) H Urine Blood Negative /uL (Negative) Urine Nitrite Negative (Negative) Urine Bilirubin Negative (Negative) Urine Urobilinogen Normal mg/dL (Negative) Urine Leukocyte Esterase Negative /uL (Negative) Urine RBC 1 /hpf (0 - 4) Urine Microscopic WBC 1 /HPF (0-5) Urine Squamous Epithelial Cells Few /hpf (<5) Urine Bacteria None seen /hpf (None Seen) Urine Glucose Normal mg/dL (Normal) Microbiology Microbiology Date/Time Source Procedure Growth Status 08/19/25 17:15 Blood Blood Culture - Preliminary NO GROWTH AFTER 72 HOURS OF INCUBATION. Resulted 08/19/25 16:50 Voided Urine Urine Culture - Final Complete Labs and/or images reviewed: Labs reviewed by me, Image(s) reviewed by me Assessment/Plan Assessment/Plan Acute Generalized weakness Acute Hypokalemia potassium 2.9: Replace potassium Elevated troponin, downtrending Neutropenia WBC 2.5 Chronic anemia hemoglobin 11 Acute COPD exacerbation Unsteady gait Chronic stroke Cervical radiculopathy: Dr. Estrada planning for C-spine surgery cardiology clearance requested Chest x-ray negative CT head shows chronic right posterior frontal infarct MRI brain shows chronic right posterior frontal infarct: Consult for Neurology Dr. Tong, primidone 125 mg p.o. HS DVT right lower extremity: Lovenox 1 milligram/kilos subQ b.i.d. Patient lives alone: Social service consult Time spent 60 minutes Advanced care planning time 20 minutes Patient is full code Plan discussed with: Patient My Orders Orders - RACH WU MD Procedure Category Date Status Time * Parole Officer CONS 08/22/25 Transmitted Consult Electrocardigram EKG 08/23/25 Logged 09:27 Echo 2d Mode Cardiac US 08/23/25 Logged DOP 09:27 * Cardiology Consult CONS 08/23/25 Transmitted 09:27 Date of Service: Aug 23, 2025 Billing Provider: RACH WU MD Common Visit Codes: [id number] INP/OBS CARE(HIGH) RACH WU MD Aug 23, 2025 09:33
[2025-08-23 11:24] LABS: Hematocrit 26.5 % (36.0-46.0); Mean Corpuscular Volume 93.7 fL (80.0-100.0)
[2025-08-23 11:26] LABS: Hemoglobin 8.6 g/dL (12.2-16.2); Mean Corpuscular Hemoglobin 30.3 pg (28.0-32.0)
[2025-08-23 11:37] LABS: Chloride 102 mmol/L (98-107); Sodium 141 mmol/L (136-145)
[2025-08-23 11:38] LABS: Anion Gap 3 (5-15)
[2025-08-23 11:43] LABS: Magnesium 1.7 mg/dL (1.6-2.6); Triglycerides 89 mg/dL (< 150)
[2025-08-23 11:44] LABS: BUN/Creatinine Ratio 10.9 (10.0-20.0); Blood Urea Nitrogen < 5 mg/dL (9-23); Calcium 8.0 mg/dL (8.7-10.4); Carbon Dioxide 36 mmol/L (20-31); Glucose 126 mg/dL (74-106); Potassium 2.7 mmol/L (3.5-5.1)
[2025-08-23 11:45] LABS: Cholesterol 139 mg/dL (< 200); HDL Cholesterol 59 mg/dL (40-59)
[2025-08-23 12:38] LABS: Nucleated Red Blood Cells % 2.0 %; Total Cells Counted 100.0 (100)
[2025-08-23 12:39] LABS: Anisocytosis Slight
--- NOTE | 2025-08-23 12:45 | DVHINCON2 ---
Date Seen: Aug 23, 2025 Referring Physician MD Neal Reason for Consultation Cardiac risk stratification History of Present Illness This is a 70-year-old female patient who presents to the emergency room with chief complaint of progressive lower extremity weakness. The patient reports that symptoms have progressively gotten worse for approximately one month. She came to the emergency room for further evaluation. Imaging has revealed cervical stenosis of the spinal canal. The orthopedic team is now requesting cardiac risk stratification for possible surgical intervention. Initial twelve lead electrocardiogram found in patient's chart reveals a normal sinus rhythm with nonspecific ST segment changes to inferior leads and baseline wander in multiple leads. Initial troponin level of 40ng/L with down trend thereafter. The patient denies any cardiac symptoms such as chest pain, shortness of breath, palpitations, or dizziness. Significant past medical history includes CVA, breast cancer status post right breast lumpectomy and chemotherapy, COPD with continuous home O2 use, and tobacco use. Past Medical History Past medical history reviewed. No other significant than mentioned above. Past Surgical History Right breast lumpectomy Family History: Patient reports no known family medical history. Family History Family history reviewed. Social History Patient has a 30 pack-year history, currently smokes approximately half a pack per day Denies any illicit drug use Denies any alcohol use Allergies: Coded Allergies: Acetaminophen (Verified Allergy, Severe, 08/19/25) Codeine (Verified Allergy, Severe, 08/19/25) Home Meds Reported Medications Omeprazole (Gnp Omeprazole) 20 Mg Tab, 40 MG PO, TAB 08/20/25 Primidone (Primidone) 125 Mg Tab, 1 TAB PO BID 08/20/25 Home Meds Home medications reviewed. Current Medications Current Medications Medications (Trade) Dose Ordered Sig/Darci Route PRN Reason Start Time Stop Time Status Last Admin Polyethylene Glycol (Miralax 17GM Powder) 17 gm DAILYPRN PRN PO FOR CONSTIPATION 08/22/25 16:15 08/23/25 09:46 Methocarbamol (Robaxin) 500 mg TID PO 08/23/25 06:00 08/23/25 05:28 Review of Systems Constitutional: No symptom reported Ears, Nose, & Throat: No symptom reported Eyes: No symptom reported Neurological: No symptoms reported Pulmonary/Respiratory: No symptoms reported Cardiovascular: No symptom reported Gastrointestinal: No symptom reported Genitourinary: No symptom reported Musculoskeletal: Bilateral lower extremity weakness Skin: No symptom reported Psychiatric: No symptom reported Endocrine: No symptom reported Hematologic/Lymphatic: No symptom reported Vital Signs Vital Signs Date Time Temp Pulse Resp B/P (MAP) Pulse Ox O2 Delivery O2 Flow Rate FiO2 08/23/25 09:00 98.3 74 16 150/79 (102) 96 98.3 08/23/25 08:00 Nasal Cannula* 2 28 Physical Exam General Appearance: Cooperative. Well-developed. Well-nourished. No acute distress. Pulmonary/Respiratory: Clear, bilateral breaths sounds. Cardiovascular/Chest: Regular rate and rhythm. Peripheral Pulses: 2+ Radial (R). 2+ Radial (L). 2+ Pedal (R). 2+ Pedal (L) Abdominal Exam: Normal bowel sounds. Ankle Exam: Negative ankle edema Lower extremities: Negative lower extremity edema Neuro/Mental Status: A/OX4, coherent. Thoughts/Psych: Normal thought pattern. Appropriate mood and affect. Good judgment and insight. Appearance: No acute distress. Skin Exam: Normal inspection. Normal color. Warm and dry. Labs/Diagnostic Data Labs Test 08/23/25 10:58 08/20/25 19:59 08/20/25 17:58 08/20/25 15:35 Range/Units White Blood Count 1.9 #L 4.4-10.8 10^3/uL Red Blood Count 2.83 L 4.0-5.20 10^6/uL Hemoglobin 8.6 #L 12.2-16.2 g/dL Hematocrit 26.5 #L 36.0-46.0 % Mean Corpuscular Volume 93.7 80.0-100.0 fL Mean Corpuscular Hemoglobin 30.3 28.0-32.0 pg Mean Corpuscular Hemoglobin Concent 32.4 32.0-36.0 g/dL Red Cell Distribution Width 21.0 H 11.8-14.3 % Platelet Count 147 140-450 10^3/uL Mean Platelet Volume 6.3 L 6.9-10.8 fL Neutrophils (%) (Auto) 37.0-80.0 % Lymphocytes (%) (Auto) 10.0-50.0 % Monocytes (%) (Auto) 0.0-12.0 % Basophils (%) (Auto) 0.0-2.0 % Neutrophils # (Auto) 1.6-8.6 10 ^3/uL Lymphocytes # (Auto) 0.4-5.4 10 ^3/uL Monocytes # (Auto) 0-1.3 10 ^3/uL Sodium Level 141 136-145 mmol/L Potassium Level 2.7 L 3.5-5.1 mmol/L Chloride Level 102 98-107 mmol/L Carbon Dioxide Level 36 H 20-31 mmol/L Anion Gap 3 L 5-15 Blood Urea Nitrogen < 5 L 9-23 mg/dL Creatinine 0.46 #L 0.550-1.02 mg/dL Glomerular Filtration Rate Calc 102 >90 mL/min BUN/Creatinine Ratio 10.9 10.0-20.0 Serum Glucose 126 H 74-106 mg/dL Calcium Level 8.0 L 8.7-10.4 mg/dL Magnesium Level 1.7 1.6-2.6 mg/dL Triglycerides Level 89 < 150 mg/dL Cholesterol Level 139 < 200 mg/dL LDL Cholesterol 56 < 100 mg/dL HDL Cholesterol 59 40-59 mg/dL Thyroid Stimulating Hormone (TSH) 0.78 0.55-4.78 uIU/mL Hemoglobin A1c 4.8 <5.7 % A1C Vitamin B12 Level 718 211-911 pg/mL Folic Acid 2.62 >5.38 ng/mL Free Thyroxine (T4) Calculated 0.75 L 0.89-1.76 ng/dL Influenza Type A Antigen Negative Negative Influenza Type B Antigen Negative Negative SARS-CoV-2 Antigen (Rapid) Negative NEGATIVE Test 08/20/25 14:29 08/20/25 04:15 08/19/25 19:59 08/19/25 17:05 Range/Units D-Dimer, Quantitative 3.07 H 0.0-0.49 mg/L FEU Eosinophils (%) (Auto) 0.6 0.0-7.0 % Eosinophils # (Auto) 0 0-0.8 10 ^3/uL Basophils # (Auto) 0 0-0.2 10 ^3/uL Nucleated Red Blood Cells 0.4 % Troponin I High Sensitivity 38 *H </=34 ng/L Lactic Acid Level 0.7 0.4-2.0 mmol/L Total Bilirubin 0.8 0.2-1.0 mg/dL Aspartate Amino Transferase (AST) 24 13-40 U/L Alanine Aminotransferase (ALT) 17 7-40 U/L Alkaline Phosphatase 82 46-116 U/L Total Protein 6.2 5.7-8.2 g/dL Albumin 3.8 3.2-4.8 g/dL Lipase 21 12-53 U/L Test 08/19/25 16:50 Range/Units Urine Color Light-yellow Yellow Urine Clarity Clear Clear Urine pH 6.0 5.0-9.0 Urine Specific [place] 1.014 1.001-1.035 Urine Protein Trace H Negative Urine Ketones 4+ H Negative Urine Blood Negative Negative /uL Urine Nitrite Negative Negative Urine Bilirubin Negative Negative Urine Urobilinogen Normal Negative mg/dL Urine Leukocyte Esterase Negative Negative /uL Urine RBC 1 0 - 4 /hpf Urine Microscopic WBC 1 0-5 /HPF Urine Squamous Epithelial Cells Few <5 /hpf Urine Bacteria None seen None Seen /hpf Urine Glucose Normal Normal mg/dL Microbiology Date/Time Source Procedure Growth Status 08/19/25 17:15 Blood Blood Culture - Preliminary NO GROWTH AFTER 72 HOURS OF INCUBATION. Resulted 08/19/25 16:50 Voided Urine Urine Culture - Final Complete Assessment Preprocedural cardiovascular examination Cervical stenosis of spinal canal Occlusive DVT in mid distal right femoral vein and right popliteal vein NSTEMI, likely type II secondary to above COPD with continuous home O2 Hypokalemia History of CVA History of breast cancer status post right breast lumpectomy Tobacco use Plan/Recommendation We will continue with the following plan/recommendations (Dr. Clark): Case discussed with . A transthoracic echocardiogram reveals an LVEF of 65%, RVSP 30 mmHg. Revised Cardiac Risk Index (Jose criteria): 1 point (1.1% risk of major cardiac event).There is no underlying history of congestive heart failure, coronary artery disease, or equivalent of cardiac symptoms. Prior to admission, the patient reports a good functional capacity. Per cardiology standpoint, patient is at an acceptable-risk for moderate-risk surgery. There is no additional cardiac work-up indicated prior to surgery. Thank you for allowing us to participate in this patient's care. Please call if you have any questions or concerns. Critical care time spent: 44 minutes This medical document was created using an electronic medical record system with voice recognition software and computerized dictation system. Although this document has been carefully reviewed, there might still be some phonetic and typographical errors. Occasional wrong-word or ``sound-alike substitutions may have occurred due to the inherent limitations of voice recognition software. These areas are purely typographical due to imperfections of the software programs and do not reflect any compromise in the patient's medical care. Please read the chart carefully and recognize, using context, where these substitutions have occurred. Plan discussed with: Patient NYHA Physical activity limitations: NA Date of Service: Aug 24, 2025 Billing Provider: NERI ARAMBULA Cardiology Common Codes: [id number] INP/OBS CARE (High) Cardiology Consultation Codes: [id number] CONSULT <45MIN NERI ARAMBULA Aug 23, 2025 12:45
[2025-08-23] MEDS: POTASSIUM CHLORIDE 60 MEQ, LIDOCAINE 1% (LOCAL ANESTH.) 6 ML in SODIUM CHL 0.9% 500 ML IV ONE (13:50)
--- NOTE | 2025-08-23 18:34 | DVHPN2 ---
Progress Note - Dictate Date Seen: Aug 23, 2025 Medical Necessity Reason Pt with a Central, PICC or Fol: No Subjective Ms. Yanez is a 70 years old right-handed female with a history of breast cancer, COPD on home oxygen, she came to the [facility] on 08/19[facility]2025 with a chief complaint of general weakness, gait disturbance I have seen and examined the patient, I have talked to her nurse, she is alert, oriented x3, again not a good historian No change on physical examination, she has bilateral ankle clonus today Orthopedic surgeon input appreciated Urinalysis, 08/19/2025: Unremarkable WBC/HB/PLT/MCV, 08/20/2025: 3.1/12.7/201/97.3 BMP, 08/19/2025: Unremarkable HGB A1c, 08/20/2025: 4.8 Liver function tests, 08/19/2025: Unremarkable Vitamin B12, 08/20/25: 718 Folic acid, 08/20/2025: 2.62 TSH, 08/20/2025: 0.78 FT4, 08/20/2025: 0.75 Extremity venous study, 08/21/2025: 1. Occlusive deep venous thrombus in the mid-distal right femoral vein and right popiteal vein. 2. No evidence of deep venous thrombosis in the left lower extremity. CT head, 08/19/2025: Right posterior frontal lobe suggested area of Chronic infarct. Superimposed acute infarct can not be completely excluded. If there is concern for acute infarct, MRI should be considered for further evalution MRI head, 08/20/2025: No acute intracranial abnormality seen. No evidence for acute infarct. 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 Bilateral cataract extraction MRI C-spine, 08/21/2025: 1. No fracture of the cervical spine. 2. Advanced cervical degenerative disc disease and facet arthropathy with [id number] spinal canal stenosis at C5-C6 and C6-C7; mild spinal canal stenosis at C3-C4 and C4-C5. There is mass effect on the cervical spinal cord at every disc level C3-C6. Recommend spinal surgery consultation if not already obtained. 3. Multilevel significant neural foraminal stenosis including C3-C4 on the right, C4-C5 bilaterally, C5-C6 bilaterally, and C6-C7 bilaterally. These findings may correspond to upper extremity radicular symptoms in the right C4, bilateral C5, bilateral C6, and bilateral C7 nerve root distributions. 4. Slight reversal of normal cervical lordosis is likely chronic for the patient, less likely due to muscle spasm MRI T-spine, 08/21/2025: 1. No fracture of the thoracic spine. 2. Mild thoracic and advanced lower cervical degenerative disc disease. No high-grade spinal canal stenosis at any level in the thoracic spine. 3. Cardiomegaly and bilateral pleural effusions suggestive of CHF. This is better appreciated on chest x-ray dated 08/19/2025. 4. Cholelithiasis. vital signs Vital Sign Date Time Temp Pulse Resp B/P (MAP) Pulse Ox O2 Delivery O2 Flow Rate FiO2 08/23/25 17:00 98.1 74 16 149/81 (103) 98 98.1 08/23/25 10:35 Nasal Cannula* 2 28 Total Intake and Output 08/22/25 08/22/25 08/23/25 15:00 23:00 07:00 Intake Total 400 ml 150 ml 250 ml Output Total 350 ml Balance 400 ml -200 ml 250 ml medications Current Medications Medications Dose Ordered Sig/Darci Route Start Time Stop Time Status Last Admin Dose Admin Atorvastatin Calcium 10 mg HS PO 08/20/25 22:00 08/22/25 22:52 10 MG Albuterol 2.5 mg Q6HPRN PRN NEB 08/19/25 22:45 08/23/25 01:05 2.5 MG Aspirin 81 mg DAILY PO 08/20/25 10:00 08/23/25 09:47 81 MG Ondansetron HCl 4 mg Q4HP PRN IV 08/19/25 22:45 08/21/25 12:23 4 MG Primidone 125 mg HS PO 08/21/25 22:00 08/22/25 22:50 125 MG Lorazepam 1 mg ONCE PRN IV 08/20/25 23:00 Enoxaparin Sodium 60 mg Q12HR SC 08/21/25 22:00 08/23/25 09:47 60 MG Polyethylene Glycol 17 gm DAILYPRN PRN PO 08/22/25 16:15 08/23/25 09:46 17 GM Methocarbamol 500 mg TID PO 08/23/25 06:00 08/23/25 13:46 500 MG objective General: the patient is well developed and nourished. No acute distress. MUSCULOSKELETAL EXAM: Mild tenderness to palpation in the neck MENTAL STATUS: Subjective SPEECH, LANGUAGE, HIGHER CORTICAL FUNCTION: no aphasia or dysathria. CRANIAL NERVES: Pupils are equal, round and reactive. EOMs full and conjugate. No nystagmus. Facial sensation intact in all three divisions bilaterally. Mandibular strength intact. Facial muscles symmetrical and strength intact. SENSATION: Sensation to touch and pinprick is diminished distally in the lower extremities, no sensory level MOTOR: Increased muscle tone in the left arm than leg, questionable increased tone in the right leg. Normal muscle bulk. No fasciculations. No abnormal movements or posturing. Muscle strength of the major groups in the upper extremities is 4/5 with the left-sided weaker. Muscle strength of the major groups in the lower extremities is 4/5. REFLEXES: Deep tendon reflexes: Arms: 3/4 with left-sided stronger, knees: 3/4, ankles: 4/4. No pathological reflexes. CEREBELLAR/COORDINATION: Finger to nose fine bilaterally. GAIT/STATION: Slow, but no tremors/shaking laboratory and microbiology Laboratory Tests 08/23/25 10:58 Test 08/23/25 10:58 Range/Units Serum Glucose 126 H 74-106 mg/dL Problem List General weakness Gait disturbance Chronic stroke Cervical spine spondylosis Polyneuropathy "Wobbling leg" Hyperreflexia Deep venous thrombosis Assessment/Plan Monitoring Supportive treatment Med surge Aspirin 81 mg daily Lipitor 10 mg daily Reduce the Primidone to 100mg HS (was 125mg b.i.d. at home) Oxygen Lovenox 60 mg subQ b.i.d. Up to chair Physical therapy Orthopedic surgeon More recommendation per clinical course This medical document was created using an electronic medical record system with [employer] dictation system. Although this document has been carefully reviewed, there may still be some phonetic and typographical errors. These areas are purely typographical due to imperfections of the software programs, and do not reflect any compromise in the patient's medical care. Prognosis poor Plan discussed with: Patient, Other SUZAN ROLDAN MD Aug 23, 2025 18:34
--- NOTE | 2025-08-23 21:16 | DVHSR ---
APPROVED REPORT EXAM: Two-dimensional and M-mode echocardiogram with Doppler and color Doppler. Blood Pressure: 150/79 mmHg INDICATION Pre-Op RISK FACTORS Height: 63, Weight: 130 DIMENSIONS LVDd 4.4 (3.8-5.7cm) LA (2D) 4.1 (1.9-4.0cm) Aortic Root 3.6 (2.0-3.7cm) LVDs 2.8 (2.5-4.0cm) LA (MM) (1.9-4.0cm) Aortic Cusp Exc 1.8 (1.5-2.0cm) EF (%) 67.0 (55-70%) Rt. Atrium 4.0 (1.9-4.0cm) Asc. Aorta cm IVSd 1.3 (0.7-1.1cm) RV (D) (1.8-2.4cm) PWd 1.2 (0.7-1.1cm) Mitral Valve Mitral Mitral Stenosis E wave 1.02m/s MV Mean GR. mmHg A wave 1.10m/s MV Peak GR. mmHg E/A ratio 0.9 2D MVA cm2 DECEL Time 217ms PRESS 1/2 Time 64ms IVRT ms Dop MVA 3.44cm2 Aortic Valve Aortic Valve Aortic Stenosis V1 1.47m/s AO Mean GR. 5mmHg V2 1.61m/s AO Peak GR. 10mmHg LVOT Diameter 1.7 (1.8-2.4cm) Doppler SHANIQUA 2.07cm2 Tricuspid Valve TR Velocity 2.84m/s RVSP 38mmHg Conclusion MODERATELY DILATED RV AND RA MILD PULMONARY HYPERTENSION RVSP IS 38 MM OF HG AND IS HIGH NORMAL LV EF AND IS 65% NORMAL VALVES NO EFFUSION
[2025-08-23] MEDS: PRIMIDONE 50 MG TAB PO SCH (22:40)
--- NOTE | 2025-08-23 23:30 | DVHINCON2 ---
Date Seen: Aug 23, 2025 Referring Physician MD Neal Reason for Consultation Cardiac risk stratification History of Present Illness This is a 70-year-old female with a past medical history of CVA, breast cancer status post right breast lumpectomy and chemotherapy, COPD with continuous home O2 use, and tobacco use who presents to the emergency room with chief complaint of progressive lower extremity weakness. The patient reports that symptoms have progressively gotten worse for approximately one month. She came to the emergency room for further evaluation. Imaging has revealed cervical stenosis of the spinal canal. Initial twelve lead electrocardiogram found in patient's chart reveals a normal sinus rhythm with nonspecific ST segment changes to inferior leads and baseline wander in multiple leads. Initial troponin level of 40ng/L with down trend thereafter. The patient denies any cardiac symptoms such as chest pain, shortness of breath, palpitations, or dizziness. The orthopedic team is now requesting cardiac risk stratification for possible surgical intervention. Past Medical History Past medical history reviewed. No other significant than mentioned above. Past Surgical History Right breast lumpectomy Family History: Patient reports no known family medical history. Allergies: Coded Allergies: Acetaminophen (Verified Allergy, Severe, 08/19/25) Codeine (Verified Allergy, Severe, 08/19/25) Home Meds Reported Medications Omeprazole (Gnp Omeprazole) 20 Mg Tab, 40 MG PO, TAB 08/20/25 Primidone (Primidone) 125 Mg Tab, 1 TAB PO BID 08/20/25 Current Medications Current Medications Medications (Trade) Dose Ordered Sig/Darci Route PRN Reason Start Time Stop Time Status Last Admin Polyethylene Glycol (Miralax 17GM Powder) 17 gm DAILYPRN PRN PO FOR CONSTIPATION 08/22/25 16:15 08/23/25 09:46 Methocarbamol (Robaxin) 500 mg TID PO 08/23/25 06:00 08/23/25 05:28 Review of Systems Constitutional: No symptom reported Ears, Nose, & Throat: No symptom reported Eyes: No symptom reported Neurological: No symptoms reported Pulmonary/Respiratory: No symptoms reported Cardiovascular: No symptom reported Gastrointestinal: No symptom reported Genitourinary: No symptom reported Musculoskeletal: Bilateral lower extremity weakness Skin: No symptom reported Psychiatric: No symptom reported Endocrine: No symptom reported Hematologic/Lymphatic: No symptom reported Vital Signs Vital Signs Date Time Temp Pulse Resp B/P (MAP) Pulse Ox O2 Delivery O2 Flow Rate FiO2 08/23/25 09:00 98.3 74 16 150/79 (102) 96 98.3 08/23/25 08:00 Nasal Cannula* 2 28 Physical Exam GENERAL: Alert and oriented x 3. No acute distress. EYES: PERRL, EOMI. Anicteric. HENT: Moist mucous membranes. LUNGS: Clear to auscultation bilaterally. CARDIOVASCULAR: Regular rate and rhythm. ABDOMEN: Soft, nontender and nondistended. EXTREMITIES: No edema. NEUROLOGIC: No focal neurological deficits. SKIN: Warm, dry. Labs/Diagnostic Data Labs Test 08/23/25 10:58 08/20/25 19:59 08/20/25 17:58 08/20/25 15:35 Range/Units White Blood Count 1.9 #L 4.4-10.8 10^3/uL Red Blood Count 2.83 L 4.0-5.20 10^6/uL Hemoglobin 8.6 #L 12.2-16.2 g/dL Hematocrit 26.5 #L 36.0-46.0 % Mean Corpuscular Volume 93.7 80.0-100.0 fL Mean Corpuscular Hemoglobin 30.3 28.0-32.0 pg Mean Corpuscular Hemoglobin Concent 32.4 32.0-36.0 g/dL Red Cell Distribution Width 21.0 H 11.8-14.3 % Platelet Count 147 140-450 10^3/uL Mean Platelet Volume 6.3 L 6.9-10.8 fL Neutrophils (%) (Auto) 37.0-80.0 % Lymphocytes (%) (Auto) 10.0-50.0 % Monocytes (%) (Auto) 0.0-12.0 % Basophils (%) (Auto) 0.0-2.0 % Neutrophils # (Auto) 1.6-8.6 10 ^3/uL Lymphocytes # (Auto) 0.4-5.4 10 ^3/uL Monocytes # (Auto) 0-1.3 10 ^3/uL Differential Total Cells Counted 100.0 100 Neutrophils % (Manual) 62 37.0-80.0 Band Neutrophils % (Manual) 0 Lymphocytes % (Manual) 24 10.0-50.0 Monocytes % (Manual) 12 0-12 Eosinophils % (Manual) 2 0-7 Basophils % (Manual) 0 0.0-2.0 Metamyelocytes % (manual) 0 Myelocytes % (Manual) 0 Promyelocytes % (Manual) 0 Blast Cells % (Manual) 0 Nucleated Red Blood Cells 2.0 % Reactive Lymphocytes 0 Platelet Estimate Adequate Anisocytosis (manual) Slight Sodium Level 141 136-145 mmol/L Potassium Level 2.7 L 3.5-5.1 mmol/L Chloride Level 102 98-107 mmol/L Carbon Dioxide Level 36 H 20-31 mmol/L Anion Gap 3 L 5-15 Blood Urea Nitrogen < 5 L 9-23 mg/dL Creatinine 0.46 #L 0.550-1.02 mg/dL Glomerular Filtration Rate Calc 102 >90 mL/min BUN/Creatinine Ratio 10.9 10.0-20.0 Serum Glucose 126 H 74-106 mg/dL Calcium Level 8.0 L 8.7-10.4 mg/dL Magnesium Level 1.7 1.6-2.6 mg/dL Triglycerides Level 89 < 150 mg/dL Cholesterol Level 139 < 200 mg/dL LDL Cholesterol 56 < 100 mg/dL HDL Cholesterol 59 40-59 mg/dL Thyroid Stimulating Hormone (TSH) 0.78 0.55-4.78 uIU/mL Hemoglobin A1c 4.8 <5.7 % A1C Vitamin B12 Level 718 211-911 pg/mL Folic Acid 2.62 >5.38 ng/mL Free Thyroxine (T4) Calculated 0.75 L 0.89-1.76 ng/dL Influenza Type A Antigen Negative Negative Influenza Type B Antigen Negative Negative SARS-CoV-2 Antigen (Rapid) Negative NEGATIVE Test 08/20/25 14:29 08/20/25 04:15 08/19/25 19:59 08/19/25 17:05 Range/Units D-Dimer, Quantitative 3.07 H 0.0-0.49 mg/L FEU Eosinophils (%) (Auto) 0.6 0.0-7.0 % Eosinophils # (Auto) 0 0-0.8 10 ^3/uL Basophils # (Auto) 0 0-0.2 10 ^3/uL Troponin I High Sensitivity 38 *H </=34 ng/L Lactic Acid Level 0.7 0.4-2.0 mmol/L Total Bilirubin 0.8 0.2-1.0 mg/dL Aspartate Amino Transferase (AST) 24 13-40 U/L Alanine Aminotransferase (ALT) 17 7-40 U/L Alkaline Phosphatase 82 46-116 U/L Total Protein 6.2 5.7-8.2 g/dL Albumin 3.8 3.2-4.8 g/dL Lipase 21 12-53 U/L Test 08/19/25 16:50 Range/Units Urine Color Light-yellow Yellow Urine Clarity Clear Clear Urine pH 6.0 5.0-9.0 Urine Specific [place] 1.014 1.001-1.035 Urine Protein Trace H Negative Urine Ketones 4+ H Negative Urine Blood Negative Negative /uL Urine Nitrite Negative Negative Urine Bilirubin Negative Negative Urine Urobilinogen Normal Negative mg/dL Urine Leukocyte Esterase Negative Negative /uL Urine RBC 1 0 - 4 /hpf Urine Microscopic WBC 1 0-5 /HPF Urine Squamous Epithelial Cells Few <5 /hpf Urine Bacteria None seen None Seen /hpf Urine Glucose Normal Normal mg/dL Microbiology Date/Time Source Procedure Growth Status 08/19/25 17:15 Blood Blood Culture - Preliminary NO GROWTH AFTER 72 HOURS OF INCUBATION. Resulted 08/19/25 16:50 Voided Urine Urine Culture - Final Complete Assessment Preprocedural cardiovascular examination. Cervical stenosis of spinal canal. Occlusive DVT in mid distal right femoral vein and right popliteal vein. COPD with continuous home O2. Hypokalemia. History of CVA. History of breast cancer status post right breast lumpectomy. Tobacco use. Plan/Recommendation I agree with your ongoing assessment and care of plan. Patient has been seen by Viri Wick NP on my behalf, her and I discussed the plan with the patient. A transthoracic echocardiogram reveals an EF of 65%. There is no underlying history of congestive heart failure, coronary artery disease, equivalent of cardiac symptoms, and has a good functional capacity. Per cardiology standpoint, patient is at an acceptable-risk for moderate-risk surgery. There is no additional cardiac work-up indicated prior to surgery. Additional plan as per the hospital course. Plan discussed with: Patient NYHA Physical activity limitations: NA Date of Service: Aug 23, 2025 Billing Provider: DORIAN LARSEN MD Cardiology Common Codes: [id number] INP/OBS CARE (High) Cardiology Consultation Codes: [id number] CONSULT <45MIN DORIAN LARSEN MD Aug 23, 2025 13:24
[2025-08-24] VITALS (11 sets, daily range): BP systolic 104–147; BP diastolic 55–96; PULSE 74–98; RESP 14–19; TEMP 96.8–98.7; O2SAT 92–99
[2025-08-24 07:11] LABS: Hematocrit 27.5 % (36.0-46.0); Hemoglobin 9.0 g/dL (12.2-16.2); Mean Corpuscular Hemoglobin 30.9 pg (28.0-32.0); Mean Corpuscular Volume 94.2 fL (80.0-100.0)
[2025-08-24 07:24] LABS: Anion Gap 6 (5-15); Chloride 104 mmol/L (98-107); Sodium 143 mmol/L (136-145)
[2025-08-24 07:29] LABS: Calcium 8.1 mg/dL (8.7-10.4); Carbon Dioxide 33 mmol/L (20-31); Potassium 3.2 mmol/L (3.5-5.1)
[2025-08-24 07:30] LABS: Glucose 82 mg/dL (74-106)
[2025-08-24 07:31] LABS: BUN/Creatinine Ratio 13.2 (10.0-20.0); Blood Urea Nitrogen < 5 mg/dL (9-23)
[2025-08-24 08:52] LABS: Total Cells Counted 100.0 (100)
[2025-08-24] MEDS: ASPirin-EC 81 mg tab PO SCH (09:31)
--- NOTE | 2025-08-24 09:44 | DVHPN2 ---
Reviewed: Care Plan, H&P, Labs, Medications, Previous Orders, Radiology Changes from previous H/P or p: No Changes Objective Vitals Vital Signs Date Time Temp Pulse Resp B/P (MAP) Pulse Ox O2 Delivery O2 Flow Rate FiO2 08/24/25 09:32 99 Nasal Cannula 2.0 08/24/25 09:32 28 08/24/25 08:00 17 08/24/25 05:00 98.0 74 115/62 (79) 98.0 Intake/Output Intake and Output 08/24/25 07:00 Intake Total 1150 ml Output Total 2200 ml Balance -1050 ml Intake Oral 1150 ml Output Urine Total 2200 ml Stool Total 0 ml Medications Current Medications Medications Dose Ordered Sig/Darci Route Start Time Stop Time Status Last Admin Dose Admin Atorvastatin Calcium 10 mg HS PO 08/20/25 22:00 08/23/25 22:41 10 MG Albuterol 2.5 mg Q6HPRN PRN NEB 08/19/25 22:45 08/23/25 01:05 2.5 MG Ondansetron HCl 4 mg Q4HP PRN IV 08/19/25 22:45 08/21/25 12:23 4 MG Lorazepam 1 mg ONCE PRN IV 08/20/25 23:00 Enoxaparin Sodium 60 mg Q12HR SC 08/21/25 22:00 08/24/25 09:30 60 MG Polyethylene Glycol 17 gm DAILYPRN PRN PO 08/22/25 16:15 08/23/25 09:46 17 GM Methocarbamol 500 mg TID PO 08/23/25 06:00 08/24/25 05:28 500 MG Primidone 100 mg HS PO 08/23/25 22:00 08/23/25 22:40 100 MG Aspirin 81 mg DAILY PO 08/24/25 10:00 08/24/25 09:31 81 MG Laboratory Results Laboratory Tests 08/24/25 05:21 Chemistry Test 08/23/25 10:58 08/24/25 05:21 Calcium Level 8.0 mg/dL (8.7-10.4) L 8.1 mg/dL (8.7-10.4) L Magnesium Level 1.7 mg/dL (1.6-2.6) Lipid panel Test 08/23/25 10:58 Cholesterol Level 139 mg/dL (< 200) HDL Cholesterol 59 mg/dL (40-59) Triglycerides Level 89 mg/dL (< 150) Urinalysis Test 08/19/25 16:50 Urine Color Light-yellow (Yellow) Urine Clarity Clear (Clear) Urine pH 6.0 (5.0-9.0) Urine Specific [place] 1.014 (1.001-1.035) Urine Protein Trace (Negative) H Urine Ketones 4+ (Negative) H Urine Blood Negative /uL (Negative) Urine Nitrite Negative (Negative) Urine Bilirubin Negative (Negative) Urine Urobilinogen Normal mg/dL (Negative) Urine Leukocyte Esterase Negative /uL (Negative) Urine RBC 1 /hpf (0 - 4) Urine Microscopic WBC 1 /HPF (0-5) Urine Squamous Epithelial Cells Few /hpf (<5) Urine Bacteria None seen /hpf (None Seen) Urine Glucose Normal mg/dL (Normal) Microbiology Microbiology Date/Time Source Procedure Growth Status 08/19/25 17:15 Blood Blood Culture - Preliminary NO GROWTH AFTER 72 HOURS OF INCUBATION. Resulted 08/19/25 16:50 Voided Urine Urine Culture - Final Complete Labs and/or images reviewed: Labs reviewed by me, Image(s) reviewed by me Assessment/Plan Assessment/Plan Acute Generalized weakness Acute Hypokalemia potassium 2.9: Replace potassium Elevated troponin, downtrending Neutropenia WBC 2.5 Chronic anemia hemoglobin 11 Acute COPD exacerbation Unsteady gait Chronic stroke Cervical radiculopathy: Dr. Estrada planning for C-spine surgery on 08/27/2025Tuesday, cardiology Dr. Meg Clark cleared for surgery Chest x-ray negative CT head shows chronic right posterior frontal infarct MRI brain shows chronic right posterior frontal infarct: Consult for Neurology Dr. Tong, primidone 125 mg p.o. HS DVT right lower extremity: Lovenox 1 milligram/kilos subQ b.i.d. Patient lives alone: Social service consult Time spent 60 minutes Advanced care planning time 20 minutes Patient is full code Plan discussed with: Patient Date of Service: Aug 24, 2025 Billing Provider: RACH WU MD Common Visit Codes: [id number] INP/OBS CARE(HIGH) RACH WU MD Aug 24, 2025 09:44
--- NOTE | 2025-08-24 10:42 | ECG ---
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
[2025-08-24] MEDS: POTASSIUM EFFERVESENT TAB 25 MEQ PO ONE (14:26)
--- NOTE | 2025-08-24 22:43 | DVHPN2 ---
Progress Note - Dictate Date Seen: Aug 24, 2025 Medical Necessity Reason Pt with a Central, PICC or Fol: No Subjective Patient was seen and evaluated in follow up. Dr. Estrada planning for C-spine surgery on 08/27/2025Tuesday. Patient is cardiac cleared for surgery. WBC 1.9, HGB 9, HCT 27.5, K 3.2, CO2 33, CA 8.1. vital signs Vital Sign Date Time Temp Pulse Resp B/P (MAP) Pulse Ox O2 Delivery O2 Flow Rate FiO2 08/24/25 20:19 97 Nasal Cannula 2.0 08/24/25 20:19 28 08/24/25 17:00 96.8 75 17 124/64 (84) 96.8 Total Intake and Output 08/23/25 08/23/25 08/24/25 15:00 23:00 07:00 Intake Total 550 ml 200 ml 400 ml Output Total 950 ml 1250 ml Balance 550 ml -750 ml -850 ml medications Current Medications Medications Dose Ordered Sig/Darci Route Start Time Stop Time Status Last Admin Dose Admin Atorvastatin Calcium 10 mg HS PO 08/20/25 22:00 08/23/25 22:41 10 MG Albuterol 2.5 mg Q6HPRN PRN NEB 08/19/25 22:45 08/23/25 01:05 2.5 MG Ondansetron HCl 4 mg Q4HP PRN IV 08/19/25 22:45 08/21/25 12:23 4 MG Lorazepam 1 mg ONCE PRN IV 08/20/25 23:00 Enoxaparin Sodium 60 mg Q12HR SC 08/21/25 22:00 08/24/25 09:30 60 MG Polyethylene Glycol 17 gm DAILYPRN PRN PO 08/22/25 16:15 08/23/25 09:46 17 GM Methocarbamol 500 mg TID PO 08/23/25 06:00 08/24/25 14:26 500 MG Primidone 100 mg HS PO 08/23/25 22:00 08/23/25 22:40 100 MG Aspirin 81 mg DAILY PO 08/24/25 10:00 08/24/25 09:31 81 MG objective GENERAL: Alert and oriented x 3. No acute distress. EYES: PERRL, EOMI. Anicteric. HENT: Moist mucous membranes. LUNGS: Clear to auscultation bilaterally. CARDIOVASCULAR: Regular rate and rhythm. ABDOMEN: Soft, nontender and nondistended. EXTREMITIES: No edema. NEUROLOGIC: No focal neurological deficits. SKIN: Warm, dry. laboratory and microbiology Laboratory Tests 08/24/25 05:21 Test 08/24/25 05:21 Range/Units Serum Glucose 82 74-106 mg/dL Problem List Preprocedural cardiovascular examination. Cervical stenosis of spinal canal. Occlusive DVT in mid distal right femoral vein and right popliteal vein. COPD with continuous home O2. Hypokalemia. History of CVA. History of breast cancer status post right breast lumpectomy. Tobacco use. Assessment/Plan Continued all current supportive medical care. Aspirin, Lipitor. DVT prophylactics. Additional plan as per the hospital course. Plan discussed with: Patient DORIAN LARSEN MD Aug 24, 2025 21:11
[2025-08-25] VITALS (10 sets, daily range): BP systolic 93–149; BP diastolic 52–73; PULSE 69–77; RESP 16–20; TEMP 96.9–98.3; O2SAT 91–100
--- NOTE | 2025-08-25 09:22 | DVHPN2 ---
Reviewed: Care Plan, H&P, Labs, Medications, Previous Orders, Radiology Changes from previous H/P or p: No Changes Objective Vitals Vital Signs Date Time Temp Pulse Resp B/P (MAP) Pulse Ox O2 Delivery O2 Flow Rate FiO2 08/25/25 07:35 97 Nasal Cannula 3.0 08/25/25 07:35 32 08/25/25 05:00 97.0 75 18 120/65 (83) 97.0 Intake/Output Intake and Output 08/25/25 07:00 Intake Total 700 ml Output Total 400 ml Balance 300 ml Intake Oral 700 ml Output Urine Total 400 ml # Bowel Movements 1 Medications Current Medications Medications Dose Ordered Sig/Darci Route Start Time Stop Time Status Last Admin Dose Admin Atorvastatin Calcium 10 mg HS PO 08/20/25 22:00 08/24/25 22:40 10 MG Albuterol 2.5 mg Q6HPRN PRN NEB 08/19/25 22:45 08/23/25 01:05 2.5 MG Ondansetron HCl 4 mg Q4HP PRN IV 08/19/25 22:45 08/21/25 12:23 4 MG Lorazepam 1 mg ONCE PRN IV 08/20/25 23:00 Enoxaparin Sodium 60 mg Q12HR SC 08/21/25 22:00 08/25/25 08:45 60 MG Polyethylene Glycol 17 gm DAILYPRN PRN PO 08/22/25 16:15 08/23/25 09:46 17 GM Methocarbamol 500 mg TID PO 08/23/25 06:00 08/25/25 05:33 500 MG Primidone 100 mg HS PO 08/23/25 22:00 08/24/25 22:41 100 MG Aspirin 81 mg DAILY PO 08/24/25 10:00 08/25/25 08:44 81 MG Laboratory Results Laboratory Tests 08/24/25 05:21 Urinalysis Test 08/19/25 16:50 Urine Color Light-yellow (Yellow) Urine Clarity Clear (Clear) Urine pH 6.0 (5.0-9.0) Urine Specific [place] 1.014 (1.001-1.035) Urine Protein Trace (Negative) H Urine Ketones 4+ (Negative) H Urine Blood Negative /uL (Negative) Urine Nitrite Negative (Negative) Urine Bilirubin Negative (Negative) Urine Urobilinogen Normal mg/dL (Negative) Urine Leukocyte Esterase Negative /uL (Negative) Urine RBC 1 /hpf (0 - 4) Urine Microscopic WBC 1 /HPF (0-5) Urine Squamous Epithelial Cells Few /hpf (<5) Urine Bacteria None seen /hpf (None Seen) Urine Glucose Normal mg/dL (Normal) Microbiology Microbiology Date/Time Source Procedure Growth Status 08/19/25 17:15 Blood Blood Culture - Final NO GROWTH AFTER 5 DAYS OF INCUBATION. Complete 08/19/25 16:50 Voided Urine Urine Culture - Final Complete Labs and/or images reviewed: Labs reviewed by me, Image(s) reviewed by me Assessment/Plan Assessment/Plan Acute Generalized weakness Acute Hypokalemia potassium 2.9: Replace potassium Elevated troponin, downtrending Neutropenia WBC 2.5 Chronic anemia hemoglobin 11 Acute COPD exacerbation Unsteady gait Chronic stroke Cervical radiculopathy: Dr. Estrada planning for C-spine surgery on 08/27/2025Tuesday, cardiology Dr. Meg Clark cleared for surgery Chest x-ray negative CT head shows chronic right posterior frontal infarct MRI brain shows chronic right posterior frontal infarct: Consult for Neurology Dr. Tong, primidone 125 mg p.o. HS DVT right lower extremity: Lovenox 1 milligram/kilos subQ b.i.d. Patient lives alone: Social service consult Time spent 46 minutes Advanced care planning time 20 minutes Patient is full code Plan discussed with: Patient Date of Service: Aug 25, 2025 Billing Provider: RACH WU MD Common Visit Codes: [id number] INP/OBS CARE(HIGH) RACH WU MD Aug 25, 2025 09:22
--- NOTE | 2025-08-25 19:19 | DVHPN2 ---
Progress Note - Dictate Date Seen: Aug 25, 2025 Medical Necessity Reason Pt with a Central, PICC or Fol: No Subjective Patient was seen and evaluated in follow up. No overnight events. Patient denies any current complaints. vital signs Vital Sign Date Time Temp Pulse Resp B/P (MAP) Pulse Ox O2 Delivery O2 Flow Rate FiO2 08/25/25 12:21 96.9 77 18 131/68 (89) 99 96.9 08/25/25 10:05 Nasal Cannula* 2 28 Total Intake and Output 08/24/25 08/24/25 08/25/25 15:00 23:00 07:00 Intake Total 400 ml 300 ml Output Total 200 ml 200 ml Balance 200 ml 100 ml medications Current Medications Medications Dose Ordered Sig/Darci Route Start Time Stop Time Status Last Admin Dose Admin Atorvastatin Calcium 10 mg HS PO 08/20/25 22:00 08/24/25 22:40 10 MG Albuterol 2.5 mg Q6HPRN PRN NEB 08/19/25 22:45 08/23/25 01:05 2.5 MG Ondansetron HCl 4 mg Q4HP PRN IV 08/19/25 22:45 08/21/25 12:23 4 MG Lorazepam 1 mg ONCE PRN IV 08/20/25 23:00 Enoxaparin Sodium 60 mg Q12HR SC 08/21/25 22:00 08/25/25 08:45 60 MG Polyethylene Glycol 17 gm DAILYPRN PRN PO 08/22/25 16:15 08/23/25 09:46 17 GM Methocarbamol 500 mg TID PO 08/23/25 06:00 08/25/25 13:17 500 MG Primidone 100 mg HS PO 08/23/25 22:00 08/24/25 22:41 100 MG Aspirin 81 mg DAILY PO 08/24/25 10:00 08/25/25 08:44 81 MG objective GENERAL: Alert and oriented x 3. No acute distress. EYES: PERRL, EOMI. Anicteric. HENT: Moist mucous membranes. LUNGS: Clear to auscultation bilaterally. CARDIOVASCULAR: Regular rate and rhythm. ABDOMEN: Soft, nontender and nondistended. EXTREMITIES: No edema. NEUROLOGIC: No focal neurological deficits. SKIN: Warm, dry. laboratory and microbiology Laboratory Tests 08/24/25 05:21 Test 08/24/25 05:21 Range/Units Serum Glucose 82 74-106 mg/dL Problem List Preprocedural cardiovascular examination. Cervical stenosis of spinal canal. Occlusive DVT in mid distal right femoral vein and right popliteal vein. COPD with continuous home O2. Hypokalemia. History of CVA. History of breast cancer status post right breast lumpectomy. Tobacco use. Assessment/Plan Continued all current supportive medical care. Aspirin, Lipitor. DVT prophylactics. Additional plan as per the hospital course. Plan discussed with: Patient DORIAN LARSEN MD Aug 25, 2025 13:31
--- NOTE | 2025-08-25 22:32 | DVHPN2 ---
Progress Note - Dictate Date Seen: Aug 25, 2025 Medical Necessity Reason Pt with a Central, PICC or Fol: No Subjective Ms. Yanez is a 70 years old right-handed female with a history of breast cancer, COPD on home oxygen, she came to the [facility] on 08/19/2025 with a chief complaint of general weakness, gait disturbance I have seen and examined the patient, I have talked to her nurse, she is alert, oriented x3, again not a good historian I did not see obvious shaking in the legs when she was walking by her bed Urinalysis, 08/19/2025: Unremarkable WBC/HB/PLT/MCV, 08/20/2025: 3.1/12.7/201/97.3 BMP, 08/19/2025: Unremarkable HGB A1c, 08/20/2025: 4.8 Liver function tests, 08/19/2025: Unremarkable Vitamin B12, 08/20/25: 718 Folic acid, 08/20/2025: 2.62 TSH, 08/20/2025: 0.78 FT4, 08/20/2025: 0.75 Extremity venous study, 08/21/2025: 1. Occlusive deep venous thrombus in the mid-distal right femoral vein and right popiteal vein. 2. No evidence of deep venous thrombosis in the left lower extremity. CT head, 08/19/2025: Right posterior frontal lobe suggested area of Chronic infarct. Superimposed acute infarct can not be completely excluded. If there is concern for acute infarct, MRI should be considered for further evalution MRI head, 08/20/2025: No acute intracranial abnormality seen. No evidence for acute infarct. 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 Bilateral cataract extraction MRI C-spine, 08/21/2025: 1. No fracture of the cervical spine. 2. Advanced cervical degenerative disc disease and facet arthropathy with [id number] spinal canal stenosis at C5-C6 and C6-C7; mild spinal canal stenosis at C3-C4 and C4-C5. There is mass effect on the cervical spinal cord at every disc level C3-C6. Recommend spinal surgery consultation if not already obtained. 3. Multilevel significant neural foraminal stenosis including C3-C4 on the right, C4-C5 bilaterally, C5-C6 bilaterally, and C6-C7 bilaterally. These findings may correspond to upper extremity radicular symptoms in the right C4, bilateral C5, bilateral C6, and bilateral C7 nerve root distributions. 4. Slight reversal of normal cervical lordosis is likely chronic for the patient, less likely due to muscle spasm MRI T-spine, 08/21/2025: 1. No fracture of the thoracic spine. 2. Mild thoracic and advanced lower cervical degenerative disc disease. No high-grade spinal canal stenosis at any level in the thoracic spine. 3. Cardiomegaly and bilateral pleural effusions suggestive of CHF. This is better appreciated on chest x-ray dated 08/19/2025. 4. Cholelithiasis. vital signs Vital Sign Date Time Temp Pulse Resp B/P (MAP) Pulse Ox O2 Delivery O2 Flow Rate FiO2 08/25/25 21:00 98.3 77 16 149/67 (94) 100 98.3 08/25/25 20:00 Nasal Cannula* 2 28 Total Intake and Output 08/24/25 08/24/25 08/25/25 15:00 23:00 07:00 Intake Total 400 ml 300 ml Output Total 200 ml 200 ml Balance 200 ml 100 ml medications Current Medications Medications Dose Ordered Sig/Darci Route Start Time Stop Time Status Last Admin Dose Admin Atorvastatin Calcium 10 mg HS PO 08/20/25 22:00 08/25/25 21:42 10 MG Albuterol 2.5 mg Q6HPRN PRN NEB 08/19/25 22:45 08/23/25 01:05 2.5 MG Ondansetron HCl 4 mg Q4HP PRN IV 08/19/25 22:45 08/21/25 12:23 4 MG Lorazepam 1 mg ONCE PRN IV 08/20/25 23:00 Enoxaparin Sodium 60 mg Q12HR SC 08/21/25 22:00 08/25/25 21:43 60 MG Polyethylene Glycol 17 gm DAILYPRN PRN PO 08/22/25 16:15 08/23/25 09:46 17 GM Methocarbamol 500 mg TID PO 08/23/25 06:00 08/25/25 21:42 500 MG Primidone 100 mg HS PO 08/23/25 22:00 08/25/25 21:43 100 MG Aspirin 81 mg DAILY PO 08/24/25 10:00 08/25/25 08:44 81 MG objective General: the patient is well developed and nourished. No acute distress. MUSCULOSKELETAL EXAM: Mild tenderness to palpation in the neck MENTAL STATUS: Subjective SPEECH, LANGUAGE, HIGHER CORTICAL FUNCTION: no aphasia or dysathria. CRANIAL NERVES: Pupils are equal, round and reactive. EOMs full and conjugate. No nystagmus. Facial sensation intact in all three divisions bilaterally. Mandibular strength intact. Facial muscles symmetrical and strength intact. SENSATION: Sensation to touch and pinprick is diminished distally in the lower extremities, no sensory level MOTOR: Increased muscle tone in the left arm than leg, questionable increased tone in the right leg. Normal muscle bulk. No fasciculations. No abnormal movements or posturing. Muscle strength of the major groups in the upper extremities is 4/5 with the left-sided weaker. Muscle strength of the major groups in the lower extremities is 4/5. REFLEXES: Deep tendon reflexes: Arms: 3/4 with left-sided stronger, knees: 3/4, ankles: 4/4. No pathological reflexes. CEREBELLAR/COORDINATION: Finger to nose fine bilaterally. GAIT/STATION: Slow, but no tremors/shaking laboratory and microbiology Laboratory Tests 08/24/25 05:21 Test 08/24/25 05:21 Range/Units Serum Glucose 82 74-106 mg/dL Problem List General weakness Gait disturbance Chronic stroke Cervical spine spondylosis Polyneuropathy "Wobbling leg" Hyperreflexia Deep venous thrombosis Assessment/Plan Monitoring Supportive treatment Med surge Aspirin 81 mg daily Lipitor 10 mg daily Reduce the Primidone to 75mg HS (was 125mg b.i.d. at home) Oxygen Lovenox 60 mg subQ b.i.d. Up to chair Physical therapy Orthopedic surgeon More recommendation per clinical course This medical document was created using an electronic medical record system with [employer] dictation system. Although this document has been carefully reviewed, there may still be some phonetic and typographical errors. These areas are purely typographical due to imperfections of the software programs, and do not reflect any compromise in the patient's medical care. Prognosis poor Plan discussed with: Patient, Other SUZAN ROLDAN MD Aug 25, 2025 22:32
[2025-08-26] VITALS (10 sets, daily range): BP systolic 108–146; BP diastolic 56–77; PULSE 68–111; RESP 16–19; TEMP 97.8–98.5; O2SAT 94–99
[2025-08-26] MEDS: PRIMIDONE 50 MG TAB PO SCH (01:12)
--- NOTE | 2025-08-26 09:43 | DVHPN2 ---
Reviewed: Care Plan, H&P, Labs, Medications, Previous Orders, Radiology Changes from previous H/P or p: No Changes Objective Vitals Vital Signs Date Time Temp Pulse Resp B/P (MAP) Pulse Ox O2 Delivery O2 Flow Rate FiO2 08/26/25 08:54 98.5 76 16 142/70 (94) 96 98.5 08/26/25 08:10 Nasal Cannula* 2 28 Intake/Output Intake and Output 08/26/25 07:00 Intake Total 1200 ml Balance 1200 ml Intake Oral 1200 ml # Voids 6 # Bowel Movements 5 Medications Current Medications Medications Dose Ordered Sig/Darci Route Start Time Stop Time Status Last Admin Dose Admin Atorvastatin Calcium 10 mg HS PO 08/20/25 22:00 08/25/25 21:42 10 MG Albuterol 2.5 mg Q6HPRN PRN NEB 08/19/25 22:45 08/23/25 01:05 2.5 MG Ondansetron HCl 4 mg Q4HP PRN IV 08/19/25 22:45 08/21/25 12:23 4 MG Lorazepam 1 mg ONCE PRN IV 08/20/25 23:00 Enoxaparin Sodium 60 mg Q12HR SC 08/21/25 22:00 08/25/25 21:43 60 MG Polyethylene Glycol 17 gm DAILYPRN PRN PO 08/22/25 16:15 08/23/25 09:46 17 GM Methocarbamol 500 mg TID PO 08/23/25 06:00 08/26/25 05:46 500 MG Aspirin 81 mg DAILY PO 08/24/25 10:00 08/25/25 08:44 81 MG Primidone 75 mg HS PO 08/25/25 23:30 08/26/25 01:12 75 MG Laboratory Results Laboratory Tests 08/24/25 05:21 Urinalysis Test 08/19/25 16:50 Urine Color Light-yellow (Yellow) Urine Clarity Clear (Clear) Urine pH 6.0 (5.0-9.0) Urine Specific [place] 1.014 (1.001-1.035) Urine Protein Trace (Negative) H Urine Ketones 4+ (Negative) H Urine Blood Negative /uL (Negative) Urine Nitrite Negative (Negative) Urine Bilirubin Negative (Negative) Urine Urobilinogen Normal mg/dL (Negative) Urine Leukocyte Esterase Negative /uL (Negative) Urine RBC 1 /hpf (0 - 4) Urine Microscopic WBC 1 /HPF (0-5) Urine Squamous Epithelial Cells Few /hpf (<5) Urine Bacteria None seen /hpf (None Seen) Urine Glucose Normal mg/dL (Normal) Microbiology Microbiology Date/Time Source Procedure Growth Status 08/19/25 17:15 Blood Blood Culture - Final NO GROWTH AFTER 5 DAYS OF INCUBATION. Complete 08/19/25 16:50 Voided Urine Urine Culture - Final Complete Labs and/or images reviewed: Labs reviewed by me, Image(s) reviewed by me Assessment/Plan Assessment/Plan Acute Generalized weakness Acute Hypokalemia potassium 2.9: Replace potassium Elevated troponin, downtrending Neutropenia WBC 2.5 Chronic anemia hemoglobin 11 Acute COPD exacerbation Unsteady gait Chronic stroke Cervical radiculopathy: Dr. Estrada planning for C-spine surgery today, cardiology Dr. Meg Clark cleared for surgery Chest x-ray negative CT head shows chronic right posterior frontal infarct MRI brain shows chronic right posterior frontal infarct: Consult for Neurology Dr. Tong, primidone 125 mg p.o. HS DVT right lower extremity: Lovenox 1 milligram/kilos subQ b.i.d. Patient lives alone: Social service consult Time spent 46 minutes Advanced care planning time 20 minutes Patient is full code Plan discussed with: Patient Date of Service: Aug 26, 2025 Billing Provider: RACH WU MD Common Visit Codes: [id number] INP/OBS CARE(HIGH) RACH WU MD Aug 26, 2025 09:43
[2025-08-26 11:55] LABS: INR 1.03 (0.9-1.15); Partial Thromboplastin Time 28.4 SEC (24.5-34.5); Prothrombin Time 10.9 sec (9.3-11.8)
[2025-08-26] MEDS: LIDOCAINE 4MG/ML IV SOLN 500 ML IV ONE (16:42)
[2025-08-26] MEDS ORDERED: MIDAZOLAM HCL 2MG/2ML 2ml VIAL (1mg/ml) ONE (16:44)
[2025-08-26] MEDS ORDERED: fentaNYL CITRATE 100 MCG/2 ML VL ONE (16:44)
[2025-08-26] MEDS ORDERED: PROPOFOL 10 MG/ML 20 ML IV ONE ×3 (16:45→19:34)
[2025-08-26] MEDS ORDERED: METOCLOPRAMIDE HCL 5MG/ml INJ 2ml VIAL ONE (16:45)
[2025-08-26] MEDS ORDERED: ROCURONIUM 10MG/ML 10ML VIAL IV ONE (16:45)
[2025-08-26] MEDS ORDERED: ONDANSETRON HCL 4 MG/2 ML VIAL ONE (16:45)
[2025-08-26] MEDS ORDERED: METOCLOPRAMIDE HCL 5MG/ml INJ 2ml VIAL IV PRN (16:45)
[2025-08-26] MEDS ORDERED: ONDANSETRON HCL 4 MG/2 ML VIAL IV PRN ×2 (16:45→20:15)
[2025-08-26] MEDS ORDERED: PHENYLEPHRINE HCL 10 MG/ML VL ONE (16:47)
--- NOTE | 2025-08-26 16:49 | PRN ---
Misceleneous Note Note Note Surgical/procedural interval history and physical note Current H and P was reviewed. The patient was reexamined. Re-evaluation of the patient confirms the necessity for the scheduled procedure. No change has occurred in the patient's condition since the H and P/ spine consult was complete no less than 30 days ago. Physicians verification of informed consent The patient was counseled regarding the procedure, its indications, risks, potential complications, and alternatives. The risks/benefits/alternatives of surgery were explained to the patient in detail including but not limited to , stroke, paralysis, myocardial infarction, bleeding, infection, complications of anesthesia (dry mouth, sore throat, dental damage, respiratory depression, blindness), postoperative infection, incomplete relief of symptoms, recurrence of symptoms, damage to blood vessels, nerves and tendons, pulmonary embolism and possible need for repeat surgery in the future. Pain, damage to surrounding soft tissue structures, need for reoperation or future surgery, persistent pain/disability/deformity, bone graft collapse or extrusion of interbody device, instrumentation failure, need for instrumentation removal, dural tear, temporary or permanent nerve root damage, deep vein thrombosis, pulmonary embolism, were described to the patient in detail and the patient wishes to proceed. No guarantee of surgical outcome/improvement was implied. All of the questions were answered thoroughly, patient was agreeable to proceed and consents were obtained. Physicians verification of informed consent for blood transfusion There is a reasonable possibility that blood transfusions will be necessary as a result of the patient's procedure. I have discussed the following with the patient/patient's legal appliance service representative. An explanation of benefits and risks of the transfusion of blood or blood products and possible alternatives. All questions have been answered to the patient's or they are legal representatives satisfaction. Informed consent -The patient has been informed of: -The nature of the proposed care, treatment, services, medications, interventions or procedures. -Potential benefits, risks or side effects, including potential problems related to the procedure. -The likelihood of achieving care treatment and Service goals -Possible alternatives to the procedure/proposed care, treatment and service. -The relative risks, benefits and side effects related to alternatives, inc luding possible results of not receiving care, treatment and services. -When indicated, any limitations on the confidentiality of the informed leaning from or about the patient. -if appropriate, the risks, benefits and alternatives of the drugs to be used for sedation/analgesia including moderate sedation. -if appropriate, patient has been provided information on the risks, benefits and alternatives to the transfusion of blood and/or blood products. -if appropriate, the patient has been provided information regarding the Dwaine Peckham blood act. Call with questions Daren Gaytan [facility] nurse practitioner For Dr Edenilson Estrada Patient was examined, chart reviewed, labs evaluated, and diagnostic studies and findings analyzed. Case was discussed with Dr. Jalen Estrada who formulated the plan of care. This medical document was created using an electronic medical record system with [employer] dictation system. Although this document has been carefully reviewed, there might still be some phonetic and typographical errors. These areas are purely typographical due to imperfections of the software programs, a nd do not reflect any compromise in the patient's medical care. TAMMY GAYTAN NP Aug 26, 2025 16:49
[2025-08-26] MEDS ORDERED: fentaNYL CITRATE 5 ML ONE ×2 (16:52→18:32)
[2025-08-26] MEDS ORDERED: SUGAMMADEX 200mg/2ml Vial (100MG/ML) IV ONE (17:48)
[2025-08-26] MEDS ORDERED: hydrALAZINE HCL 20 MG/ML VL ONE (18:10)
[2025-08-26] MEDS ORDERED: SODIUM CHLORIDE LOCK 10 ML ONE (20:04)
--- NOTE | 2025-08-26 20:07 | DVHOP2 ---
Operative Report - 2 Report Details Date: 08/26/25 Preop Diagnosis: cervical spinal stenosis with myelopathy Postop Diagnosis: cervical spinal stenosis with myelopathy Surgeon: Jalen Estrada MD [employer] Clerk: Yuli Gaytan NP Anesthesiologist: general Anesthesia: General Consent: The patient was informed of the risks and benefits of the procedure. These include but are not limited to complications of anesthesia, postoperative infection, incomplete relief of symptoms, recurrence of symptoms, damage to blood vessels, nerves and tendons, deep venous thrombosis, pulmonary embolism and possible need for repeat surgery in the future. Name of Procedure Performed see detailed note Procedure Details Procedure Details: Pre Op Diagnosis: 1. Cervical Degenerative Disk Disease and Severe Spinal Stenosis at cervical 3/4, 4/5, 5/6 and 6/7 Causing incapacitating neck pain, radiculopathy and progressive neurologic deficit 2. Cervical myelopathy with cord compression at C3/4, C4/5 and C5/6 Post Op Diagnosis: 1. Same as pre op Procedure: Cervical 3 to 4 anterior cervical discectomy with Cervical 3-4 foraminotomies and facetectomies to decompress the spinal canal and Cervical 4 nerve roots Cervical 4 to 5 anterior cervical discectomy with Cervical 4-5 foraminotomies and facetectomies to decompress the spinal canal and Cervical 5 nerve roots Cervical 5 to 6 anterior cervical discectomy with Cervical 5-6 foraminotomies and facetectomies to decompress the spinal canal and Cervical 6 nerve roots Cervical 6 to 7 anterior cervical discectomy with cervical 6-7 foraminotomies and facetectomies to decompress the spinal canal and cervical 7 nerve roots Cervical 3-7 anterior cervical Fusion Cervical 3-6 anterior cervical instrumentation with Xtant Irix - C Standalone Interbody fusion devices Cervical 3-4 placement of allograft prosthetic device Cervical 4-5 placement of allograft prosthetic device Cervical 5-6 placement of allograft prosthetic device Cervical 6-7 placement of allograft prosthetic device Microscope for micro dissection Surgeon: Jalen Estrada MD Anesthesia: General Assist: Yuli Gaytan NP Fluids and EBL: see anesthesia note Procedure Note: The patient was seen in the Pre-anesthesia Care Unit and the site of the incision was initialed by me with a felt tipped marker. All questions by the patient were answered to the satisfaction of the patient and the chart was reviewed. The patient was taken to the operating room and placed supine on the [facility] top table. General anesthesia was induced. Neuromonitoring leads were placed. A rolled towel was placed between the shoulder blades to hyperextend out the chest which will allow better exposure of the cervical spine. Halter traction to 10 pounds was placed. The arms were padded and adducted to the patients side making sure all pulses in the hands were present. Tape traction was undertaken on the shoulders to give us better radiographic exposure of the distal cervical spine. A gel-pad was placed under the occiput and 5 degrees of extension was placed on the neck without adverse effects to the patient. The anterior neck was prepped and draped. Pre-operative antibiotics were given 30 minutes prior to the start of the procedure. A c-arm fluoroscope was used to cyrus out the incision site. I marked out a longitudinal incision from just cranial to the clavicle all the way cranial to the hyoid bone along the anterior border of the sternocleidomastoid muscle. At this time, a time out was taken per usual protocol. Next an incision was made through the skin with a 15 blade scalpel through the subcutaneous tissue down to the platysma. Self-retainers were placed. The platysma was incised along the longitudinal border with a Metzenbaum scissors. Blunt dissection was made through the deep cervical and pre-tracheal fascia taking care to protect the carotid sheath laterally and the Trachea/esophagus medially. The dissection was carried down to the pre- vertebral fascia. Any crossing vessels were ligated using a vascular clip or coagulated with a bovie. An esophageal retractor was next used to retract the trachea/esophagus and a bent [address] through the anterior annulus of the cervical disk and a lateral C-arm fluoroscopic image was taken to confirm that we were at the correct level. Next, bovie electrocautery was used to expose the bones of cervical 3,4,5,6 and 7 and bipolar electrocautery was used to lift up the Longus colli and capitus muscles. Black-Belt Self Retainers were used to retract the longus colli and capitus muscles bilaterally as well as the trachea/esophagus to the right and the carotid sheath to the left. Smooth thin Black-Belt retractors were placed proximally and distally and a needle was placed again in the anterior annulus of the disk and an image taken to confirm the correct level. At this point, the microscope was wheeled in and an 11 blade scalpel incised the anterior annulus of the cervical 3/4 and 4/5 and 5/6 and 6/7 disks. Next, straight and curved curettes removed the remainder of the disks all the way down to the posterior longitudinal ligament. Carefully, a Kerison number one rongeur incised the posterior longitudinal ligament at the lateral end of the above disks and using a micro, blunt tip nerve hook to separate the posterior longitudinal ligament from the dura, alternating 1 mm and 2 mm Kerison rongeurs removed the posterior longitudinal ligament. Next, Kerison 1mm and 2 mm rongeurs were alternated to get under the uncinate processes and undercut them to perform foraminotomies and factectomies at the cervical 3/4 and 4/5 ,5/6 and 6/7 levels to decompress the central canal and cervical 4,5, 6 and 7 nerve roots. Next the microscope was wheeled away and the c-arm fluoroscope was wheeled into the field and a lateral image was obtained. Increasing size graft trials were used starting at a 5 mm thick size until the proper tension in the disk space and height advent obtained. We then placed final free standing cages at C3/4 and 4/5 and 5/6 and 6/7. All interbody prosthetic devices were 7mm in thickness Satisfactory placement was confirmed in the AP and lateral views using a C-arm fluoroscope. Copious irrigation of the wound with sterile saline and all bleeding was controlled before closure initiated. At this point, a [address]ian [address] was place deep to the Platysma muscle and the Platysma was approximated with one interrupted 0-Vicryl suture. The subcutaneous tissue was closed with interrupted 2-0 vicryl sutures and the skin was closed with nunu. Sterile dressings were placed and a cervical collar placed, the patient extubated, transferred to the stretcher and taken to the Recovery Room in unremarkable condition. Other Notes: Condition Stable Disposition Still a Patient JALEN ESTRADA MD Aug 26, 2025 20:07
[2025-08-26] MEDS: ceFAZolin 2 GM/D5W50ml 50 ML IV ONE (20:14)
[2025-08-26] MEDS: MAGNESIUM SULFATE 1GM/100ML 100 ML IV ONE (20:15)
[2025-08-26] MEDS: TRANEXAMIC ACID 20 ML ONE (20:15)
[2025-08-26] MEDS ORDERED: MORPHINE SULFATE INJ 2 MG/ml SYRG IV PRN ×2 (20:15)
[2025-08-26] MEDS ORDERED: NITROGLYCERIN 0.4 MG SL TAB SL PRN (20:15)
[2025-08-26] MEDS ORDERED: ACETAMINOPHEN 325 MG TAB PO PRN (20:15)
[2025-08-26] MEDS: HYDROmorphone HCL 2 MG/ML VL/or syr ONE ×2 (20:32→21:12)
--- NOTE | 2025-08-26 20:33 | DVH ---
CLINICAL INDICATION: C3-7 TECHNIQUE: 2 radiographic views of the cervical spine were obtained. COMPARISON: None FINDINGS/IMPRESSION: 2 views of the cervical spine intraoperatively. Surgical marker devices noted anteriorly between c 4 and C5. [address] in [address]. A dose summary sheet nonoccluded.
[2025-08-26] MEDS: HYDROmorphone HCL 2 MG/ML VL/or syr IV PRN (20:34)
--- NOTE | 2025-08-26 20:54 | DVH ---
XY C ARM FLUOROSCOPY UP TO 60MIN INDICATION: C3-7 TECHNIQUE:: Intraoperative fluoroscopic images were obtained TOTAL DOSE AREA PRODUCT: 4.71 mGy COMPARISON: None FINDINGS: Successful intraoperative fluoroscopic guidance. IMPRESSION: 1. Successful intraoperative fluoroscopic guidance and please follow up with surgical report.
--- NOTE | 2025-08-26 21:01 | DVHPN2 ---
Progress Note - Dictate Date Seen: Aug 26, 2025 Medical Necessity Reason Pt with a Central, PICC or Fol: No Subjective Ms. Yanez is a 70 years old right-handed female with a history of breast cancer, COPD on home oxygen, she came to the [facility] on 08/19/2025 with a chief complaint of general weakness, gait disturbance I have seen and examined the patient, I have talked to her nurse, she is alert, oriented x3, but he looks very tired She stopped post cervical spine diskectomy I did not see obvious shaking in the legs when she was walking by her bed Urinalysis, 08/19/2025: Unremarkable WBC/HB/PLT/MCV, 08/20/2025: 3.1/12.7/201/97.3 BMP, 08/19/2025: Unremarkable HGB A1c, 08/20/2025: 4.8 Liver function tests, 08/19/2025: Unremarkable Vitamin B12, 08/20/25: 718 Folic acid, 08/20/2025: 2.62 TSH, 08/20/2025: 0.78 FT4, 08/20/2025: 0.75 Extremity venous study, 08/21/2025: 1. Occlusive deep venous thrombus in the mid-distal right femoral vein and right popiteal vein. 2. No evidence of deep venous thrombosis in the left lower extremity. CT head, 08/19/2025: Right posterior frontal lobe suggested area of Chronic infarct. Superimposed acute infarct can not be completely excluded. If there is concern for acute infarct, MRI should be considered for further evalution MRI head, 08/20/2025: No acute intracranial abnormality seen. No evidence for acute infarct. 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 Bilateral cataract extraction MRI C-spine, 08/21/2025: 1. No fracture of the cervical spine. 2. Advanced cervical degenerative disc disease and facet arthropathy with [id number] spinal canal stenosis at C5-C6 and C6-C7; mild spinal canal stenosis at C3-C4 and C4-C5. There is mass effect on the cervical spinal cord at every disc level C3-C6. Recommend spinal surgery consultation if not already obtained. 3. Multilevel significant neural foraminal stenosis including C3-C4 on the right, C4-C5 bilaterally, C5-C6 bilaterally, and C6-C7 bilaterally. These findings may correspond to upper extremity radicular symptoms in the right C4, bilateral C5, bilateral C6, and bilateral C7 nerve root distributions. 4. Slight reversal of normal cervical lordosis is likely chronic for the patient, less likely due to muscle spasm MRI T-spine, 08/21/2025: 1. No fracture of the thoracic spine. 2. Mild thoracic and advanced lower cervical degenerative disc disease. No high-grade spinal canal stenosis at any level in the thoracic spine. 3. Cardiomegaly and bilateral pleural effusions suggestive of CHF. This is better appreciated on chest x-ray dated 08/19/2025. 4. Cholelithiasis. vital signs Vital Sign Date Time Temp Pulse Resp B/P (MAP) Pulse Ox O2 Delivery O2 Flow Rate FiO2 08/26/25 20:54 111 15 147/66 08/26/25 17:00 98.1 99 98.1 08/26/25 10:05 Nasal Cannula 2.0 08/26/25 10:05 28 Total Intake and Output 08/25/25 08/25/25 08/26/25 15:00 23:00 07:00 Intake Total 400 ml 800 ml Balance 400 ml 800 ml medications Current Medications Medications Dose Ordered Sig/Darci Route Start Time Stop Time Status Last Admin Dose Admin Atorvastatin Calcium 10 mg HS PO 08/20/25 22:00 08/25/25 21:42 10 MG Albuterol 2.5 mg Q6HPRN PRN NEB 08/19/25 22:45 08/23/25 01:05 2.5 MG Ondansetron HCl 4 mg Q4HP PRN IV 08/19/25 22:45 08/21/25 12:23 4 MG Lorazepam 1 mg ONCE PRN IV 08/20/25 23:00 Enoxaparin Sodium 60 mg Q12HR SC 08/21/25 22:00 08/25/25 21:43 60 MG Polyethylene Glycol 17 gm DAILYPRN PRN PO 08/22/25 16:15 08/23/25 09:46 17 GM Methocarbamol 500 mg TID PO 08/23/25 06:00 08/26/25 05:46 500 MG Aspirin 81 mg DAILY PO 08/24/25 10:00 08/25/25 08:44 81 MG Primidone 75 mg HS PO 08/25/25 23:30 08/26/25 01:12 75 MG Dextrose/Sodium Chloride 1,000 ml @ 100 mls/hr Q10H IV 08/26/25 20:15 Ondansetron HCl 4 mg Q4HP PRN IV 08/26/25 20:15 UNV Acetaminophen 650 mg Q6HP PRN PO 08/26/25 20:15 Acetaminophen/ Hydrocodone Bitart 1 tab Q6HP PRN PO 08/26/25 20:15 Morphine Sulfate 1 mg Q4HP PRN IV 08/26/25 20:15 Cyclobenzaprine HCl 10 mg TID PO 08/26/25 22:00 Docusate Sodium 100 mg BID PO 08/26/25 22:00 Cefazolin Sodium 50 ml @ 100 mls/hr Q8HR IV 08/26/25 22:00 08/28/25 14:29 Nitroglycerin 0.4 mg Q5MINP PRN SL 08/26/25 20:15 Morphine Sulfate 2 mg Q30M PRN IV 08/26/25 20:15 objective General: the patient is well developed and nourished. No acute distress. MUSCULOSKELETAL EXAM: Mild tenderness to palpation in the neck MENTAL STATUS: Subjective SPEECH, LANGUAGE, HIGHER CORTICAL FUNCTION: no aphasia or dysathria. CRANIAL NERVES: Pupils are equal, round and reactive. EOMs full and conjugate. No nystagmus. Facial sensation intact in all three divisions bilaterally. Mandibular strength intact. Facial muscles symmetrical and strength intact. SENSATION: Sensation to touch and pinprick is diminished distally in the lower extremities, no sensory level MOTOR: Increased muscle tone in the left arm than leg, questionable increased tone in the right leg. Normal muscle bulk. No fasciculations. No abnormal movements or posturing. Muscle strength of the major groups in the upper extremities is 4/5 with the left-sided weaker. Muscle strength of the major groups in the lower extremities is 4/5. REFLEXES: Deep tendon reflexes: Arms: 3/4 with left-sided stronger, knees: 3/4, ankles: 4/4. No pathological reflexes. CEREBELLAR/COORDINATION: Finger to nose fine bilaterally. GAIT/STATION: Deferred laboratory and microbiology Laboratory Tests 08/24/25 05:21 Test 08/24/25 05:21 Range/Units Serum Glucose 82 74-106 mg/dL Problem List General weakness Gait disturbance Chronic stroke Cervical spine spondylosis Polyneuropathy "Wobbling leg" Hyperreflexia Deep venous thrombosis Assessment/Plan Monitoring Supportive treatment Med surge Aspirin 81 mg daily Lipitor 10 mg daily Primidone 75mg HS (was 125mg b.i.d. at home) Oxygen Lovenox 60 mg subQ b.i.d. Up to chair Physical therapy Orthopedic surgeon More recommendation per clinical course This medical document was created using an electronic medical record system with [employer] dictation system. Although this document has been carefully reviewed, there may still be some phonetic and typographical errors. These areas are purely typographical due to imperfections of the software programs, and do not reflect any compromise in the patient's medical care. Prognosis poor Plan discussed with: Patient, Other SUZAN ROLDAN MD Aug 26, 2025 21:01
[2025-08-26] MEDS: ceFAZolin 1GM/50ML 50 ML IV SCH (22:58)
[2025-08-26] MEDS: DOCUSATE SOD 100 MG CAP PO SCH (23:00)
[2025-08-26] MEDS: CYCLOBENZAPRINE HCL 10 MG TAB PO SCH (23:01)
[2025-08-27] VITALS (12 sets, daily range): BP systolic 135–189; BP diastolic 62–90; PULSE 93–116; RESP 14–18; TEMP 97.4–98.5; O2SAT 93–100
--- NOTE | 2025-08-27 00:17 | DVHPN2 ---
Progress Note - Dictate Date Seen: Aug 26, 2025 Medical Necessity Reason Pt with a Central, PICC or Fol: No Subjective Patient was seen and evaluated in follow up. Patient is s/p cervical spine diskectomy. Patient is complaining of neck pain at surgical site. Patient is receiving Dilaudid for pain management. vital signs Vital Sign Date Time Temp Pulse Resp B/P (MAP) Pulse Ox O2 Delivery O2 Flow Rate FiO2 08/26/25 22:09 97 Nasal Cannula 2.0 08/26/25 22:09 28 08/26/25 21:12 108 14 109/61 08/26/25 21:00 97.9 97.9 Total Intake and Output 08/26/25 08/26/25 08/27/25 15:00 23:00 07:00 Intake Total 170 ml 50 ml Output Total 650 ml Balance -480 ml 50 ml medications Current Medications Medications Dose Ordered Sig/Darci Route Start Time Stop Time Status Last Admin Dose Admin Atorvastatin Calcium 10 mg HS PO 08/20/25 22:00 08/26/25 23:00 10 MG Albuterol 2.5 mg Q6HPRN PRN NEB 08/19/25 22:45 08/23/25 01:05 2.5 MG Ondansetron HCl 4 mg Q4HP PRN IV 08/19/25 22:45 08/21/25 12:23 4 MG Lorazepam 1 mg ONCE PRN IV 08/20/25 23:00 Enoxaparin Sodium 60 mg Q12HR SC 08/21/25 22:00 08/26/25 22:58 60 MG Polyethylene Glycol 17 gm DAILYPRN PRN PO 08/22/25 16:15 08/23/25 09:46 17 GM Methocarbamol 500 mg TID PO 08/23/25 06:00 08/26/25 05:46 500 MG Aspirin 81 mg DAILY PO 08/24/25 10:00 08/25/25 08:44 81 MG Primidone 75 mg HS PO 08/25/25 23:30 08/26/25 23:12 75 MG Dextrose/Sodium Chloride 1,000 ml @ 100 mls/hr Q10H IV 08/26/25 20:15 Ondansetron HCl 4 mg Q4HP PRN IV 08/26/25 20:15 Hold Acetaminophen 650 mg Q6HP PRN PO 08/26/25 20:15 Acetaminophen/ Hydrocodone Bitart 1 tab Q6HP PRN PO 08/26/25 20:15 Morphine Sulfate 1 mg Q4HP PRN IV 08/26/25 20:15 Cyclobenzaprine HCl 10 mg TID PO 08/26/25 22:00 08/26/25 23:01 10 MG Docusate Sodium 100 mg BID PO 08/26/25 22:00 08/26/25 23:00 100 MG Cefazolin Sodium 50 ml @ 100 mls/hr Q8HR IV 08/26/25 22:00 08/28/25 14:29 08/26/25 22:58 100 MLS/HR Nitroglycerin 0.4 mg Q5MINP PRN SL 08/26/25 20:15 Morphine Sulfate 2 mg Q30M PRN IV 08/26/25 20:15 objective GENERAL: Alert and oriented x 3. No acute distress. EYES: PERRL, EOMI. Anicteric. HENT: Moist mucous membranes. LUNGS: Clear to auscultation bilaterally. CARDIOVASCULAR: Regular rate and rhythm. ABDOMEN: Soft, nontender and nondistended. EXTREMITIES: No edema. NEUROLOGIC: No focal neurological deficits. SKIN: Warm, dry. laboratory and microbiology Laboratory Tests 08/24/25 05:21 Test 08/24/25 05:21 Range/Units Serum Glucose 82 74-106 mg/dL Problem List Preprocedural cardiovascular examination. Cervical stenosis of spinal canal. Occlusive DVT in mid distal right femoral vein and right popliteal vein. COPD with continuous home O2. Hypokalemia. History of CVA. History of breast cancer status post right breast lumpectomy. Tobacco use. Assessment/Plan Continued all current supportive medical care. Dilaudid and [place] for pain management. Aspirin, Lipitor. IV antibiotics as ordered. DVT prophylactics. Additional plan as per the hospital course. Plan discussed with: Patient DORIAN LARSEN MD Aug 27, 2025 00:17
[2025-08-27] MEDS: D5W/SOD CHLO 0.9% 1,000 ML IV SCH (00:31)
[2025-08-27] MEDS: HYDROcodone-ACET 10/325MG TAB PO PRN (04:35)
--- NOTE | 2025-08-27 06:35 | DVHPN2 ---
Progress Note - Surgical Date Seen: Aug 27, 2025 Post op day Post op day: 1 Subjective Patient reports: No new complaints, Feels better Review of Systems: NEURO:Abnormal (BLE weakness) Objective Vital signs Vital Sign Date Time Temp Pulse Resp B/P (MAP) Pulse Ox O2 Delivery O2 Flow Rate FiO2 08/27/25 05:00 98.3 108 14 144/77 (99) 96 98.3 08/26/25 22:09 Nasal Cannula 2.0 08/26/25 22:09 28 Total Intake and Output 08/26/25 08/26/25 08/27/25 15:00 23:00 07:00 Intake Total 170 ml 75 ml Output Total 650 ml Balance -480 ml 75 ml Medications Current Medications Medications Dose Ordered Sig/Darci Route Start Time Stop Time Status Last Admin Dose Admin Atorvastatin Calcium 10 mg HS PO 08/20/25 22:00 08/26/25 23:00 10 MG Albuterol 2.5 mg Q6HPRN PRN NEB 08/19/25 22:45 08/23/25 01:05 2.5 MG Ondansetron HCl 4 mg Q4HP PRN IV 08/19/25 22:45 08/21/25 12:23 4 MG Lorazepam 1 mg ONCE PRN IV 08/20/25 23:00 Enoxaparin Sodium 60 mg Q12HR SC 08/21/25 22:00 08/26/25 22:58 60 MG Polyethylene Glycol 17 gm DAILYPRN PRN PO 08/22/25 16:15 08/23/25 09:46 17 GM Methocarbamol 500 mg TID PO 08/23/25 06:00 08/26/25 05:46 500 MG Aspirin 81 mg DAILY PO 08/24/25 10:00 08/25/25 08:44 81 MG Primidone 75 mg HS PO 08/25/25 23:30 08/26/25 23:12 75 MG Dextrose/Sodium Chloride 1,000 ml @ 100 mls/hr Q10H IV 08/26/25 20:15 08/27/25 00:31 100 MLS/HR Ondansetron HCl 4 mg Q4HP PRN IV 08/26/25 20:15 Hold Acetaminophen 650 mg Q6HP PRN PO 08/26/25 20:15 Acetaminophen/ Hydrocodone Bitart 1 tab Q6HP PRN PO 08/26/25 20:15 08/27/25 04:35 1 TAB Morphine Sulfate 1 mg Q4HP PRN IV 08/26/25 20:15 Cyclobenzaprine HCl 10 mg TID PO 08/26/25 22:00 08/26/25 23:01 10 MG Docusate Sodium 100 mg BID PO 08/26/25 22:00 08/26/25 23:00 100 MG Cefazolin Sodium 50 ml @ 100 mls/hr Q8HR IV 08/26/25 22:00 08/28/25 14:29 08/26/25 22:58 100 MLS/HR Nitroglycerin 0.4 mg Q5MINP PRN SL 08/26/25 20:15 Morphine Sulfate 2 mg Q30M PRN IV 08/26/25 20:15 Laboratory Laboratory Tests 08/24/25 05:21 Test 08/24/25 05:21 Range/Units Serum Glucose 82 74-106 mg/dL Microbiology Date/Time Source Procedure Growth Status 08/19/25 17:15 Blood Blood Culture - Final NO GROWTH AFTER 5 DAYS OF INCUBATION. Complete 08/19/25 16:50 Voided Urine Urine Culture - Final Complete Examination: GENERAL:Normal, HEENT:Normal, NECK:Normal (no swelling), LUNGS:Normal, CVS:Normal, ABDOMEN:Normal, MSK:Normal (pt able to stand to get up to commode at bedside), SKIN:Normal (left anterior neck would well approximated, drain intact.), NEURO:Normal (patient said she is not feeling the pain in her legs), :Normal Problem List/Assessment/Plan Problems: (1) Acute post-operative pain (2) Muscle spasms of neck (3) Muscle spasms of neck Assessment and Plan drain dc today minimal drainage patient able to get up to bedside commode patient needs to work with PT for reconditioning, LE strengthening and ambulation development patient tolerating diet sore throat- dose of Decadron ordered, ice chips, use throst spray for discomfort patient is clear to DC from a spine perspective once she is safe to DC, or transfer to SNF for rehab, or home health all discharge per admitting team discretion keep patient on muscle relaxers hold all DVT PPX for 14 days post op. ASA is acceptable if needed Call for a appointment, two weeks postoperative with Dr. Jalen Estrada for staple removal [id number] [facility], [address], [place] [id number] The patient arrived for a elective spine surgery with Dr. ESTRADA. Surgery went as planned with no complications. After a short stay in the PACU patient was admitted to the hospital for postoperative care and pain management over the course of 1 postoperative days the patient was able to tolerate a diet, ambulate independently, the pain has been managed with oral analgesics. The surgical site is well-approximated with sutures, some residual drainage continues from drain insertion sites after removal, however it is manageable with daily wound care and dressing changes. Some improvement to preoperative symptoms of extremities, strength and motion. There is new post operative pain that is localized to the surgical site. The patient will follow-up with Dr. Estrada for wound check and suture check or staple removal. You may shower and let the water run over your neck wound however you must pat it dry with sterile 4x4s gauze. Please do not use regular household towels. Keep your incision covered when you are out of your house or when you are wearing clothing that rub on your incision. He will also do not want to have a seatbelt rubbing on your incision. If you are at home and you have clothing that does not contact your incision you may leave it open to air. You may have some residual drainage from the drain site for the next 2-3 days which is normal it should be a very light pink or pascual color fluid. If it changes or becomes bright red please call 911. My Orders My Orders Orders - TAMMY FRIED NP Procedure Category Date Status Time Obtain Consent For SANDY 08/26/25 In Process Anesthesia 08:22 Npo (Nothing By DIET 08/26/25 Transmitted Mouth) Diet Breakfast Obtain Consent For: ORDERS 08/26/25 Transmitted 09:13 Communication Order ORDERS 08/27/25 Transmitted 06:22 Patient Is Cleared ORDERS 08/27/25 Transmitted For D/C 06:22 Dexamethasone PHA 08/27/25 Transmitted Injection (Decadron 06:30 Plan discussed with Plan discussed with: Patient, Other (Bedside nurse) Visit Coding Surgery Date of Service if different f: Aug 27, 2025 Billing Provider: TAMMY FRIED NP Surgery Visit Codes: NOT BILLABLE TAMMY FRIED NP Aug 27, 2025 06:35
--- NOTE | 2025-08-27 06:37 | DVHDS2 ---
ASSESSMENT ASSESSMENT Hospital Course The patient arrived for a elective spine surgery with Dr. ESTRADA. Surgery went as planned with no complications. After a short stay in the PACU patient was admitted to the hospital for postoperative care and pain management over the course of 1 postoperative days the patient was able to tolerate a diet, ambulate independently, the pain has been managed with oral analgesics. The surgical site is well-approximated with sutures, some residual drainage continues from drain insertion sites after removal, however it is manageable with daily wound care and dressing changes. Some improvement to preoperative symptoms of extremities, strength and motion. There is new post operative pain that is localized to the surgical site. Patient did experience a sore throat and a slightly hoarse voice which was treated with ice chips, 10 mg of Decadron IV x1 and Chloraseptic throat spray The patient will follow-up with Dr. Estrada for wound check and suture check or staple removal. You may shower and let the water run over your neck wound however you must pat it dry with sterile 4x4s gauze. Please do not use regular household towels. Keep your incision covered when you are out of your house or when you are wearing clothing that rub on your incision. He will also do not want to have a seatbelt rubbing on your incision. If you are at home and you have clothing that does not contact your incision you may leave it open to air. You may have some residual drainage from the drain site for the next 2-3 days which is normal it should be a very light pink or pascual color fluid. If it changes or becomes bright red please call 911. Assessment cervical spinal stenosis with myelopathy Problems: (1) Muscle spasms of neck Assessments: Keep patient on muscle relaxers please discharge with a at least two weeks' worth of medication (2) Acute post-operative pain Assessments: Please discharge pain patient with postoperative oral pain medications TAMMY FRIED NP Aug 27, 2025 06:37
[2025-08-27] MEDS ORDERED: MORPHINE SULFATE 4 MG/ML SYR/VIAL IV PRN (07:45)
[2025-08-27] MEDS: MORPHINE SULFATE 4 MG/ML SYR/VIAL IV PRN (08:04)
--- NOTE | 2025-08-27 09:23 | DVHPN2 ---
Reviewed: Care Plan, H&P, Labs, Medications, Previous Orders, Radiology Changes from previous H/P or p: No Changes Objective Vitals Vital Signs Date Time Temp Pulse Resp B/P (MAP) Pulse Ox O2 Delivery O2 Flow Rate FiO2 08/27/25 08:46 98.3 116 17 135/62 (86) 93 98.3 08/27/25 08:10 Nasal Cannula* 2 28 Intake/Output Intake and Output 08/27/25 07:00 Intake Total 245 ml Output Total 650 ml Balance -405 ml Intake Oral 25 ml IV Total 220 ml Output Urine Total 650 ml Drainage Total 0 ml # Voids 1 # Bowel Movements 2 Medications Current Medications Medications Dose Ordered Sig/Darci Route Start Time Stop Time Status Last Admin Dose Admin Atorvastatin Calcium 10 mg HS PO 08/20/25 22:00 08/26/25 23:00 10 MG Albuterol 2.5 mg Q6HPRN PRN NEB 08/19/25 22:45 08/23/25 01:05 2.5 MG Ondansetron HCl 4 mg Q4HP PRN IV 08/19/25 22:45 08/21/25 12:23 4 MG Lorazepam 1 mg ONCE PRN IV 08/20/25 23:00 Enoxaparin Sodium 60 mg Q12HR SC 08/21/25 22:00 08/26/25 22:58 60 MG Polyethylene Glycol 17 gm DAILYPRN PRN PO 08/22/25 16:15 08/23/25 09:46 17 GM Methocarbamol 500 mg TID PO 08/23/25 06:00 08/27/25 06:28 500 MG Aspirin 81 mg DAILY PO 08/24/25 10:00 08/25/25 08:44 81 MG Primidone 75 mg HS PO 08/25/25 23:30 08/26/25 23:12 75 MG Dextrose/Sodium Chloride 1,000 ml @ 100 mls/hr Q10H IV 08/26/25 20:15 08/27/25 07:55 100 MLS/HR Ondansetron HCl 4 mg Q4HP PRN IV 08/26/25 20:15 Hold Acetaminophen 650 mg Q6HP PRN PO 08/26/25 20:15 Acetaminophen/ Hydrocodone Bitart 1 tab Q6HP PRN PO 08/26/25 20:15 08/27/25 04:35 1 TAB Cyclobenzaprine HCl 10 mg TID PO 08/26/25 22:00 08/27/25 06:24 10 MG Docusate Sodium 100 mg BID PO 08/26/25 22:00 08/27/25 08:53 100 MG Cefazolin Sodium 50 ml @ 100 mls/hr Q8HR IV 08/26/25 22:00 08/28/25 14:29 08/27/25 06:11 100 MLS/HR Nitroglycerin 0.4 mg Q5MINP PRN SL 08/26/25 20:15 Morphine Sulfate 1 mg Q4HP PRN IV 08/27/25 07:45 08/27/25 08:04 1 MG Morphine Sulfate 2 mg Q30M PRN IV 08/27/25 07:45 Laboratory Results Laboratory Tests 08/24/25 05:21 Coagulation Test 08/26/25 10:42 Prothrombin Time 10.9 sec (9.3-11.8) Prothrombin Time INR 1.03 (0.9-1.15) Activated Partial Thromboplast Time 28.4 SEC (24.5-34.5) Urinalysis Test 08/19/25 16:50 Urine Color Light-yellow (Yellow) Urine Clarity Clear (Clear) Urine pH 6.0 (5.0-9.0) Urine Specific Sentinel 1.014 (1.001-1.035) Urine Protein Trace (Negative) H Urine Ketones 4+ (Negative) H Urine Blood Negative /uL (Negative) Urine Nitrite Negative (Negative) Urine Bilirubin Negative (Negative) Urine Urobilinogen Normal mg/dL (Negative) Urine Leukocyte Esterase Negative /uL (Negative) Urine RBC 1 /hpf (0 - 4) Urine Microscopic WBC 1 /HPF (0-5) Urine Squamous Epithelial Cells Few /hpf (<5) Urine Bacteria None seen /hpf (None Seen) Urine Glucose Normal mg/dL (Normal) Microbiology Microbiology Date/Time Source Procedure Growth Status 08/19/25 17:15 Blood Blood Culture - Final NO GROWTH AFTER 5 DAYS OF INCUBATION. Complete 08/19/25 16:50 Voided Urine Urine Culture - Final Complete Labs and/or images reviewed: Labs reviewed by me, Image(s) reviewed by me Assessment/Plan Assessment/Plan Severe Cervical radiculopathy: Status post cervical diskectomy at multiple levels with allograft placement by Dr. Estrada on 08/26/[address] Meg Clark cleared for surgery Acute Generalized weakness Acute Hypokalemia potassium 2.9: Replace potassium Elevated troponin, downtrending Neutropenia WBC 2.5 Chronic anemia hemoglobin 11 Acute COPD exacerbation Unsteady gait Chronic stroke Chest x-ray negative CT head shows chronic right posterior frontal infarct MRI brain shows chronic right posterior frontal infarct: Consult for Neurology Dr. Tong, primidone 125 mg p.o. HS DVT right lower extremity: Lovenox 1 milligram/kilos subQ b.i.d. Patient lives alone: Social service consult Time spent 46 minutes Advanced care planning time 20 minutes Patient is full code Physical therapy ordered Plan discussed with: Patient My Orders Orders - RACH WU MD Procedure Category Date Status Time C Arm Fluoroscopy Up XY 08/26/25 Resulted To 60min 20:03 Cervical Spine 3v XY 08/26/25 Resulted 20:03 Date of Service: Aug 27, 2025 Billing Provider: RACH WU MD Common Visit Codes: [id number] INP/OBS CARE(HIGH) RACH WU MD Aug 27, 2025 09:23
--- NOTE | 2025-08-27 22:52 | DVHPN2 ---
Progress Note - Dictate Date Seen: Aug 27, 2025 Medical Necessity Reason Pt with a Central, PICC or Fol: No Subjective Ms. Yanez is a 70 years old right-handed female with a history of breast cancer, COPD on home oxygen, she came to the [facility] on 08/19/2025 with a chief complaint of general weakness, gait disturbance I have seen and examined the patient, I have talked to her nurse, she is alert, oriented x3, but energized He reports discomfort in the throat, Urinalysis, 08/19/2025: Unremarkable WBC/HB/PLT/MCV, 08/20/2025: 3.1/12.7/201/97.3 BMP, 08/19/2025: Unremarkable HGB A1c, 08/20/2025: 4.8 Liver function tests, 08/19/2025: Unremarkable Vitamin B12, 08/20/25: 718 Folic acid, 08/20/2025: 2.62 TSH, 08/20/2025: 0.78 FT4, 08/20/2025: 0.75 Extremity venous study, 08/21/2025: 1. Occlusive deep venous thrombus in the mid-distal right femoral vein and right popiteal vein. 2. No evidence of deep venous thrombosis in the left lower extremity. CT head, 08/19/2025: Right posterior frontal lobe suggested area of Chronic infarct. Superimposed acute infarct can not be completely excluded. If there is concern for acute infarct, MRI should be considered for further evalution MRI head, 08/20/2025: No acute intracranial abnormality seen. No evidence for acute infarct. 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 Bilateral cataract extraction MRI C-spine, 08/21/2025: 1. No fracture of the cervical spine. 2. Advanced cervical degenerative disc disease and facet arthropathy with [id number] spinal canal stenosis at C5-C6 and C6-C7; mild spinal canal stenosis at C3-C4 and C4-C5. There is mass effect on the cervical spinal cord at every disc level C3-C6. Recommend spinal surgery consultation if not already obtained. 3. Multilevel significant neural foraminal stenosis including C3-C4 on the right, C4-C5 bilaterally, C5-C6 bilaterally, and C6-C7 bilaterally. These findings may correspond to upper extremity radicular symptoms in the right C4, bilateral C5, bilateral C6, and bilateral C7 nerve root distributions. 4. Slight reversal of normal cervical lordosis is likely chronic for the patient, less likely due to muscle spasm MRI T-spine, 08/21/2025: 1. No fracture of the thoracic spine. 2. Mild thoracic and advanced lower cervical degenerative disc disease. No high-grade spinal canal stenosis at any level in the thoracic spine. 3. Cardiomegaly and bilateral pleural effusions suggestive of CHF. This is better appreciated on chest x-ray dated 08/19/2025. 4. Cholelithiasis. vital signs Vital Sign Date Time Temp Pulse Resp B/P (MAP) Pulse Ox O2 Delivery O2 Flow Rate FiO2 08/27/25 22:20 97 18 159/62 08/27/25 21:00 98.2 96 98.2 08/27/25 20:00 Nasal Cannula* 2 28 Total Intake and Output 08/26/25 08/26/25 08/27/25 15:00 23:00 07:00 Intake Total 170 ml 75 ml Output Total 650 ml Balance -480 ml 75 ml medications Current Medications Medications Dose Ordered Sig/Darci Route Start Time Stop Time Status Last Admin Dose Admin Atorvastatin Calcium 10 mg HS PO 08/20/25 22:00 08/27/25 21:57 10 MG Albuterol 2.5 mg Q6HPRN PRN NEB 08/19/25 22:45 08/27/25 19:49 2.5 MG Ondansetron HCl 4 mg Q4HP PRN IV 08/19/25 22:45 08/21/25 12:23 4 MG Lorazepam 1 mg ONCE PRN IV 08/20/25 23:00 Enoxaparin Sodium 60 mg Q12HR SC 08/21/25 22:00 08/27/25 21:57 60 MG Polyethylene Glycol 17 gm DAILYPRN PRN PO 08/22/25 16:15 08/23/25 09:46 17 GM Methocarbamol 500 mg TID PO 08/23/25 06:00 08/27/25 21:58 500 MG Aspirin 81 mg DAILY PO 08/24/25 10:00 08/25/25 08:44 81 MG Primidone 75 mg HS PO 08/25/25 23:30 08/27/25 21:59 75 MG Dextrose/Sodium Chloride 1,000 ml @ 100 mls/hr Q10H IV 08/26/25 20:15 08/27/25 07:55 100 MLS/HR Ondansetron HCl 4 mg Q4HP PRN IV 08/26/25 20:15 Hold Acetaminophen 650 mg Q6HP PRN PO 08/26/25 20:15 Acetaminophen/ Hydrocodone Bitart 1 tab Q6HP PRN PO 08/26/25 20:15 08/27/25 12:16 1 TAB Cyclobenzaprine HCl 10 mg TID PO 08/26/25 22:00 08/27/25 21:59 10 MG Docusate Sodium 100 mg BID PO 08/26/25 22:00 08/27/25 08:53 100 MG Cefazolin Sodium 50 ml @ 100 mls/hr Q8HR IV 08/26/25 22:00 08/28/25 14:29 08/27/25 21:56 100 MLS/HR Nitroglycerin 0.4 mg Q5MINP PRN SL 08/26/25 20:15 Morphine Sulfate 1 mg Q4HP PRN IV 08/27/25 07:45 08/27/25 22:20 1 MG Morphine Sulfate 2 mg Q30M PRN IV 08/27/25 07:45 objective General: the patient is well developed and nourished. No acute distress. MUSCULOSKELETAL EXAM: Mild tenderness to palpation in the neck MENTAL STATUS: Subjective SPEECH, LANGUAGE, HIGHER CORTICAL FUNCTION: no aphasia or dysathria. CRANIAL NERVES: Pupils are equal, round and reactive. EOMs full and conjugate. No nystagmus. Facial sensation intact in all three divisions bilaterally. Mandibular strength intact. Facial muscles symmetrical and strength intact. SENSATION: Sensation to touch and pinprick is diminished distally in the lower extremities, no sensory level MOTOR: Increased muscle tone in the left arm than leg, questionable increased tone in the right leg. Normal muscle bulk. No fasciculations. No abnormal movements or posturing. Muscle strength of the major groups in the upper extremities is 4/5 with the left-sided weaker. Muscle strength of the major groups in the lower extremities is 4/5. REFLEXES: Deep tendon reflexes: Arms: 3/4 with left-sided stronger, knees: 3/4, ankles: 4/4. No pathological reflexes. CEREBELLAR/COORDINATION: Finger to nose fine bilaterally. GAIT/STATION: Deferred laboratory and microbiology Laboratory Tests 08/24/25 05:21 Test 08/24/25 05:21 Range/Units Serum Glucose 82 74-106 mg/dL Problem List General weakness Gait disturbance Chronic stroke Cervical spine spondylosis Polyneuropathy "Wobbling leg" Hyperreflexia Deep venous thrombosis Assessment/Plan Monitoring Supportive treatment Med surge Aspirin 81 mg daily Lipitor 10 mg daily Primidone 75mg HS (was 125mg b.i.d. at home) Oxygen Lovenox 60 mg subQ b.i.d. Up to chair Physical therapy Orthopedic surgeon More recommendation per clinical course This medical document was created using an electronic medical record system with [employer] dictation system. Although this document has been carefully reviewed, there may still be some phonetic and typographical errors. These areas are purely typographical due to imperfections of the software programs, and do not reflect any compromise in the patient's medical care. Prognosis poor Plan discussed with: Patient, Other SUZAN ROLDAN MD Aug 27, 2025 22:52
--- NOTE | 2025-08-27 23:30 | DVHPN2 ---
Progress Note - Dictate Date Seen: Aug 27, 2025 Medical Necessity Reason Pt with a Central, PICC or Fol: No Subjective Patient was seen and evaluated in follow up. Patient is complaining of neck pain at surgical site. Patient reports some improvement to preoperative symptoms of extremities, strength and motion. vital signs Vital Sign Date Time Temp Pulse Resp B/P (MAP) Pulse Ox O2 Delivery O2 Flow Rate FiO2 08/27/25 10:29 93 Nasal Cannula* 3 32 08/27/25 08:46 98.3 116 17 135/62 (86) 98.3 Total Intake and Output 08/26/25 08/26/25 08/27/25 15:00 23:00 07:00 Intake Total 170 ml 75 ml Output Total 650 ml Balance -480 ml 75 ml medications Current Medications Medications Dose Ordered Sig/Darci Route Start Time Stop Time Status Last Admin Dose Admin Atorvastatin Calcium 10 mg HS PO 08/20/25 22:00 08/26/25 23:00 10 MG Albuterol 2.5 mg Q6HPRN PRN NEB 08/19/25 22:45 08/23/25 01:05 2.5 MG Ondansetron HCl 4 mg Q4HP PRN IV 08/19/25 22:45 08/21/25 12:23 4 MG Lorazepam 1 mg ONCE PRN IV 08/20/25 23:00 Enoxaparin Sodium 60 mg Q12HR SC 08/21/25 22:00 08/26/25 22:58 60 MG Polyethylene Glycol 17 gm DAILYPRN PRN PO 08/22/25 16:15 08/23/25 09:46 17 GM Methocarbamol 500 mg TID PO 08/23/25 06:00 08/27/25 06:28 500 MG Aspirin 81 mg DAILY PO 08/24/25 10:00 08/25/25 08:44 81 MG Primidone 75 mg HS PO 08/25/25 23:30 08/26/25 23:12 75 MG Dextrose/Sodium Chloride 1,000 ml @ 100 mls/hr Q10H IV 08/26/25 20:15 08/27/25 07:55 100 MLS/HR Ondansetron HCl 4 mg Q4HP PRN IV 08/26/25 20:15 Hold Acetaminophen 650 mg Q6HP PRN PO 08/26/25 20:15 Acetaminophen/ Hydrocodone Bitart 1 tab Q6HP PRN PO 08/26/25 20:15 08/27/25 12:16 1 TAB Cyclobenzaprine HCl 10 mg TID PO 08/26/25 22:00 08/27/25 06:24 10 MG Docusate Sodium 100 mg BID PO 08/26/25 22:00 08/27/25 08:53 100 MG Cefazolin Sodium 50 ml @ 100 mls/hr Q8HR IV 08/26/25 22:00 08/28/25 14:29 08/27/25 06:11 100 MLS/HR Nitroglycerin 0.4 mg Q5MINP PRN SL 08/26/25 20:15 Morphine Sulfate 1 mg Q4HP PRN IV 08/27/25 07:45 08/27/25 08:04 1 MG Morphine Sulfate 2 mg Q30M PRN IV 08/27/25 07:45 objective GENERAL: Alert and oriented x 3. No acute distress. EYES: PERRL, EOMI. Anicteric. HENT: Moist mucous membranes. LUNGS: Clear to auscultation bilaterally. CARDIOVASCULAR: Regular rate and rhythm. ABDOMEN: Soft, nontender and nondistended. EXTREMITIES: No edema. NEUROLOGIC: No focal neurological deficits. SKIN: Warm, dry. laboratory and microbiology Laboratory Tests 08/24/25 05:21 Test 08/24/25 05:21 Range/Units Serum Glucose 82 74-106 mg/dL Problem List Preprocedural cardiovascular examination. Cervical stenosis of spinal canal. Occlusive DVT in mid distal right femoral vein and right popliteal vein. COPD with continuous home O2. Hypokalemia. History of CVA. History of breast cancer status post right breast lumpectomy. Tobacco use. Assessment/Plan Continued all current supportive medical care. Morphine and [place] for pain management. Aspirin, Lipitor. IV antibiotics as ordered. DVT prophylactics. Additional plan as per the hospital course. Plan discussed with: Patient DORIAN LARSEN MD Aug 27, 2025 13:25
[2025-08-28 01:00] VITALS: BP 136/62; PULSE 94; RESP 17; TEMP 98; O2SAT 95
[2025-08-28 05:00] VITALS: BP 129/65; PULSE 86; RESP 18; TEMP 98.4; O2SAT 96
[2025-08-28 08:05] VITALS: PULSE 83
--- NOTE | 2025-08-28 08:37 | DVHPN2 ---
Reviewed: Care Plan, H&P, Labs, Medications, Previous Orders, Radiology Changes from previous H/P or p: No Changes Objective Vitals Vital Signs Date Time Temp Pulse Resp B/P (MAP) Pulse Ox O2 Delivery O2 Flow Rate FiO2 08/28/25 05:00 98.4 86 18 129/65 (86) 96 98.4 08/27/25 20:00 Nasal Cannula* 2 28 Intake/Output Intake and Output 08/28/25 07:00 Intake Total 1320 ml Output Total 1035 ml Balance 285 ml Intake Oral 1170 ml IV Total 150 ml Output Urine Total 1035 ml Medications Current Medications Medications Dose Ordered Sig/Darci Route Start Time Stop Time Status Last Admin Dose Admin Atorvastatin Calcium 10 mg HS PO 08/20/25 22:00 08/27/25 21:57 10 MG Albuterol 2.5 mg Q6HPRN PRN NEB 08/19/25 22:45 08/27/25 19:49 2.5 MG Ondansetron HCl 4 mg Q4HP PRN IV 08/19/25 22:45 08/21/25 12:23 4 MG Lorazepam 1 mg ONCE PRN IV 08/20/25 23:00 Enoxaparin Sodium 60 mg Q12HR SC 08/21/25 22:00 08/27/25 21:57 60 MG Polyethylene Glycol 17 gm DAILYPRN PRN PO 08/22/25 16:15 08/23/25 09:46 17 GM Methocarbamol 500 mg TID PO 08/23/25 06:00 08/28/25 05:33 500 MG Aspirin 81 mg DAILY PO 08/24/25 10:00 08/25/25 08:44 81 MG Primidone 75 mg HS PO 08/25/25 23:30 08/27/25 21:59 75 MG Dextrose/Sodium Chloride 1,000 ml @ 100 mls/hr Q10H IV 08/26/25 20:15 08/28/25 02:17 100 MLS/HR Ondansetron HCl 4 mg Q4HP PRN IV 08/26/25 20:15 Hold Acetaminophen 650 mg Q6HP PRN PO 08/26/25 20:15 Acetaminophen/ Hydrocodone Bitart 1 tab Q6HP PRN PO 08/26/25 20:15 08/27/25 12:16 1 TAB Cyclobenzaprine HCl 10 mg TID PO 08/26/25 22:00 08/28/25 05:34 10 MG Docusate Sodium 100 mg BID PO 08/26/25 22:00 08/27/25 08:53 100 MG Cefazolin Sodium 50 ml @ 100 mls/hr Q8HR IV 08/26/25 22:00 08/28/25 14:29 08/28/25 05:33 100 MLS/HR Nitroglycerin 0.4 mg Q5MINP PRN SL 08/26/25 20:15 Morphine Sulfate 1 mg Q4HP PRN IV 08/27/25 07:45 08/27/25 22:20 1 MG Morphine Sulfate 2 mg Q30M PRN IV 08/27/25 07:45 Laboratory Results Laboratory Tests 08/24/25 05:21 Urinalysis Test 08/19/25 16:50 Urine Color Light-yellow (Yellow) Urine Clarity Clear (Clear) Urine pH 6.0 (5.0-9.0) Urine Specific [place] 1.014 (1.001-1.035) Urine Protein Trace (Negative) H Urine Ketones 4+ (Negative) H Urine Blood Negative /uL (Negative) Urine Nitrite Negative (Negative) Urine Bilirubin Negative (Negative) Urine Urobilinogen Normal mg/dL (Negative) Urine Leukocyte Esterase Negative /uL (Negative) Urine RBC 1 /hpf (0 - 4) Urine Microscopic WBC 1 /HPF (0-5) Urine Squamous Epithelial Cells Few /hpf (<5) Urine Bacteria None seen /hpf (None Seen) Urine Glucose Normal mg/dL (Normal) Microbiology Microbiology Date/Time Source Procedure Growth Status 08/19/25 17:15 Blood Blood Culture - Final NO GROWTH AFTER 5 DAYS OF INCUBATION. Complete 08/19/25 16:50 Voided Urine Urine Culture - Final Complete Labs and/or images reviewed: Labs reviewed by me, Image(s) reviewed by me Assessment/Plan Assessment/Plan Severe Cervical radiculopathy: Status post cervical diskectomy at multiple levels with allograft placement by Dr. Estrada on 08/26/[address] Meg Clark cleared for surgery Acute Generalized weakness Acute Hypokalemia potassium 2.9: Replace potassium Elevated troponin, downtrending Neutropenia WBC 2.5 Chronic anemia hemoglobin 11 Acute COPD exacerbation Unsteady gait Chronic stroke Chest x-ray negative CT head shows chronic right posterior frontal infarct MRI brain shows chronic right posterior frontal infarct: Consult for Neurology Dr. Tong, primidone 125 mg p.o. HS DVT right lower extremity: Lovenox 1 milligram/kilos subQ b.i.d. transitioned to Eliquis Patient lives alone: Social service consult Time spent 46 minutes Advanced care planning time 20 minutes Patient is full code Physical therapy ordered Will DC Plan discussed with: Patient Date of Service: Aug 28, 2025 Billing Provider: RACH WU MD Common Visit Codes: [id number] INP/OBS CARE(HIGH) RACH WU MD Aug 28, 2025 08:37
[2025-08-28] MEDS: APIXABAN 5 MG TAB PO SCH (09:50)
[2025-08-28 10:11] VITALS: O2SAT 95
--- NOTE | 2025-08-29 04:22 | DVHPN2 ---
Progress Note - Dictate Date Seen: Aug 28, 2025 Medical Necessity Reason Pt with a Central, PICC or Fol: No Subjective Patient was seen and evaluated in follow up. Patient has no new complaints at this time. Patient denies any cardiac symptoms. Patient is cardiac stable for discharge. vital signs Vital Sign Date Time Temp Pulse Resp B/P (MAP) Pulse Ox O2 Delivery O2 Flow Rate FiO2 08/28/25 10:11 95 Nasal Cannula* 3 32 08/28/25 05:00 98.4 86 18 129/65 (86) 98.4 Total Intake and Output 08/27/25 08/27/25 08/28/25 15:00 23:00 07:00 Intake Total 50 ml 700 ml 570 ml Output Total 475 ml 560 ml Balance 50 ml 225 ml 10 ml medications Current Medications Medications Dose Ordered Sig/Darci Route Start Time Stop Time Status Last Admin Dose Admin Atorvastatin Calcium 10 mg HS PO 08/20/25 22:00 08/27/25 21:57 10 MG Albuterol 2.5 mg Q6HPRN PRN NEB 08/19/25 22:45 08/27/25 19:49 2.5 MG Ondansetron HCl 4 mg Q4HP PRN IV 08/19/25 22:45 08/21/25 12:23 4 MG Lorazepam 1 mg ONCE PRN IV 08/20/25 23:00 Polyethylene Glycol 17 gm DAILYPRN PRN PO 08/22/25 16:15 08/23/25 09:46 17 GM Methocarbamol 500 mg TID PO 08/23/25 06:00 08/28/25 05:33 500 MG Aspirin 81 mg DAILY PO 08/24/25 10:00 08/28/25 09:52 81 MG Primidone 75 mg HS PO 08/25/25 23:30 08/27/25 21:59 75 MG Dextrose/Sodium Chloride 1,000 ml @ 100 mls/hr Q10H IV 08/26/25 20:15 08/28/25 02:17 100 MLS/HR Ondansetron HCl 4 mg Q4HP PRN IV 08/26/25 20:15 Hold Acetaminophen 650 mg Q6HP PRN PO 08/26/25 20:15 Acetaminophen/ Hydrocodone Bitart 1 tab Q6HP PRN PO 08/26/25 20:15 08/27/25 12:16 1 TAB Cyclobenzaprine HCl 10 mg TID PO 08/26/25 22:00 08/28/25 05:34 10 MG Docusate Sodium 100 mg BID PO 08/26/25 22:00 08/28/25 09:49 100 MG Cefazolin Sodium 50 ml @ 100 mls/hr Q8HR IV 08/26/25 22:00 08/28/25 14:29 08/28/25 05:33 100 MLS/HR Nitroglycerin 0.4 mg Q5MINP PRN SL 08/26/25 20:15 Morphine Sulfate 1 mg Q4HP PRN IV 08/27/25 07:45 08/27/25 22:20 1 MG Morphine Sulfate 2 mg Q30M PRN IV 08/27/25 07:45 Apixaban 10 mg BID PO 08/28/25 10:00 09/03/25 10:00 08/28/25 09:50 10 MG objective GENERAL: Alert and oriented x 3. No acute distress. EYES: PERRL, EOMI. Anicteric. HENT: Moist mucous membranes. LUNGS: Clear to auscultation bilaterally. CARDIOVASCULAR: Regular rate and rhythm. ABDOMEN: Soft, nontender and nondistended. EXTREMITIES: No edema. NEUROLOGIC: No focal neurological deficits. SKIN: Warm, dry. laboratory and microbiology Laboratory Tests 08/24/25 05:21 Test 08/24/25 05:21 Range/Units Serum Glucose 82 74-106 mg/dL Problem List Preprocedural cardiovascular examination. Cervical stenosis of spinal canal. Occlusive DVT in mid distal right femoral vein and right popliteal vein. COPD with continuous home O2. Hypokalemia. History of CVA. History of breast cancer status post right breast lumpectomy. Tobacco use. Assessment/Plan Continued all current supportive medical care. Eliquis. Morphine and [place] for pain management. Aspirin, Lipitor. IV antibiotics as ordered. Additional plan as per the hospital course. Plan discussed with: Patient DORIAN LARSEN MD Aug 28, 2025 13:02
--- NOTE | 2025-08-29 08:19 | DVHDS2 ---
Discharge Summary Date of Admission Aug 19, 2025 at 22:37 Date of Discharge: Aug 28, 2025 Admitting Diagnosis Neck pain Wounds: C-spine surgery Labs/Diagnostic Data: Laboratory Results Test 08/26/25 10:42 08/24/25 05:21 08/23/25 10:58 08/20/25 19:59 Prothrombin Time 10.9 sec (9.3-11.8) Prothrombin Time INR 1.03 (0.9-1.15) Activated Partial Thromboplast Time 28.4 SEC (24.5-34.5) White Blood Count 1.9 10^3/uL (4.4-10.8) Red Blood Count 2.92 10^6/uL (4.0-5.20) Hemoglobin 9.0 g/dL (12.2-16.2) Hematocrit 27.5 % (36.0-46.0) Mean Corpuscular Volume 94.2 fL (80.0-100.0) Mean Corpuscular Hemoglobin 30.9 pg (28.0-32.0) Mean Corpuscular Hemoglobin Concent 32.8 g/dL (32.0-36.0) Red Cell Distribution Width 20.1 % (11.8-14.3) Platelet Count 164 10^3/uL (140-450) Mean Platelet Volume 6.3 fL (6.9-10.8) Neutrophils (%) (Auto) % (37.0-80.0) Lymphocytes (%) (Auto) % (10.0-50.0) Monocytes (%) (Auto) % (0.0-12.0) Basophils (%) (Auto) % (0.0-2.0) Neutrophils # (Auto) 10 ^3/uL (1.6-8.6) Lymphocytes # (Auto) 10 ^3/uL (0.4-5.4) Monocytes # (Auto) 10 ^3/uL (0-1.3) Differential Total Cells Counted 100.0 (100) Neutrophils % (Manual) 63 (37.0-80.0) Band Neutrophils % (Manual) 1 Lymphocytes % (Manual) 27 (10.0-50.0) Monocytes % (Manual) 9 (0-12) Eosinophils % (Manual) 0 (0-7) Basophils % (Manual) 0 (0.0-2.0) Metamyelocytes % (manual) 0 Myelocytes % (Manual) 0 Promyelocytes % (Manual) 0 Blast Cells % (Manual) 0 Reactive Lymphocytes 0 Platelet Estimate Adequate Sodium Level 143 mmol/L (136-145) Potassium Level 3.2 mmol/L (3.5-5.1) Chloride Level 104 mmol/L (98-107) Carbon Dioxide Level 33 mmol/L (20-31) Anion Gap 6 (5-15) Blood Urea Nitrogen < 5 mg/dL (9-23) Creatinine 0.38 mg/dL (0.550-1.02) Glomerular Filtration Rate Calc 107 mL/min (>90) BUN/Creatinine Ratio 13.2 (10.0-20.0) Serum Glucose 82 mg/dL (74-106) Calcium Level 8.1 mg/dL (8.7-10.4) Nucleated Red Blood Cells 2.0 % Anisocytosis (manual) Slight Magnesium Level 1.7 mg/dL (1.6-2.6) Triglycerides Level 89 mg/dL (< 150) Cholesterol Level 139 mg/dL (< 200) LDL Cholesterol 56 mg/dL (< 100) HDL Cholesterol 59 mg/dL (40-59) Thyroid Stimulating Hormone (TSH) 0.78 uIU/mL (0.55-4.78) Test 08/20/25 17:58 08/20/25 15:35 08/20/25 14:29 08/20/25 04:15 Hemoglobin A1c 4.8 % A1C (<5.7) Vitamin B12 Level 718 pg/mL (211-911) Folic Acid 2.62 ng/mL (>5.38) Free Thyroxine (T4) Calculated 0.75 ng/dL (0.89-1.76) Influenza Type A Antigen Negative (Negative) Influenza Type B Antigen Negative (Negative) SARS-CoV-2 Antigen (Rapid) Negative (NEGATIVE) D-Dimer, Quantitative 3.07 mg/L FEU (0.0-0.49) Eosinophils (%) (Auto) 0.6 % (0.0-7.0) Eosinophils # (Auto) 0 10 ^3/uL (0-0.8) Basophils # (Auto) 0 10 ^3/uL (0-0.2) Test 08/19/25 19:59 08/19/25 17:05 08/19/25 16:50 Troponin I High Sensitivity 38 ng/L (</=34) Lactic Acid Level 0.7 mmol/L (0.4-2.0) Total Bilirubin 0.8 mg/dL (0.2-1.0) Aspartate Amino Transferase (AST) 24 U/L (13-40) Alanine Aminotransferase (ALT) 17 U/L (7-40) Alkaline Phosphatase 82 U/L (46-116) Total Protein 6.2 g/dL (5.7-8.2) Albumin 3.8 g/dL (3.2-4.8) Lipase 21 U/L (12-53) Urine Color Light-yellow (Yellow) Urine Clarity Clear (Clear) Urine pH 6.0 (5.0-9.0) Urine Specific [place] 1.014 (1.001-1.035) Urine Protein Trace (Negative) Urine Ketones 4+ (Negative) Urine Blood Negative /uL (Negative) Urine Nitrite Negative (Negative) Urine Bilirubin Negative (Negative) Urine Urobilinogen Normal mg/dL (Negative) Urine Leukocyte Esterase Negative /uL (Negative) Urine RBC 1 /hpf (0 - 4) Urine Microscopic WBC 1 /HPF (0-5) Urine Squamous Epithelial Cells Few /hpf (<5) Urine Bacteria None seen /hpf (None Seen) Urine Glucose Normal mg/dL (Normal) Other Laboratory Tests 08/24/25 05:21 Brief Hx & Hospital Course: Discharge summary dictated after the patient left AMA 70-year-old female admitted for severe cervical radiculopathy underwent cervical diskectomy at multiple levels with allograft placement by Dr. Estrada on 08/26/2025 patient was cleared for surgery by cardiology Dr. Clark patient has a history of COPD stroke CT head showed chronic right posterior frontal infarct MRI brain showed chronic right posterior frontal infarct neurology consult by Dr. Tong placed on primidone 125 mg HS patient complained of pain in the right lower extremity . Venous ultrasound showed DVT right lower extremity placed on Lovenox therapeutic dose converted to Eliquis p.o. while awaiting further stabilization and proper discharge patient left AMA on 08/28/2025. Consequences and complications including possible explained to the patient and she verbalized understanding. Patient needs Eliquis at least for three months for the DVT. Prescription for Eliquis 10 mg p.o. b.i.d. seven days and 5 mg p.o. b.i.d. for three months sent to the [facility]. Charge Nurse Anton was advised to call the patient and inform to picker feeder the Eliquis prescription from [facility] today to prevent further complications like PE. Consults/Reason for consult Cardiology Dr. Clark Spine surgeon Dr. Estrada Operations or Procedures C-spine surgery Condition at Discharge: Fair Final Diagnosis/Problems List Severe Cervical radiculopathy: Status post cervical diskectomy at multiple levels with allograft placement by Dr. Estrada on 08/26/[address] Meg Clark cleared for surgery Acute Generalized weakness Acute Hypokalemia potassium 2.9: Replace potassium Elevated troponin, downtrending Neutropenia WBC 2.5 Chronic anemia hemoglobin 11 Acute COPD exacerbation Unsteady gait Chronic stroke Chest x-ray negative CT head shows chronic right posterior frontal infarct MRI brain shows chronic right posterior frontal infarct: Consult for Neurology Dr. Tong, primidone 125 mg p.o. HS DVT right lower extremity: Lovenox 1 milligram/kilos subQ b.i.d. transitioned to Eliquis Discharge Disposition: Still a Patient Discharge Instruct/Medications Diet comment: Not applicable new line patient left AMA Activity comment: Not applicable new line patient left AMA Follow Up/Referral: Not applicable new line patient left AMA Scheduled Primidone (Primidone), 1 TAB PO BID, (Reported) Miscellaneous Medications Omeprazole (Gnp Omeprazole), 40 MG PO, (Reported) 39 (Time taken for discharge summary 39 minutes) Discharge Statement: "Patient was advised to return to the ER or call 911 if any headaches, dizziness, shortness of breath, chest pain, abdominal pain, bleeding, fevers, or worsening of medical condition. Patient was counseled about treatment plan, medications, possible side effects, patientverbalized understanding. All questions were answered to the best of my ability. This discharge took greater then 30 minutes in planning, reviewing documentation, counseling the patient, and discussing with other team members." ASSESSMENT ASSESSMENT Hospital Course Left AMA Assessment Please discharge pain patient with postoperative oral pain medications Date of Service: Aug 29, 2025 Billing Provider: RACH WU MD Common Visit Codes: [id number] DISCH DAY >30min RACH WU MD Aug 29, 2025 08:19
== END 2025-08-28 12:00 | disposition left against medical advice (07) | DRG 472 ==
LOC: ER 16:02 → EDBD 16:02 → OVERFLOW 22:37 → EAST 08-20 05:30 → CENTRAL 08-20 18:27
PROVIDERS: ADMIT Family Medicine; ATTEND Family Medicine
PROC: 00NW0ZZ Release Cervical Spinal Cord, Open Approach (ICD-10-PCS; 2025-08-26)
PROC: 0RB30ZZ Excision of Cervical Vertebral Disc, Open Approach (ICD-10-PCS; 2025-08-26)
PROC: 01N10ZZ Release Cervical Nerve, Open Approach (ICD-10-PCS; 2025-08-26)
PROC: 4A11X4G Monitoring of Peripheral Nervous Electrical Activity, Intraoperative, External Approach (ICD-10-PCS; 2025-08-26)
PROC: 0RG20A0 Fusion of 2 or more Cervical Vertebral Joints with Interbody Fusion Device, Anterior Approach, Anterior Column, Open Approach (ICD-10-PCS; principal; 2025-08-26 17:02)
DX: M48.02 Spinal stenosis, cervical region (principal); G32.0 Subacute combined degeneration of spinal cord in diseases classified elsewhere; I82.411 Acute embolism and thrombosis of right femoral vein; D70.9 Neutropenia, unspecified; J90 Pleural effusion, not elsewhere classified; I82.431 Acute embolism and thrombosis of right popliteal vein; J44.1 Chronic obstructive pulmonary disease with (acute) exacerbation; D64.9 Anemia, unspecified; M47.12 Other spondylosis with myelopathy, cervical region; G62.9 Polyneuropathy, unspecified; Z53.29 Procedure and treatment not carried out because of patient's decision for other reasons; E87.6 Hypokalemia; M50.10 Cervical disc disorder with radiculopathy, unspecified cervical region; M47.22 Other spondylosis with radiculopathy, cervical region; Z79.899 Other long term (current) drug therapy; Z88.6 Allergy status to analgesic agent; Z88.5 Allergy status to narcotic agent; Z85.3 Personal history of malignant neoplasm of breast; Z83.3 Family history of diabetes mellitus; Z82.49 Family history of ischemic heart disease and other diseases of the circulatory system; Z86.73 Personal history of transient ischemic attack (TIA), and cerebral infarction without residual deficits; Z99.81 Dependence on supplemental oxygen; F17.210 Nicotine dependence, cigarettes, uncomplicated; Z98.41 Cataract extraction status, right eye; Z98.42 Cataract extraction status, left eye
CPT/HCPCS: 36415; 70450; 70551; 71045; 72040; 72141; 72146; 76000; 80048; 80053; 80061; 81001; 82607; 82746; 83036; 83605; 83690; 83735; 84439; 84443; 84484; 85007; 85025; 85027; 85379; 85610; 85730; 86850; 86900; 86901; 87040; 87086; 87426; 87804; 93005; 93306; 93970; 94640; 97110; 97116; 97163; 97530; G0378; J1100; J1956; J2003; J2250; J2405; J2704